=== PATIENT | female | born 1985 | race Caucasian/White ===

== ENCOUNTER → 2017-12-23 11:15 | Outpatient (CLI) | payer MEDICAID, SELFPAY ==
--- NOTE | 2017-12-23 11:20 | XR_ITS ---
XR chest 2V HISTORY: Cough and shortness of air, smoker ITS.REASON: COPD ORDERING PHYSICIAN: Olga Ag PATIENT AGE: 32 years COMPARISON: 10/17/2012 FINDINGS: The cardiomediastinal silhouette and pulmonary vascularity are within normal limits. The lungs are clear without infiltrates, suspicious nodules, or pleural effusions. No acute bony abnormalities. IMPRESSION: Negative chest, no acute finding
== END ==
PROVIDERS: PCP Nurse Practitioner Family; Visit Provider Nurse Practitioner Family
DX: J44.1 Chronic obstructive pulmonary disease with (acute) exacerbation (principal)
CPT/HCPCS: 71046

== ENCOUNTER 2018-03-22 11:46 | Emergency (ER) | payer SELFPAY ==
[2018-03-22 11:49] VITALS: BP 128/57; PULSE 77; RESP 18; TEMP 36.7; O2SAT 99; BMI 23.0
[2018-03-22 11:53] VITALS: BP 128/51; PULSE 77; RESP 18; TEMP 36.7; O2SAT 99; BMI 23.0
--- NOTE | 2018-03-22 12:03 | HMH.EDUTC ---
[facility] [place] Clinical Impression: Muscle strain of left thigh Qualifiers: Encounter type: initial encounter Qualified Code(s): S76.912A - Strain of unspecified muscles, fascia and tendons at thigh level, left thigh, initial encounter Disposition: Home, Self-Care Condition on Discharge: Good Instructions: DI for Muscle Strain, How To Perform RICE (Rest, Ice, Compress, Elevate), How to Use Crutches Additional Instructions: * weight bearing as tolerated but if painful, continue to use crutches * Seated work only the next 2-3 days to allow time for muscle to rest * Rest * ice w/ a cold pack or frozen bag of vegetables 15-20 mins several times a day but no more than once a hour. Do this for up to 3 days. * Elevate as possible to help reduce swelling and therefore, pain * Naproxen every 12 hours as needed for pain and inflammation. If you need something more, you can take tylenol every 4 hours as needed as long as your primary care provider has told you it is ok to take both. * No additional anti-inflammatories like motrin, aleve, advil with the above amount of naproxen. You CAN still take Tylenol every 4 hours as needed if you need something more for pain. * Remember you had a toradol shot, similiar anti-inflammatory in clinic so wait before taking more. Prescriptions: Naproxen 500 mg PO BID #14 tab Referrals: Olga Ag [Primary Care Provider] - (Immediately for new or worsening symptoms but if no improvement by Wednesday with our POC, follow up for further evaluation, management and work restrictions. ) Forms: Work/School Release Time of Disposition: 13:33 Medical Decision Making - Gian Inquiry Pt receiving controlled substance: No Vital Signs: 03/22/18 11:49 03/22/18 11:53 Temperature 98.1 F 98.1 F Temperature Source Oral Temporal Artery Scan Pulse Rate [Left Brachial] 77 77 Respiratory Rate 18 18 Blood Pressure [Left Arm] 128/57 128/51 Blood Pressure Mean [Left Arm] 80 76 Blood Pressure Source [Left Arm] Automatic Cuff Automatic Cuff Blood Pressure Position [Left Arm] Sitting Sitting 02 Sat by Pulse Oximetry 99 99 Oxygen Delivery Method Room Air Room Air Orders (Tests/Meds): ED MEDICATIONS Discontinued Medications Generic Name Dose Route Start Last Admin Trade Name Freq PRN Reason Stop Dose Admin Ketorolac Tromethamine 60 mg 03/22/18 12:13 03/22/18 12:17 Toradol 60mg/2ml Vial IM 03/22/18 12:14 60 mg ONCE ONE Administration - Radiology Data #1 Image(s): Femur Image Reviewed: Yes I reviewed the patient's radiology image Preliminary Findings: Normal/NAD - US Data US Images: Lower Extremity ED US Reviewed: Yes: I have reviewed the patient's US results Preliminary Findings: Normal/NAD Findings Narrative: Insurance And Benefits Clerk reports negative left LE doppler - Reevaluation(s) Time: 12:31 Reevaluation #1: Discussed xray with pt. Wants to rule out DVT. Doppler discussed and ordered. Dept notified 1315: Pt returned from vascular lab. Tech reports negative doppler. results and POC rvwd w/ patient. Pt prefers restrictions for work tomorrow rather than off work. Closed -Sun for inventory. Called Danyelle at her job with me in room and states she will try to work with the restrictions for tomorrow if faxed to [phone]. This is NOT workman's comp [facility] - General Stated complaint: left leg pain, no accident Time Seen by Provider: 03/22/18 12:03 Mode of Arrival: Family Vehicle Source of Information: Patient Limitations: No Limitations Description of Symptoms (Recalled from Triage Doc. by RN): C/O LEFT THIGH PAIN SINCE YESTERDAY. THROBBING IN NATURE. NO INJURY HEENT Symptoms (Recalled from RN notes): No Resp Symptoms (Recalled from RN notes): No Skin Symptoms (Recalled from RN notes): No MS Symptoms (Recalled from RN notes): Yes Functional Status (Recalled from RN notes): N/A - History of Present Illness Provider Complaint: c/o left anterior thigh yasmin
--- NOTE | 2018-03-22 12:13 | XR_ITS ---
XR femur LT 2V CLINICAL INDICATION: ITS.REASON: thigh pain w/o known trauma ORDERING PHYSICIAN: Kaylee Olguin PATIENT AGE: 32 years Comparison: None FINDINGS: No bony or joint abnormality. Unremarkable appearing soft tissues IMPRESSION: Negative left femur
--- NOTE | 2018-03-22 12:30 | NVE_ITS ---
Venous Exam Indications: 729.5 Pain in limb. thigh. IMPRESSIONS 1. There is no evidence of significant Reflux. 2. No evidence of deep or superficial vein thrombosis involving the left lower extremity Left lower extremity venous duplex evaluation. Doppler flow study including spectral analysis, color and dunn scale imaging. Location: Vascular laboratory. Patient status: Emergency department. Tables: Venous flow and imaging: + +-------+ + Location Overall Flow properties + +-------+ + Left common femoral Patent Normal phasicity; spontaneous; normal augmentation; compressible + +-------+ + Left saphenofemoral junction Patent Compressible + +-------+ + Left profunda femoral Patent Compressible + +-------+ + Left femoral Patent Normal phasicity; spontaneous; normal augmentation; compressible + +-------+ + Left greater saphenous Patent Normal phasicity; spontaneous; normal augmentation; compressible + +-------+ + Left popliteal Patent Normal phasicity; spontaneous; normal augmentation; compressible + +-------+ + Left posterior tibial Patent Compressible + +-------+ + Left peroneal Patent Compressible + +-------+ + Left gastrocnemius Patent Compressible + +-------+ + Left soleal Patent Compressible + +-------+ + (Report amended ) Electronically signed by: Jules Olmos [id number]
[2018-03-22 13:47] VITALS: BP 128/51; PULSE 77; RESP 18; TEMP 36.7; O2SAT 99
== END 2018-03-22 13:49 | disposition home or self-care (01) ==
PROVIDERS: Emergency Provider Nurse Practitioner Family; Family Provider Emergency Medicine; PCP Nurse Practitioner Family
DX: S76.912A Strain of unspecified muscles, fascia and tendons at thigh level, left thigh, initial encounter (principal); J45.909 Unspecified asthma, uncomplicated; F32.9 Major depressive disorder, single episode, unspecified; Z88.6 Allergy status to analgesic agent
CPT/HCPCS: 73552; 93971; 96372; 99201

== ENCOUNTER → 2019-02-24 11:20 | Outpatient (CLI) | payer OTHER, SELFPAY ==
--- NOTE | 2019-02-24 11:25 | XR_ITS ---
XR sacrum coccyx min 2V CLINICAL INDICATION: Injury with pain ITS.REASON: LOW BACK PAIN ORDERING PHYSICIAN: Olga Ag PATIENT AGE: 33 years Comparison: None FINDINGS: No fracture, dislocation, lytic, or blastic change evident. IMPRESSION: Negative sacrum/coccyx
== END ==
PROVIDERS: PCP Nurse Practitioner Family; Visit Provider Nurse Practitioner Family
DX: M54.5 Low back pain (principal)
CPT/HCPCS: 72220

== ENCOUNTER 2020-07-30 18:55 | Emergency (ER) | payer OTHER, SELFPAY ==
[2020-07-30 19:20] VITALS: BP 128/82; PULSE 86; RESP 16; TEMP 36.8; O2SAT 99; BMI 27.4
--- NOTE | 2020-07-30 19:29 | XR_ITS ---
PROCEDURE: XR CHEST 2V CLINICAL HISTORY: COPD/HAS COVID SYMPTOM Cough and congestion COMPARISON: CR CXR2 CHEST-AP VIEW ONLY from 10/17/2012 CR CXR2V XR chest 2V from 12/23/2017 FINDINGS: The cardiomediastinal silhouette and pulmonary vascularity are within normal limits. The lungs are clear without infiltrates, suspicious nodules, or pleural effusions. Mild upper thoracic curvature convex right. IMPRESSION: No acute findings. Dictated by: Jules Olmos MD 07/31/2020 05:01 Jules Olmos MD in [place] 07/31/2020 05:01
--- NOTE | 2020-07-30 19:54 | HMH.EDUTC ---
[facility] [place] Dis[place] Clinical Impression: Viral syndrome Disposition: Home, Self-Care Condition on Discharge: Good Instructions: DI for Viral Syndrome Additional Instructions: Drink plenty of fluids. Take tylenol for pain or fever. Take the medications as directed. Follow up with your regular doctor. GO TO THE ER FOR ANY WORSENING SYMPTOMS Prescriptions: Promethazine HCl [Phenergan 25mg tab] 25 mg PO Q6H PRN #20 tab PRN Reason: Nausea And Vomiting Transmission Status: Pending to [facility] # Azithromycin [Z-Bob 250mg Tab*] 250 mg PO UD DOSE PK #6 tab Transmission Status: Pending to [facility] # Referrals: Olga Ag [Primary Care Provider] - Time of Disposition: 20:07 Medical Decision Making - Medical Records Medical records reviewed: No: I reviewed the patient's medical records. - Gian Inquiry Pt receiving controlled substance: No Vital Signs: 07/30/20 19:20 Temperature 98.2 F Temperature Source Oral Pulse Rate [Right Brachial] 86 Respiratory Rate 16 Blood Pressure [Right Arm] 128/82 Blood Pressure Mean [Right Arm] 97 Blood Pressure Source [Right Arm] Automatic Cuff Blood Pressure Position [Right Arm] Sitting 02 Sat by Pulse Oximetry 99 Oxygen Delivery Method Room Air Orders (Tests/Meds): ED MEDICATIONS Discontinued Medications Generic Name Dose Route Start Last Admin Trade Name Freq PRN Reason Stop Dose Admin Ondansetron HCl 4 mg 07/30/20 20:03 07/30/20 20:05 Ondansetron 4mg Odt SL 07/30/20 20:04 4 mg ONCE ONE Administration ORDERS Category Date Time Status Chest XR 2 view (NOT portable) [XR chest 2V] Stat Exams 07/30/20 19:29 Ordered Covid-19 Nasal PCR Sendout [facility] Routine Lab 07/30/20 19:15 Received - Radiology Data #1 Image(s): Chest Image Reviewed: Yes I reviewed the patient's radiology image Preliminary Findings: No Infiltrates Seen [facility] HPI - General Stated complaint: Fever,Sore thoat,cough,SOB Time Seen by Provider: 07/30/20 19:55 Mode of Arrival: Ambulatory Source of Information: Patient Limitations: No Limitations Description of Symptoms (Recalled from Triage Doc. by RN): PATIENT C/O FEVER, SOA, HEADACHE, NAUSEA, AND SORE THROAT X 2 DAYS. DENIES ANY DIRECT COVID EXPOSURE HEENT Symptoms (Recalled from RN notes): Yes Resp Symptoms (Recalled from RN notes): Yes Skin Symptoms (Recalled from RN notes): No MS Symptoms (Recalled from RN notes): No Functional Status (Recalled from RN notes): WNL - History of Present Illness Provider Complaint: She reports that for the past 2 days she has had a cough, chest congestion, headache, sore throat, and body aches. She denies any contact with someone with covid that she knows of. - Related Data Home Medications Medication Instructions Recorded Confirmed Citalopram Hydrobromide [Celexa 20 mg pe PO DAILY 01/31/18 08/02/19 20mg Tablet] estradioL [Estradiol] 2 mg PO DAILY 01/31/18 08/02/19 Levocetirizine Dihydrochloride 5 mg PO DAILY 06/08/19 08/02/19 [Xyzal] Previous Rx's Medication Instructions Recorded Azithromycin [Z-Bob 250mg Tab*] 250 mg PO UD DOSE PK #6 tab 08/17/19 Fluticasone Propionate [Flonase 2 spr NS DAILY #1 bottle 08/17/19 50mcg nasal spray 16gm] guaiFENesin [Mucinex 600mg tablet] 600 mg PO Q12H #10 tab.er.12h 08/17/19 predniSONE [Prednisone 5mg Tab 5 mg PO UD DOSE PK 6 Days #21 pack 08/17/19 Dose-Pack] Cyclobenzaprine HCl [Flexeril 10mg 10 mg PO Q8HP PRN 30 Days #15 tab 10/16/19 tablet] Ketorolac Tromethamine [Toradol 10 mg PO Q6H 5 Days #20 tab 10/16/19 10mg tablet] Azithromycin [Z-Bob 250mg Tab*] 250 mg PO UD DOSE PK #6 tab 07/30/20 Promethazine HCl [Phenergan 25mg 25 mg PO Q6H PRN #20 tab 07/30/20 tab] Allergies Allergy/AdvReac Type Severity Reaction Status Date / Time codeine [CODEINE] Allergy Unknown NA-NAUSEA/V Verified 02/21/19 09:10 OMITING RONDEC COUGH MED AdvReac Unknown Blis
[2020-07-30 20:13] VITALS: BP 128/82; PULSE 86; RESP 16; TEMP 36.8; O2SAT 99
[2020-08-01 17:37] LABS: Covid-19 Nasal PCR Sendout Lex Not Detected
== END 2020-07-30 20:15 | disposition home or self-care (01) ==
PROVIDERS: Emergency Provider Nurse Practitioner Family; PCP Nurse Practitioner Family
DX: Z20.828 Contact with and (suspected) exposure to other viral communicable diseases (principal); B34.9 Viral infection, unspecified; F17.210 Nicotine dependence, cigarettes, uncomplicated
CPT/HCPCS: 71046; 99202; U0004

== ENCOUNTER → 2021-01-01 13:41 | Outpatient (CLI) | payer OTHER, SELFPAY ==
--- NOTE | 2021-01-01 13:45 | MM_ITS ---
PROCEDURE: MM DIG MAMM BI DX W/CAD Digital Breast Tomosynthesis Included CLINICAL INDICATION: MASTODYNIA There is a history of breast cancer patient's maternal and maternal great aunts. Patient complains of a palpable area right breast some tenderness past 6 months. Patient currently is on estradiol. COMPARISON: No exams were available for comparison TECHNIQUE: Standard CC and MLO images and 3D Tomosynthesis was obtained. R2 CAD reviewed. FINDINGS: The breasts are composed primarily with minimal fibroglandular elements in the subareolar regions bilaterally. There are no CAD markings. A skin marker was placed upper right breast at the site of the patient's complaint. There is no underlying abnormality identified. This portion of the breast is composed entirely of fat. There are 2 tiny benign-appearing nodular densities outer quadrant right breast a similar appearing benign-appearing nodular density lower quadrant left breast. In view the patient's complaint of bilateral breast pain recommended patient return for bilateral breast ultrasound with particular attention to the outer quadrant of each breast. IMPRESSION: Fibrofatty parenchyma with small benign-appearing nodular densities in each breast BI-RAD Category: 0 Need Additional Imaging Evaluation FOLLOW-UP: IMM Immediate Follow-up Recommended (A letter has been sent to the patient regarding results of the study.) Dictated by: Dr. Castro Seymour MD 01/03/2021 12:25 Dr. Castro Seymour MD in [place] 01/03/2021 12:25
--- NOTE | 2021-01-01 13:46 | US_ITS ---
PROCEDURE: US BREAST LT COMPLETE CLINICAL INDICATION: MASTODYNIA COMPARISON: Ultrasound right breast same date FINDINGS: There is a well-defined hypoechoic lesion just behind the nipple measuring 1.4 x 0.7 1.4 cm which shows faint homogeneous echoes and mild acoustic shadowing beneath and in view of the well-defined borders is suggestive of a fibroadenoma. No other abnormality is noted. There are 2 normal appearing nodes in the axilla. IMPRESSION: Probable fibroadenoma, suggest consideration of a follow-up ultrasound left breast in 6 months to evaluate for interval stability. Dictated by: Dr. Castro Seymour MD 01/03/2021 12:35 Dr. Castro Seymour MD in [place] 01/03/2021 12:35
--- NOTE | 2021-01-01 13:46 | US_ITS ---
PROCEDURE: US BREAST RT COMPLETE CLINICAL INDICATION: MASTODYNIA COMPARISON: MG MM DIG MAMM BI DX W/CAD from 01/01/2021 US US BREAST LT COMPLETE from 01/01/2021 FINDINGS: Scanning of the right breast with particular attention to the area of interest shows normal appearing echogenicity throughout. There is no suspicious cystic or solid lesions seen. There are 2 normal appearing nodes in the axilla. Please disregard the statement suggesting ultrasound left breast in the previous mammogram dictation as this was are right performed on 01/01/2021. IMPRESSION: Unremarkable ultrasound right breast Dictated by: Dr. Castro Seymour MD 01/03/2021 12:31 Dr. Castro Seymour MD in [place] 01/03/2021 12:31
== END ==
PROVIDERS: PCP Nurse Practitioner Family; Visit Provider Nurse Practitioner Family
DX: N64.4 Mastodynia (principal)
CPT/HCPCS: 76641; 77062; 77066; G0279

== ENCOUNTER 2021-01-31 14:31 | Emergency (ER) | payer OTHER, SELFPAY ==
[2021-01-31 15:10] VITALS: PULSE 80; RESP 18; TEMP 36.3; O2SAT 96; BMI 21.6
[2021-01-31 15:28] VITALS: BP 00/00; PULSE 80; RESP 18; TEMP 36.3; O2SAT 96
--- NOTE | 2021-01-31 15:38 | HMH.EDUTC ---
[facility] [place] Disposition Clinical Impression: Exposure to COVID-19 virus Disposition: Home, Self-Care Condition on Discharge: Good Instructions: Preventing the Spread of Coronavirus Discharge Instructions Additional Instructions: You have been tested for COVID19. You will need to quarantine for 10-14 days based on exposure. [facility] will contact you with guidelines. Referrals: Olga Ag [Primary Care Provider] - Time of Disposition: 15:40 Medical Decision Making - Gian Inquiry Pt receiving controlled substance: No Orders (Tests/Meds): ORDERS Category Date Time Status Covid-19 Nasal PCR ([facility]) Routine Lab 01/31/21 15:27 Ordered [facility] [place] HPI - General Stated complaint: covid exposure Time Seen by Provider: 01/31/21 15:38 - History of Present Illness Provider Complaint: Brother tested positive for COVID19 this am. He was exposed thru a coworker last week. She keeps his children while he travels for work. She is asymptomatic. Onset (ago): day(s) (1) Relieving factors: none Exacerbating factors: none Treatments prior to arrival: none - Related Data Home Medications Medication Instructions Recorded Confirmed Citalopram Hydrobromide [Celexa 20 mg pe PO DAILY 01/31/18 08/02/19 20mg Tablet] estradioL [Estradiol] 2 mg PO DAILY 01/31/18 08/02/19 Levocetirizine Dihydrochloride 5 mg PO DAILY 06/08/19 08/02/19 [Xyzal] Previous Rx's Medication Instructions Recorded Azithromycin [Z-Bob 250mg Tab*] 250 mg PO UD DOSE PK #6 tab 08/17/19 Fluticasone Propionate [Flonase 2 spr NS DAILY #1 bottle 08/17/19 50mcg nasal spray 16gm] guaiFENesin [Mucinex 600mg tablet] 600 mg PO Q12H #10 tab.er.12h 08/17/19 predniSONE [Prednisone 5mg Tab 5 mg PO UD DOSE PK 6 Days #21 pack 08/17/19 Dose-Pack] Cyclobenzaprine HCl [Flexeril 10mg 10 mg PO Q8HP PRN 30 Days #15 tab 10/16/19 tablet] Ketorolac Tromethamine [Toradol 10 mg PO Q6H 5 Days #20 tab 10/16/19 10mg tablet] Azithromycin [Z-Bob 250mg Tab*] 250 mg PO UD DOSE PK #6 tab 07/30/20 Promethazine HCl [Phenergan 25mg 25 mg PO Q6H PRN #20 tab 07/30/20 tab] Allergies Allergy/AdvReac Type Severity Reaction Status Date / Time codeine [CODEINE] Allergy Unknown NA-NAUSEA/V Verified 02/21/19 09:10 OMITING RONDEC COUGH MED AdvReac Unknown Blister Uncoded 03/22/18 11:59 [facility] History - Hepatitis A Screen Attestation statement:: This patient has been screened for Hepatitis A risk factors. I have reviewed the patient's past medical history: Yes Medical History: Reports:: Asthma, Cancer, Depression Denies:: Diabetes Mellitus Type 1, Diabetes Mellitus Type 2, MRSA Laterality Cases: Bilateral: Tonsillectomy Other Surgeries: Yes: Appendectomy, Cholecystectomy, Hysterectomy-Total Amputation: No Fractures: No - Social History Smoking Status: Current every day smoker Tobacco Type: cigarettes # Packs/Day (cigarettes): 1 Alcohol Intake: current Occupational Status: other - Psychiatric History Pschychiatric History:: Reports:: Depression ROS Obtained: Yes All systems reviewed & no additional complaints Physical Exam - General General appearance: alert, in no apparent distress - Head Head exam: normocephalic - Eye Eye exam: Present: PERRL - ENT ENT exam: Present: normal oropharynx - Chest Chest inspection: Present: symmetric chest wall rise - Respiratory Respiratory exam: Present: normal lung sounds bilaterally - Cardiovascular Cardiovascular exam: Present: regular rate, normal rhythm - Neurological Exam Neurological exam: Present: alert, oriented X3 - Psychiatric Psychiatric exam: Present: normal affect, normal mood - Skin Skin exam: Present: warm, dry, intact
== END 2021-01-31 15:39 | disposition home or self-care (01) ==
PROVIDERS: Emergency Provider Physician Assistant; PCP Nurse Practitioner Family
DX: Z20.822 Contact with and (suspected) exposure to COVID-19 (principal); J45.909 Unspecified asthma, uncomplicated; Z79.899 Other long term (current) drug therapy; F17.210 Nicotine dependence, cigarettes, uncomplicated; Z90.49 Acquired absence of other specified parts of digestive tract; Z90.79 Acquired absence of other genital organ(s)
CPT/HCPCS: 99202; G0463; U0003

== ENCOUNTER 2021-02-13 12:46 | Emergency (ER) | payer OTHER, SELFPAY ==
[2021-02-13 12:48] VITALS: BP 159/90; PULSE 93; RESP 16; TEMP 36.9; O2SAT 98; BMI 28.3
--- NOTE | 2021-02-13 13:10 | HMH.EDGENADL ---
ED Disposition Clinical Impression: Gastroenteritis Disposition: Home, Self-Care Condition on Discharge: Good Instructions: DI for Viral Syndrome Prescriptions: Ondansetron [Zofran 4mg ODT] 4 mg PO Q6 PRN #10 tab.rapdis PRN Reason: Nausea Transmission Status: Pending to [facility] #[id number] Referrals: Olga Ag [Primary Care Provider] - 3 days - Critical Care Critical Care Time: No Attestation: On 02/13/21, the high probability of a clinically significant, sudden or life threatening deterioration of the following system(s) required my full and direct attention, intervention and personal management. The time I documented below is in addition to time spent performing reported procedures but includes the following listed in this critical care notation. Medical Decision Making - Medical Records Medical records reviewed: Yes: I reviewed the patient's medical records. - Gian Inquiry Pt receiving controlled substance: No Vital Signs: 02/13/21 12:48 Temperature 98.4 F Temperature Source Oral Pulse Rate [Left Radial] 93 H Respiratory Rate 16 Blood Pressure [Right Arm] 159/90 H Blood Pressure Mean [Right Arm] 113 02 Sat by Pulse Oximetry 98 Oxygen Delivery Method Room Air - Lab Data Lab results reviewed: Yes: I reviewed the patient's lab results. Lab Results 02/13/21 13:15: WBC 8.3, RBC 4.82, Hgb 14.4, Hct 42.0, MCV 87.2, MCH 29.8, MCHC 34.2, RDW 12.9, Plt Count 339, MPV 8.7, Neut % (Auto) 47.0, Lymph % (Auto) 46.6, [place] % (Auto) 4.4, Eos % (Auto) 1.4, Baso % (Auto) 0.6, Neut # (Auto) 3.9, Lymph # (Auto) 3.9, [place] # (Auto) 0.4, Eos # (Auto) 0.1, Baso # (Auto) 0.1 02/13/21 13:15: Sodium 139, Potassium 3.5, Chloride 106, Carbon Dioxide 25, Anion Gap 11.5, BUN 10, Creatinine 0.60, Estimated Creat Clear 153, Estimated GFR 115, Est GFR ( Amer) 139, Glucose 114 H, Calcium 9.9, Total Bilirubin 0.6, AST 50 H, ALT 62, Alkaline Phosphatase 89, Total Protein 7.9, Albumin 4.8, Globulin 3.1, Albumin/Globulin Ratio 1.5, Lipase 76 Result diagrams: 02/13/21 13:15 02/13/21 13:15 Orders (Tests/Meds): ED MEDICATIONS Generic Name Dose Route Start Last Admin Trade Name Freq PRN Reason Stop Dose Admin Sodium Chloride 1,000 mls @ 999 mls/hr 02/13/21 13:15 02/13/21 13:15 Sod Chlor 0.9% 1000ml Bag IV 02/13/21 14:15 999 mls/hr .Q1H1M ALINE Administration Discontinued Medications Generic Name Dose Route Start Last Admin Trade Name Freq PRN Reason Stop Dose Admin Ondansetron HCl 4 mg 02/13/21 13:13 02/13/21 13:15 Ondansetron 4mg/2ml Vial IV 02/13/21 13:14 4 mg ONCE ONE Administration Medical Decision Narrative: Patient has a benign abdomen with no pain on exam. No clinically significant metabolic derangement. She has no vomiting or diarrhea here. She is feeling much better after Zofran and fluids, tolerating p.o. well. Suspect viral syndrome. History, exam, work-up inconsistent with bowel obstruction, diverticulitis, UTI. Discharged home with prescription for Zofran and close follow-up with PCP. General Adult HPI - General Stated complaint: diarrhea, vomiting Time Seen by Provider: 02/13/21 13:11 Mode of Arrival: Ambulatory Source of Information: Patient Limitations: No Limitations - History of Present Illness HPI narrative: This is a 35-year-old female with a past medical history significant for seasonal allergies, COPD who presents to the emergency department for evaluation of watery diarrhea for a week and a half and vomiting for the last 2 days. She has generalized abdominal crampiness from the diarrhea. No dysuria. She feels dehydrated and states she is not urinating as much as she normally does. She has tried Pepto-Bismol and Imodium with no relief of symptoms. Abdominal surgeries include total hysterectomy, appendectomy, cholecystectomy. Patient states that her symptoms started after she [place] about a week and a half ago to look f
[2021-02-13 13:31] LABS: Basophils # 0.1 K/mm3 (0-0.2); Basophils % 0.6 % (0.1-2.0); Eosinophils # 0.1 K/mm3 (0.0-0.4); Eosinophils % 1.4 % (0.1-12.0); Hemoglobin 14.4 g/dL (12.2-16.2); Lymphocytes # 3.9 K/mm3 (0.7-4.5); Lymphocytes % 46.6 % (10-50); Mean Corpuscular HGB Conc 34.2 g/dL (31.8-35.4); Mean Corpuscular Hemoglobin 29.8 pg (27.0-31.2); Mean Corpuscular Volume 87.2 fl (81-99); Mean Platelet Volume 8.7 fl (7.4-10.4); Monocytes # 0.4 K/mm3 (0.1-1.0); Monocytes % 4.4 % (1.7-9.3); Neutrophils # 3.9 K/mm3 (1.8-7.8); Platelet Count 339 K/mm3 (142-424); Red Blood Count 4.82 M/mm3 (4.20-5.40); Red Cell Distribution Width 12.9 % (11.5-17.5); White Blood Count 8.3 K/mm3 (4.8-10.8)
[2021-02-13 13:36] LABS: Chloride 106 mmol/L (98-107); Potassium 3.5 mmoL/L (3.5-5.1); Sodium 139 mmol/L (136-145)
[2021-02-13 13:38] LABS: Blood Urea Nitrogen 10 mg/dl (7-17); Creatinine Clearance Estimated 153 mL/min (50-200)
[2021-02-13 13:39] LABS: Alanine Aminotransferase 62 U/L (12-78); Albumin Level 4.8 g/dl (3.5-5.0); Albumin/Globulin Ratio 1.5 (1.1-1.8); Alkaline Phosphatase 89 U/L (38-126); Anion Gap 11.5 mEq/L (5-15); Aspartate Amino Transferase 50 U/L (14-36); Bilirubin,Total 0.6 mg/dl (0.2-1.3); Calcium 9.9 mg/dl (8.4-10.2); Carbon Dioxide 25 mmol/L (22.0-30.0); Estimated Glomerular Filt Rate 115 ml/min (>60); GFR (African American) 139 ML/MIN (>60); Globulin 3.1 g/dL (1.3-3.2); Glucose 114 mg/dl (74-100); Lipase 76 U/L (23-300); Total Protein,Serum 7.9 g/dl (6.3-8.2)
[2021-02-13 14:06] VITALS: BP 100/77; PULSE 67; O2SAT 98
[2021-02-13 14:21] VITALS: BP 100/77; PULSE 67; RESP 16; TEMP 36.9; O2SAT 100
== END 2021-02-13 14:24 | disposition home or self-care (01) ==
PROVIDERS: Emergency Provider Emergency Medicine; PCP Nurse Practitioner Family
DX: K52.9 Noninfective gastroenteritis and colitis, unspecified (principal); J44.9 Chronic obstructive pulmonary disease, unspecified; F33.1 Major depressive disorder, recurrent, moderate; Z79.899 Other long term (current) drug therapy
CPT/HCPCS: 80053; 83690; 85025; 96365; 96375; 99282; J2405

== ENCOUNTER 2021-03-12 22:52 | Emergency (ER) | payer OTHER, SELFPAY ==
--- NOTE | 2021-03-12 22:47 | ECG_ITS ---
APPROVED REPORT Exam: Resting ECG HR:80 bpm ECG Measurements Heart Rate 80 AXES TN 156 P 62 QRSd 90 QRS 66 QT 398 T 61 QTc 459 Conclusion Normal sinus rhythm Normal ECG Electronically signed by : Lee Sood, 03/13/2021 06:56:09
[2021-03-12 22:53] VITALS: BP 122/73; PULSE 60; RESP 18; TEMP 36.6; O2SAT 97; BMI 28.3
--- NOTE | 2021-03-12 23:00 | XR_ITS ---
PROCEDURE INFORMATION: Exam: XR Chest Exam date and time: 03/12/2021 11:00 PM Age: 35 years old Clinical indication: Shortness of breath; Patient HX: Weakness; Additional info: Cp TECHNIQUE: Imaging protocol: XR of the chest. Views: 1 view. COMPARISON: CR XR CHEST 2V 07/30/2020 7:39 PM FINDINGS: Lungs: The lungs are clear without consolidation. There are hazy bibasilar opacities consistent with overlying breast attenuation. Pleural spaces: Unremarkable. No pleural effusion. No pneumothorax. Heart/Mediastinum: The cardiac silhouette, mediastinal contours and hilar shadows appear unremarkable. Bones/joints: Osseous structures grossly intact. Organs: Status post cholecystectomy. IMPRESSION: No acute cardiopulmonary disease.
--- NOTE | 2021-03-12 23:00 | PC.NURSE ---
contact [facility] for records from er visit
[2021-03-12 23:14] LABS: Basophils % 0.5 % (0.1-2.0); Eosinophils # 0.1 K/mm3 (0.0-0.4); Hematocrit 38.3 % (37.0-47.0); Hemoglobin 13.7 g/dL (12.2-16.2); Lymphocytes # 4.4 K/mm3 (0.7-4.5); Lymphocytes % 47.8 % (10-50); Mean Corpuscular HGB Conc 35.8 g/dL (31.8-35.4); Mean Corpuscular Hemoglobin 30.3 pg (27.0-31.2); Mean Corpuscular Volume 84.8 fl (81-99); Mean Platelet Volume 9.1 fl (7.4-10.4); Monocytes # 0.5 K/mm3 (0.1-1.0); Monocytes % 4.9 % (1.7-9.3); Neutrophils # 4.3 K/mm3 (1.8-7.8); Neutrophils % 45.8 % (37.0-80.0); Platelet Count 326 K/mm3 (142-424); Red Blood Count 4.52 M/mm3 (4.20-5.40); Red Cell Distribution Width 12.9 % (11.5-17.5); White Blood Count 9.3 K/mm3 (4.8-10.8)
[2021-03-12 23:19] LABS: Alanine Aminotransferase 43 U/L (12-78); Albumin Level 4.3 g/dl (3.5-5.0); Albumin/Globulin Ratio 1.5 (1.1-1.8); Alkaline Phosphatase 73 U/L (38-126); Anion Gap 10.5 mEq/L (5-15); Aspartate Amino Transferase 44 U/L (14-36); Bilirubin,Total 0.8 mg/dl (0.2-1.3); Blood Urea Nitrogen 7 mg/dl (7-17); Calcium 9.3 mg/dl (8.4-10.2); Carbon Dioxide 25 mmol/L (22.0-30.0); Chloride 110 mmol/L (98-107); Creatinine Clearance Estimated 131 mL/min (50-200); Estimated Glomerular Filt Rate 96 ml/min (>60); GFR (African American) 117 ML/MIN (>60); Globulin 2.9 g/dL (1.3-3.2); Glucose 90 mg/dl (74-100); Potassium 3.5 mmoL/L (3.5-5.1); Sodium 142 mmol/L (136-145); Total Protein,Serum 7.2 g/dl (6.3-8.2)
[2021-03-12 23:25] LABS: C-Reactive Protein 0.7 mg/L (0-4)
[2021-03-12 23:30] VITALS: BP 118/80; PULSE 59; RESP 20
[2021-03-12 23:34] LABS: Troponin I < 0.01 ng/ml (0.00-0.034)
[2021-03-12 23:38] LABS: Procalcitonin 0.043 ng/mL (0.0-2.0)
[2021-03-12 23:46] LABS: Erythrocyte Sedimentation Rate 15 mm/hr (0-20)
[2021-03-13] VITALS (7 sets, daily range): BP systolic 104–132; BP diastolic 65–94; PULSE 56–68; RESP 13–22; TEMP 36.6; O2SAT 97–100
[2021-03-13 00:02] LABS: Benzodiazepines Screen,Urine Positive ng/ml (<200)
[2021-03-13 00:03] LABS: Amphetamine/Metha Screen,Urine Negative ng/ml (<1000)
[2021-03-13 00:04] LABS: Barbiturates Screen,Urine Negative ng/ml (<200); Cannabinoid Screen,Urine Positive ng/ml (<50)
[2021-03-13 00:05] LABS: Cocaine Screen,Urine Negative ng/ml (<300)
[2021-03-13 00:06] LABS: Methadone Screen,Urine Negative ng/ml (<300); Opiate Screen,Urine Negative ng/ml (<300)
[2021-03-13 00:07] LABS: Phencyclidine Screen,Urine Negative ng/ml (<25)
--- NOTE | 2021-03-13 00:27 | CT_ITS ---
PROCEDURE INFORMATION: Exam: CTA Chest With Contrast Exam date and time: 03/13/2021 12:27 AM Age: 35 years old Clinical indication: Angina pectoris; Patient HX: Chest pain radiating down arms; Additional info: SOA TECHNIQUE: Imaging protocol: Computed tomographic angiography of the chest with contrast. 3D rendering (Not supervised by radiologist): MIP and/or 3D reconstructed images were created by the technologist. Radiation optimization: All CT scans at this facility use at least one of these dose optimization techniques: automated exposure control; mA and/or kV adjustment per patient size (includes targeted exams where dose is matched to clinical indication); or iterative reconstruction. Contrast material: ISOVUE 370; Contrast volume: 70 ml; Contrast route: INTRAVENOUS (IV); COMPARISON: CR XR CHEST PORTABLE 03/12/2021 11:18 PM FINDINGS: Pulmonary arteries: There is no convincing evidence of a significant pulmonary embolus. Aorta: There is no aortic aneurysm or dissection. Lungs: Other than minimal atelectasis, the lungs are clear without consolidation. The central airway is clear. Pleural spaces: Unremarkable. No pneumothorax. No pleural effusion. Heart: Cardiac chambers appear grossly unremarkable and there is no pericardial effusion. Lymph nodes: No pathologic lymphadenopathy identified. Liver: Hepatic steatosis. Bones/joints: No acute osseous abnormality Soft tissues: Unremarkable. IMPRESSION: 1. No evidence of a significant pulmonary embolus. 2. Hepatic steatosis. 3. Status post cholecystectomy.
--- NOTE | 2021-03-13 00:40 | [facility].EDCP ---
ED Disposition Clinical Impression: Atypical chest pain Disposition: Home, Self-Care Condition on Discharge: Good Instructions: DI for Atypical Chest Pain Additional Instructions: see pcp and card for follow up Referrals: Olga Ag [Primary Care Provider] - Kehinde Rae MD [Staff Physician] - - Critical Care Critical Care Time: No Attestation: On 03/12/21, the high probability of a clinically significant, sudden or life threatening deterioration of the following system(s) required my full and direct attention, intervention and personal management. The time I documented below is in addition to time spent performing reported procedures but includes the following listed in this critical care notation. Medical Decision Making - Medical Records Medical records reviewed: Yes: I reviewed the patient's medical records. - Gian Inquiry Pt receiving controlled substance: No Vital Signs: 03/12/21 22:53 03/12/21 23:30 03/13/21 00:00 Temperature 97.9 F Temperature Source Oral Pulse Rate 59 L 62 Pulse Rate [Right] 60 Respiratory Rate 18 20 13 Blood Pressure 118/80 124/94 H Blood Pressure [Right Arm] 122/73 Blood Pressure Mean [Right Arm] 89 02 Sat by Pulse Oximetry 97 03/13/21 00:30 03/13/21 01:05 03/13/21 01:38 Temperature Temperature Source Pulse Rate 62 63 68 Pulse Rate [Right] Respiratory Rate 13 19 15 Blood Pressure 132/77 108/72 L 105/65 L Blood Pressure [Right Arm] Blood Pressure Mean [Right Arm] 02 Sat by Pulse Oximetry 97 99 100 03/13/21 02:00 Temperature Temperature Source Pulse Rate 56 L Pulse Rate [Right] Respiratory Rate 14 Blood Pressure 105/67 L Blood Pressure [Right Arm] Blood Pressure Mean [Right Arm] 02 Sat by Pulse Oximetry 99 - Lab Data Lab results reviewed: Yes: I reviewed the patient's lab results. Lab Results 03/12/21 23:00: WBC 9.3, RBC 4.52, Hgb 13.7, Hct 38.3, MCV 84.8, MCH 30.3, MCHC 35.8 H, RDW 12.9, Plt Count 326, MPV 9.1, Neut % (Auto) 45.8, Lymph % (Auto) 47.8, [place] % (Auto) 4.9, Eos % (Auto) 1.0, Baso % (Auto) 0.5, Neut # (Auto) 4.3, Lymph # (Auto) 4.4, [place] # (Auto) 0.5, Eos # (Auto) 0.1, Baso # (Auto) 0.0 03/12/21 23:00: Sodium 142, Potassium 3.5, Chloride 110 H, Carbon Dioxide 25, Anion Gap 10.5, BUN 7, Creatinine 0.70, Estimated Creat Clear 131, Estimated GFR 96, Est GFR ( Amer) 117, Glucose 90, Calcium 9.3, Total Bilirubin 0.8, AST 44 H, ALT 43, Alkaline Phosphatase 73, Troponin I < 0.01, C-Reactive Protein 0.7, Total Protein 7.2, Albumin 4.3, Globulin 2.9, Albumin/Globulin Ratio 1.5 03/12/21 23:00: ESR 15 03/12/21 23:00: Procalcitonin 0.043 03/12/21 23:25: Urine Opiates Screen Negative, Urine Methadone Screen Negative, Ur Barbituates Screen Negative, Ur Phencyclidine Scrn Negative, Ur Amphetamines Screen Negative, U Benzodiazepines Scrn Positive H, Urine Cocaine Screen Negative, U Marijuana (THC) Screen Positive H 03/13/21 01:00: SARS-CoV-2 (PCR) Not detected, Influenza A Untype (PCR) Not detected, Influenza Type B (PCR) Not detected Result diagrams: 03/12/21 23:00 03/12/21 23:00 Orders (Tests/Meds): ED MEDICATIONS Generic Name Dose Route Start Last Admin Trade Name Freq PRN Reason Stop Dose Admin Sodium Chloride 1,000 mls @ 999 mls/hr 03/12/21 23:15 03/12/21 23:07 Sod Chlor 0.9% 1000ml Bag IV 03/13/21 00:15 999 mls/hr .[id number] ALINE Administration Discontinued Medications Generic Name Dose Route Start Last Admin Trade Name Freq PRN Reason Stop Dose Admin Iopamidol 70 ml 03/13/21 01:29 03/13/21 01:30 Iopamidol-370 (76%);100ml Bottle IV 03/13/21 01:30 70 ml ONCE ONE Administration Ketorolac Tromethamine 30 mg 03/12/21 23:02 03/12/21 23:07 Ketorolac 30mg/Ml Vial IV 03/12/21 23:03 30 mg ONCE ONE Administration Ondansetron HCl 4 mg 03/12/21 23:02 03/12/21 23:07 Ondansetron 4mg/2ml Vial IV 03/12/21 23:03 4 mg ONCE ONE Administration Sodium Chloride 50
[2021-03-13 01:07] LABS: Coronavirus 19, PCR Not Detected (NotDetected); Influenza A, PCR Not Detected (NotDetected); Influenza B, PCR Not Detected (NotDetected)
== END 2021-03-13 02:48 | disposition home or self-care (01) ==
PROVIDERS: Emergency Provider Emergency Medicine; PCP Nurse Practitioner Family
DX: R07.9 Chest pain, unspecified (principal); F12.10 Cannabis abuse, uncomplicated; J45.909 Unspecified asthma, uncomplicated; F33.1 Major depressive disorder, recurrent, moderate; F17.210 Nicotine dependence, cigarettes, uncomplicated
CPT/HCPCS: 71045; 71275; 80053; 80305; 84145; 84484; 85025; 85651; 86140; 93005; 96365; 96375; 99283; J2405; Q9967; U0003

== ENCOUNTER → 2021-03-27 15:08 | Outpatient (CLI) | payer OTHER, SELFPAY | PROVIDERS: PCP Nurse Practitioner Family; Visit Provider Internal Medicine Cardiovascular Disease | DX: R55 Syncope and collapse (principal) | CPT/HCPCS: 93225 ==

== ENCOUNTER → 2021-04-11 07:54 | Outpatient (CLI) | payer OTHER, SELFPAY ==
--- NOTE | 2021-04-11 | CA_ITS ---
APPROVED REPORT Exam: Exercise Treadmill Technologist: yasmin quinn, Ht: 5 ft 3 in Wt: 143 lbs BSA: 1.68 m2 HR: 67 bpm BP: 128/81 mmHg Indications: CP, SOA Medical History Medications: Omeprazole,,,,, Flonase,,,,, Albuterol,,,,, Estradiol,,,,, ClARITAN,,,,, Hydroxyzine,,,,, Allergies: Codeine, Rondec Cardiac Risk Factors: FHX of CAD, Smoking Stress Test Details Test: Dom HR Resting HR: 89 bpm Max Heart Rate (APMHR): 187 bpm Max HR Achieved: 153 bpm Target HR (85% APMHR): 158 bpm % of APMHR: 81 Recovery HR: 124 bpm BP Resting BP: 128/81 mmHg Max BP: 140/82 mmHg Recovery BP: 140.0/82.0 mmHg ECG Resting ECG: Sinus rhythm Clinical Exercise duration: 09:31 min Highest Stage Achieved: Stage 4: 4.2 mph at 16% grade. Exercise capacity: 10.1 METs Stress ECG Conclusion Dom protocol completed. Test stopped due to SOB and chest pain. Symptoms: CP and SOB at peak exercise which resolved in recovery. Occ PVC. Less than 1.5mm ST depression. GXT only. Appropriate BP response to exercise. EKG with exercise is negative for ischemia. Test Summary REST . . . . . . . Standing REST . . . . . . . Sitting REST 02:24 0.0 0.0 89 . 128/ 81 . . Stage 1 01:00 10.0 1.7 93 . . . . Stage 1 02:00 10.0 1.7 108 . . . . Stage 1 03:00 10.0 1.7 113 . 130/ 78 . . Stage 2 01:00 12.0 2.5 116 . . . . Stage 2 02:00 12.0 2.5 122 . . . . Stage 2 03:00 12.0 2.5 126 . . . . Stage 3 01:00 14.0 3.4 136 . 138/ 80 . . Stage 3 02:00 14.0 3.4 147 . 138/ 80 . . Stage 3 03:00 14.0 3.4 152 . 138/ 80 . . Stage 4 00:31 16.0 4.2 . . . . Stop exercise at 09:31 RECOVERY 01:00 0.0 0.0 136 . . . . RECOVERY 02:00 0.0 0.0 105 . 140/ 82 . . RECOVERY 03:00 0.0 0.0 90 . 140/ 82 . . RECOVERY 04:00 0.0 0.0 88 . 134/ 80 . . RECOVERY 04:17 0.0 0.0 89 . 134/ 80 . . Electronically signed by : Jarad Bolton, 04/11/2021 10:06:11
--- NOTE | 2021-04-11 07:54 | CA_ITS ---
APPROVED REPORT EXAM: Comprehensive 2D, Doppler, and color-flow Echocardiogram Jacquard Card Cutter: Stephany Guevara RVT Ht: 5 ft 3 in Wt: 143lbs BSA: 1.68 BP: 124/83 mmHg Indications: CP,SYNCOPE,SOA,GERD,SMOKER 2D Dimensions LVOT 2.09 cm (M/F) 1.5-2.5 LA Volume 26.50 mL LA Volume Index 15.86 mL/m2 (M/F) 16-34 M-Mode Dimensions RVDd 1.60 cm (0.9-2.6) LA Diam 2.62 cm (1.9-4.0) LVDd 4.62 cm (3.5-5.7) Ao Diam 2.96 cm (2.0-3.7) LVDs 3.20 cm (3.5-5.7) IVSd 0.55 cm (0.6-1.1) PWd 0.32 cm (0.6-1.1) EF (Teich) 58.30% FS 30.70% EDV (Teich) 98.30 mL TAPSE 1.79 (<1.7) ESV (Teich) 41.00 mL LV Diastology E Decel Time 230.00 (160-240 msec) E/A Ratio 2.4 MED E' 11.90 (< 7 cm/sec) E'/MED E' Ratio 8.55 (>14) LAT E' 16.10 (<10 cm/sec) E/LAT E' Ratio 6.32 (>14) Aortic Valve AO Peak GR. 6.10 mmHg Mitral Valve MV E Max Ronaldo. 102.00 (40-130 cm/s) MV A Velocity 43.00 (40-130 cm/s) E/A Ratio 2.38 MV Decel. Time 230.00 (160-240 ms) MV PHT 67.00 ms Pulmonary Valve PV Peak Velocity 62.00 (50-150 cm/s) Tricuspid Valve TR P. Velocity 201.00 cm/s RAP Estimate 10.00 mmHg RVSP 26.20 mmHg Left Ventricle Left atrium is normal size, left ventricle is normal size, there is no concentric left ventricular hypertrophy, visually estimated ejection fraction 55% with no regional wall motion abnormality, diastolic parameters are within normal range. Right Ventricle Right atrium and right ventricle are normal size and contractility. Aortic Valve Aortic valve is grossly normal, there is no aortic stenosis or aortic insufficiency. Mitral Valve Mitral valve grossly normal, there is trace mitral regurgitation. Tricuspid Valve Tricuspid valve grossly normal, there is trace tricuspid regurgitation, tricuspid regurgitation jet velocity is inadequate for calculation of the right ventricular systolic pressure. Pulmonic Valve Pulmonic valve is poorly visualized. Great Vessels Aortic root is normal size. Inferior vena cava is normal size with normal inspiratory collapse. Pericardium No significant pericardial effusion noted. Conclusion 1. Normal left ventricular size, preserved left ventricular systolic function, visually estimated ejection fraction 55% with no regional wall motion abnormality, diastolic parameters are within normal range. 2. Trace mitral and tricuspid regurgitation. 3. No significant pericardial effusion noted. Electronically signed by : Jarad Bolton, 04/11/2021 10:25:19
== END ==
PROVIDERS: PCP Nurse Practitioner Family; Visit Provider Internal Medicine Cardiovascular Disease
DX: R06.00 Dyspnea, unspecified (principal); R07.89 Other chest pain; F17.200 Nicotine dependence, unspecified, uncomplicated
CPT/HCPCS: 93017; 93306

== ENCOUNTER 2021-05-16 13:25 | Emergency (ER) | payer OTHER, SELFPAY ==
[2021-05-16 13:26] VITALS: BP 135/79; PULSE 62; RESP 18; TEMP 36.6; O2SAT 98; BMI 25.7
--- NOTE | 2021-05-16 13:26 | [facility]H.EDGENADL ---
ED Disposition Clinical Impression: Left anterior knee pain Disposition: Home, Self-Care Condition on Discharge: Good Referrals: Provider,Referral, [Referring] - - Critical Care Critical Care Time: No Attestation: On , the high probability of a clinically significant, sudden or life threatening deterioration of the following system(s) required my full and direct attention, intervention and personal management. The time I documented below is in addition to time spent performing reported procedures but includes the following listed in this critical care notation. Medical Decision Making - Gian Inquiry Pt receiving controlled substance: No Vital Signs: 05/16/21 13:26 Temperature 97.8 F Temperature Source Temporal Artery Scan Pulse Rate [Right] 62 Respiratory Rate 18 Blood Pressure [Right Arm] 135/79 Blood Pressure Mean [Right Arm] 97 02 Sat by Pulse Oximetry 98 Orders (Tests/Meds): ED MEDICATIONS Discontinued Medications Generic Name Dose Route Start Last Admin Trade Name Freq PRN Reason Stop Dose Admin Hydrocodone Bitart/Acetaminophen 1 tab 05/16/21 13:37 05/16/21 13:41 Hydrocodone/Apap 5/325 Mg Tablet PO 05/16/21 13:38 1 tab ONCE ONE Administration Hydrocodone Bitart/Acetaminophen 1 tab 05/16/21 15:06 05/16/21 15:45 Hydrocodone/Apap 5/325 Mg Tablet PO 05/16/21 15:07 1 tab ONCE ONE Administration Ondansetron HCl 4 mg 05/16/21 13:32 05/16/21 13:40 Ondansetron 4mg Odt SL 05/16/21 13:33 4 mg ONCE ONE Administration Medical Decision Narrative: Upon arrival patient is hemodynamically stable afebrile overall nontoxic-appearing. Differential diagnosis includes was not limited to osseous injury, strain, sprain, ACL injury, tibial plateau. Given this will obtain x-rays of her right lower extremity she does have tenderness directly over the tibial plateau. She is neurovascularly intact distal to the injury. X-rays were obtained interpreted dependently and overall unremarkable though she does have significant tibial plateau tenderness will obtain right lower extremity CT for evaluation of possible occult injury. CT scan unremarkable. Read for possible foreign body, but patient has no external signs of laceration or punctate lesion. Given negative CT scan patient was placed in a straight leg splint and discharged home with orthopedic followup. Advised tylenol ibuprofen for symptomatic relief General Adult HPI - General Chief complaint: Fall Stated complaint: fall Time Seen by Provider: 05/16/21 13:27 - History of Present Illness HPI narrative: Germania William is a 35-year-old female with past medical history of COPD who presents [facility] for evaluation after a fall. Patient states she was at work when she tripped and fell landed directly on her right knee she had immediate pain she has pain in the posterior aspect of her right knee without radiation numbness or weakness distal to the injury. She has not been able to ambulate on this knee since time of injury. She states that she has had a previous injury like this before and had an ACL repair. Denies any other symptoms at this time. Movement makes her pain worse rest makes her pain better. Onset (ago): hour(s) (1) Location: lower extremity Radiation: non-radiation, extremity Severity: mild Severity scale (1-10): 6 Quality: stabbing Consistency: constant Relieving factors: rest Exacerbating factors: none Associated symptoms: denies other symptoms Treatments prior to arrival: none - Related Data Home Medications Medication Instructions Recorded Confirmed estradioL [Estradiol] 2 mg PO DAILY 01/31/18 03/27/21 Albuterol Sulfate [Albuterol 2.5 mg IH BID PRN 03/13/21 03/27/21 0.083% 2.5mg/3mL neb] Albuterol Sulfate [Albuterol 8.5 gm IH Q6 PRN 03/13/21 03/27/21 Sulfate Hfa] Fluticasone Propionate [Flonase 2 spr NS DAILY 03/13/21 03/27/21 50mcg nasal spray 16gm] Loratadine [Clarit
--- NOTE | 2021-05-16 13:29 | XR_ITS ---
PROCEDURE: XR KNEE RT 3V CLINICAL INDICATION: fall Posttraumatic pain COMPARISON: No exams were available for comparison FINDINGS: No fracture or dislocation. No lytic or blastic change. There is normal mineralization. The joint spaces are well-preserved. No significant degenerative/arthritic changes. No erosive changes evident. Other findings:None. IMPRESSION: No acute findings. Dictated by: Jules Olmos MD 05/16/2021 14:32 Jules Olmos MD in [facility] 05/16/2021 14:32
--- NOTE | 2021-05-16 13:30 | XR_ITS ---
PROCEDURE: XR FEMUR RT 2V CLINICAL INDICATION: fall COMPARISON: CR FEMURLT XR femur LT 2V from 03/22/2018 FINDINGS: No fracture or dislocation. No lytic or blastic change. There is normal mineralization. The joint spaces are well-preserved. No significant degenerative/arthritic changes. No erosive changes evident. Other findings:None. IMPRESSION: No acute findings. Dictated by: Jules Olmos MD 05/16/2021 14:34 Jules Olmos MD in [facility] 05/16/2021 14:34
--- NOTE | 2021-05-16 13:30 | XR_ITS ---
PROCEDURE: XR TIBIA FIBULA RT 2V CLINICAL INDICATION: fall COMPARISON: No exams were available for comparison FINDINGS: No fracture or dislocation. No lytic or blastic change. There is normal mineralization. The joint spaces are well-preserved. No significant degenerative/arthritic changes. No erosive changes evident. Other findings:None. IMPRESSION: No acute findings. Dictated by: Jules Olmos MD 05/16/2021 14:34 Jules Olmos MD in [facility] 05/16/2021 14:34
--- NOTE | 2021-05-16 13:39 | PC.NURSE ---
Pt to rad.
--- NOTE | 2021-05-16 14:43 | CT_ITS ---
PROCEDURE: CT LOWER LEG RT WO CON CLINICAL HISTORY: concern for tibial plateau Injury with pain COMPARISON: CR XR KNEE RT 3V from 05/16/2021 TECHNIQUE: Axial images obtained with sagittal and coronal reformats. All CT scans at the facility use one or more dose reduction, viz: automated exposure control, ma/kV adjustment per patient size (including targeted exams where dose is matched to indication, i.e. head), or iterative reconstruction technique. FINDINGS: Axial images are obtained from the distal femur through the ankle. No fracture or dislocation. No evidence fat fluid level within the knee joint. There is a small knee joint effusion. A small hyperdensity is present in the subcutaneous tissues in the lateral aspect of the knee lateral to the patella and could be due to a foreign body. This measures approximately 1-2 mm. A 3 mm calcific density is present anterior to the midshaft of the tibia possibly due to a phleboliths or an area of soft tissue calcification. IMPRESSION: No acute fracture. Soft tissue calcification versus small foreign body in the lateral aspect of the knee just lateral to the patella and in the mid pretibial region Dictated by: Jules Olmos MD 05/16/2021 16:09 Jules Olmos MD in [facility] 05/16/2021 16:09
[2021-05-16 16:15] VITALS: BP 145/76; PULSE 96; RESP 18; TEMP 36.8; O2SAT 97
== END 2021-05-16 16:48 | disposition home or self-care (01) ==
PROVIDERS: Emergency Provider Emergency Medicine; PCP Nurse Practitioner Family
DX: M25.562 Pain in left knee (principal); W01.0XXA Fall on same level from slipping, tripping and stumbling without subsequent striking against object, initial encounter; Y92.69 Other specified industrial and construction area as the place of occurrence of the external cause; Y99.0 Civilian activity done for income or pay
CPT/HCPCS: 73552; 73562; 73590; 73700; 99283

== ENCOUNTER → 2021-06-20 09:43 | Outpatient (CLI) | payer OTHER, SELFPAY ==
--- NOTE | 2021-06-20 09:46 | MR_ITS ---
PROCEDURE: MR KNEE RT WO CON CLINICAL INDICATION: RIGHT KNEE PAIN Medial knee pain COMPARISON: CT CT LOWER LEG RT WO CON from 05/16/2021 CR XR KNEE RT 3V from 05/16/2021 TECHNIQUE: Routine multiplanar multi echo sequences are performed without gadolinium enhancement. FINDINGS: The cruciate ligaments appear intact. The collateral ligaments appear intact. The patellar tendon and quadriceps tendon have an unremarkable appearance. There is some subcutaneous edema noted along the anterior medial aspect of the patella with a small area of increased T2 signal within the patella at this region which could be due to small bone bruise. There is mild lateral subluxation of the patella. The medial patellofemoral ligament however appears intact. No definite meniscal tear. There is a small transverse area of increased signal within the anterior horn of the medial meniscus. This however does not meet the strict MRI criteria for meniscal tear. The patellar cartilage is well preserved. There is a small knee joint effusion. IMPRESSION: No evidence of internal derangement. Soft tissue edema noted along the anterior medial aspect of the patella which may be due to an area of contusion with a small area of increased T2 signal within the patella along its anterior medial margin which could be due to small bone bruise. There is mild lateral patellar subluxation. There is a small knee joint effusion. Dictated by: Jules Olmos MD 06/20/2021 16:20 Jules Olmos MD in [facility] 06/20/2021 16:20
== END ==
PROVIDERS: PCP Nurse Practitioner Family; Visit Provider Orthopaedic Surgery Adult Reconstructive Orthopaedic Surgery
DX: M25.561 Pain in right knee (principal)
CPT/HCPCS: 73721

== ENCOUNTER → 2021-07-06 10:15 | Outpatient (CLI) | payer OTHER, SELFPAY ==
[2021-07-06 10:53] LABS: Chloride 107 mmol/L (98-107); Potassium 4.1 mmoL/L (3.5-5.1); Sodium 142 mmol/L (136-145)
[2021-07-06 10:56] LABS: Blood Urea Nitrogen 7 mg/dl (7-17); Estimated Glomerular Filt Rate 114 ml/min (>60); GFR (African American) 138 ML/MIN (>60)
[2021-07-06 10:57] LABS: Anion Gap 10.1 mEq/L (5-15); Calcium 9.5 mg/dl (8.4-10.2); Carbon Dioxide 29 mmol/L (22.0-30.0); Glucose 101 mg/dl (74-100)
[2021-07-06 11:15] LABS: Basophils # 0.1 K/mm3 (0-0.2); Basophils % 0.7 % (0.1-2.0); Eosinophils # 0.2 K/mm3 (0.0-0.4); Eosinophils % 1.9 % (0.1-12.0); Hematocrit 42.1 % (37.0-47.0); Hemoglobin 14.1 g/dL (12.2-16.2); Lymphocytes # 3.8 K/mm3 (0.7-4.5); Lymphocytes % 45.5 % (10-50); Mean Corpuscular HGB Conc 33.5 g/dL (31.8-35.4); Mean Corpuscular Hemoglobin 30.4 pg (27.0-31.2); Mean Corpuscular Volume 90.9 fl (81-99); Mean Platelet Volume 8.4 fl (7.4-10.4); Monocytes # 0.3 K/mm3 (0.1-1.0); Monocytes % 3.9 % (1.7-9.3); Platelet Count 409 K/mm3 (142-424); Red Blood Count 4.63 M/mm3 (4.20-5.40); Red Cell Distribution Width 13.5 % (11.5-17.5); White Blood Count 8.3 K/mm3 (4.8-10.8)
== END ==
PROVIDERS: Visit Provider Internal Medicine Cardiovascular Disease
DX: Z01.812 Encounter for preprocedural laboratory examination (principal); Z11.52 Encounter for screening for COVID-19; R06.00 Dyspnea, unspecified; I20.9 Angina pectoris, unspecified; F17.200 Nicotine dependence, unspecified, uncomplicated
CPT/HCPCS: 36415; 80048; 85025; C9803; U0003; U0005

== ENCOUNTER 2021-07-07 08:53 | Day surgery (SDC) | payer OTHER, SELFPAY ==
[2021-07-07] VITALS (11 sets, daily range): BP systolic 98–155; BP diastolic 53–75; PULSE 53–74; RESP 18–20; O2SAT 92–100; BMI 25.8
--- NOTE | 2021-07-07 07:24 | IR_ITS ---
APPROVED REPORT Patient Location: Outpatient Costume Technician: AUDRA Lewis RT (R) PROCEDURES Selective coronary angiogram INDICATION Classic angina pectoris Informed consent was obtained prior to the procedure. COMPLICATIONS NONE Estimated Blood Loss: LESS THAN 10 ML TECHNIQUE One percent lidocaine used to anesthetize the right anterior aspect of the wrist. The right radial artery was accessed via the Seldinger technique. A 6 [place] sheath was placed in the right radial artery. 2.5 mg of verapamil, 800 mcg of nitroglycerin, 1mg Lidocaine and 5000 U Heparin were given through the arterial sheath. The trap catheter was also used to perform left heart catheterization, left ventriculogram and selective coronary angiogram. At the end of the procedure the sheath was removed good hemostasis was achieved using Traclet band, patient was transferred to the postop holding area in stable condition. ANGIOGRAPHIC RESULTS The left main artery Normal The left anterior descending artery Normal The circumflex artery Dominant normal The right coronary artery Normal The ACOSTA ventriculogram reveals Not performed The left ventricular end-diastolic pressure Not measured IMPRESSION Normal coronary arteries PLAN 1. Evaluation of noncardiac symptoms Electronically signed by : Kehinde Rae MD 07/07/2021 11:29:21
== END 2021-07-07 14:08 | disposition home or self-care (01) ==
LOC: CATHLAB 08:54
PROVIDERS: PCP Nurse Practitioner Family; Visit Provider Internal Medicine
DX: I25.118 Atherosclerotic heart disease of native coronary artery with other forms of angina pectoris (principal); F17.210 Nicotine dependence, cigarettes, uncomplicated; Z79.899 Other long term (current) drug therapy; J44.9 Chronic obstructive pulmonary disease, unspecified
CPT/HCPCS: 93458; 99152; C1725; C1769; J1644; Q9967

== ENCOUNTER → 2021-08-11 10:13 | Outpatient (CLI) | payer OTHER, SELFPAY ==
[2021-08-11 11:05] VITALS: PULSE 86; PULSE 88
== END ==
PROVIDERS: PCP Family Medicine; Visit Provider Family Medicine
DX: J44.9 Chronic obstructive pulmonary disease, unspecified (principal)
CPT/HCPCS: 94060; 94618; 94640; 94727; 94729

== ENCOUNTER → 2021-08-16 11:35 | Outpatient (CLI) | payer OTHER, SELFPAY | PROVIDERS: Visit Provider Nurse Practitioner Family | DX: Z20.822 Contact with and (suspected) exposure to COVID-19 (principal); R05.9 Cough, unspecified; J02.9 Acute pharyngitis, unspecified | CPT/HCPCS: C9803; U0003; U0005 ==

== ENCOUNTER → 2021-08-28 10:01 | Outpatient (CLI) | payer OTHER, SELFPAY ==
--- NOTE | 2021-08-28 10:04 | CA_ITS ---
APPROVED REPORT Bilateral Lower Extremity Venous Study for DVT. Ice Guard Skating Rink: SUNIL Indications S/p right ACL tear awaiting surgery, intermittent swelling and pain in right leg Vein Imaging CFV (R): compressive, spontaneous, phasic, augmentation SFJ (R): compressive, spontaneous, phasic, augmentation FEM (R): compressive, spontaneous, phasic, augmentation POP (R): compressive, spontaneous, phasic, augmentation PTV (R): compressive, spontaneous, phasic, augmentation GSV (R): compressive, spontaneous, phasic, augmentation SSV (R): compressive, spontaneous, phasic, augmentation Peroneals (R):compressive, spontaneous, phasic, augmentation GAS (R): compressive, spontaneous, phasic, augmentation Findings Color flow duplex demonstrates no evidence of DVT of the following right lower extremity Veins:Common Femoral Vein, Femoral Vein, Popliteal Vein, Posterior Tibial Veins, Peroneal Veins. Negative for DVT. Conclusion Negative for DVT. Electronically signed by : Jules Olmos MD 08/28/2021 17:29:13
== END ==
PROVIDERS: PCP Family Medicine; Visit Provider Orthopaedic Surgery Adult Reconstructive Orthopaedic Surgery
DX: M79.661 Pain in right lower leg (principal); R60.0 Localized edema
CPT/HCPCS: 93971

== ENCOUNTER → 2021-08-29 13:59 | Outpatient (CLI) | payer OTHER, SELFPAY ==
--- NOTE | 2021-08-29 14:01 | MM_ITS ---
PROCEDURE INFORMATION: Exam: US Left Breast, Complete US Right Breast, Complete MG Bilateral Diagnostic Breast Tomosynthesis Exam date and time: 08/29/2021 2:01 PM Age: 36 years old Clinical indication: 6 month follow up TECHNIQUE: Imaging protocol: Complete ultrasound of all four quadrants of the Left breast and the retroareolar regions, including ultrasound of the axilla when performed. Complete ultrasound of all four quadrants of the Right breast and the retroareolar regions, including ultrasound of the axilla when performed. Bilateral Diagnostic tomosynthesis and 2D mammography including computer-aided detection (CAD) when performed. Unilateral or bilateral exam. COMPARISON: Mammogram and ultrasound dated 01/01/2021. FINDINGS: MAMMOGRAPHY: The breast tissue is heterogeneously dense, which may obscure small masses. There is no stellate mass, architectural distortion or suspicious microcalcifications in either breast to suggest malignancy. Stable approximate 1.6 cm retroareolar. No skin thickening or axillary adenopathy. ULTRASOUND: Sonographic images of both breasts including the retroareolar regions, all 4 quadrants and the axilla do not demonstrate any cystic masses. Stable hypoechoic ovoid well-circumscribed solid mass in the left retroareolar region measuring 1.5 1.6 x 0.7 cm in dimension. No architectural distortion or acoustical shadowing. No skin thickening or axillary adenopathy. IMPRESSION: Stable left retroareolar breast mass compared to prior examination dated 01/01/2021. A six-month follow-up targeted left breast ultrasound is recommended for continued close surveillance unless otherwise clinically indicated. ASSESSMENT: BI-RADS Category 3: Probably benign
== END ==
PROVIDERS: PCP Family Medicine; Visit Provider Nurse Practitioner Family
DX: R92.2 Inconclusive mammogram (principal)
CPT/HCPCS: 76641; 77062; 77066; G0279

== ENCOUNTER → 2021-09-12 15:58 | Outpatient (CLI) | payer OTHER, SELFPAY ==
[2021-09-12 16:04] LABS: Adenovirus,PCR Not Detected (NotDetected); Bordetella Pertussis Not Detected (NotDetected); Chlamydophila Pneumoniae, PCR Not Detected (NotDetected); Coronavirus 19, PCR Not Detected (NotDetected); Coronavirus 229E Not Detected (NotDetected); Coronavirus NL63 Not Detected (NotDetected); Coronavirus OC43 Not Detected (NotDetected); Coronovirus HKU1,PCR Not Detected (NotDetected); Human Metapneumovirus Not Detected (NotDetected); Influenza A, PCR Not Detected (NotDetected); Influenza AH1, 2009 Not Detected (NotDetected); Influenza AH1, PCR Not Detected (NotDetected); Influenza AH3,PCR Not Detected (NotDetected); Influenza B, PCR Not Detected (NotDetected); Microscopic, Urine URINE MICROSCOPIC (MICROSCOPIC); Mycoplasma Pneumoniae, PCR Not Detected (NotDetected); Parainfluenza 1, PCR Not Detected (NotDetected); Parainfluenza 2, PCR Not Detected (NotDetected); Parainfluenza 3, PCR Not Detected (NotDetected); Parainfluenza 4, PCR Not Detected (NotDetected); Respiratory Syncytial Virus Not Detected (NotDetected); Rhinovirus/Enterovirus Not Detected (NotDetected)
--- NOTE | 2021-09-12 16:17 | XR_ITS ---
PROCEDURE: XR CHEST 2V CLINICAL HISTORY: COPD,EMPHYSEMA, AND ASTHMA, PREOPERATIVE COMPARISON: CR CXR2V XR chest 2V from 12/23/2017 CR XR CHEST 2V from 07/30/2020 CR XR CHEST PORTABLE from 03/12/[address] ANGIO CHEST from 03/13/2021 FINDINGS: The cardiomediastinal silhouette and pulmonary vascularity are within normal limits. The lungs are clear without infiltrates, suspicious nodules, or pleural effusions. No acute bony abnormalities. IMPRESSION: No acute findings. Dictated by: Jules Olmos MD 09/12/2021 18:23 Jules Olmos MD in [facility] 09/12/2021 18:23
[2021-09-12 16:26] LABS: Basophils # 0.1 K/mm3 (0-0.2); Basophils % 1.3 % (0.1-2.0); Eosinophils # 0.2 K/mm3 (0.0-0.4); Eosinophils % 1.9 % (0.1-12.0); Hematocrit 41.5 % (37.0-47.0); Hemoglobin 14.4 g/dL (12.2-16.2); Lymphocytes # 4.5 K/mm3 (0.7-4.5); Lymphocytes % 48.6 % (10-50); Mean Corpuscular HGB Conc 34.6 g/dL (31.8-35.4); Mean Corpuscular Hemoglobin 30.2 pg (27.0-31.2); Mean Corpuscular Volume 87.3 fl (81-99); Mean Platelet Volume 8.1 fl (7.4-10.4); Monocytes # 0.3 K/mm3 (0.1-1.0); Monocytes % 3.3 % (1.7-9.3); Neutrophils # 4.1 K/mm3 (1.8-7.8); Platelet Count 440 K/mm3 (142-424); Red Blood Count 4.75 M/mm3 (4.20-5.40); Red Cell Distribution Width 14.5 % (11.5-17.5); White Blood Count 9.2 K/mm3 (4.8-10.8)
--- NOTE | 2021-09-12 16:38 | ECG_ITS ---
APPROVED REPORT Exam: Resting ECG HR:65 bpm ECG Measurements Heart Rate 65 AXES MA 168 P 66 QRSd 96 QRS 56 QT 436 T 47 QTc 453 Conclusion Normal sinus rhythm Possible Left atrial enlargement Incomplete right bundle branch block Borderline ECG Electronically signed by : Lee Sood MD 09/13/2021 06:12:43
[2021-09-12 16:56] LABS: Appearance,Urine SL CLOUDY (Clear); Bilirubin,Urine Negative (Negative); Blood, Urine Negative (Negative); Color,Urine YELLOW (Yellow); Glucose,Urine (UA) Negative (Negative); Ketones,Urine Negative (Negative); Leukocyte Esterase,Urine Negative (Negative); Nitrate,Urine Negative (Negative); Protein,Urine Negative (Negative); Specific Gravity, Urine 1.015 (1.005-1.030); Urobilinogen,Urine 0.2 EU/dl (0.2)
[2021-09-12 17:06] LABS: Amphetamine/Metha Screen,Urine Negative ng/ml (<1000); Barbiturates Screen,Urine Negative ng/ml (<200)
[2021-09-12 17:07] LABS: Benzodiazepines Screen,Urine Negative ng/ml (<200)
[2021-09-12 17:08] LABS: Chloride 105 mmol/L (98-107); Cocaine Screen,Urine Negative ng/ml (<300); Methadone Screen,Urine Negative ng/ml (<300); Potassium 4.2 mmoL/L (3.5-5.1); Sodium 140 mmol/L (136-145)
[2021-09-12 17:09] LABS: Cannabinoid Screen,Urine Positive ng/ml (<50)
[2021-09-12 17:10] LABS: Opiate Screen,Urine Negative ng/ml (<300); Phencyclidine Screen,Urine Negative ng/ml (<25)
[2021-09-12 17:11] LABS: Anion Gap 14.2 mEq/L (5-15); Blood Urea Nitrogen 7 mg/dl (7-17); Calcium 9.3 mg/dl (8.4-10.2); Carbon Dioxide 25 mmol/L (22.0-30.0); Estimated Glomerular Filt Rate 114 ml/min (>60); GFR (African American) 138 ML/MIN (>60); Glucose 84 mg/dl (74-100)
[2021-09-12 17:33] LABS: Bacteria,Urine 3+ /lpf
== END ==
PROVIDERS: Visit Provider Orthopaedic Surgery Adult Reconstructive Orthopaedic Surgery
DX: M25.562 Pain in left knee (principal); Z01.818 Encounter for other preprocedural examination; Z11.52 Encounter for screening for COVID-19
CPT/HCPCS: 36415; 71046; 80048; 80305; 81001; 85025; 87086; 87581; 87632; 87798; 93005; C9803; U0003; U0005

== ENCOUNTER → 2021-09-29 16:54 | Outpatient (CLI) | payer OTHER, SELFPAY ==
[2021-09-29 16:58] LABS: Microscopic, Urine URINE MICROSCOPIC (MICROSCOPIC)
[2021-09-29 17:17] LABS: Basophils # 0.2 K/mm3 (0-0.2); Basophils % 1.8 % (0.1-2.0); Eosinophils # 0.1 K/mm3 (0.0-0.4); Eosinophils % 0.9 % (0.1-12.0); Hematocrit 44.9 % (37.0-47.0); Hemoglobin 14.8 g/dL (12.2-16.2); Lymphocytes # 4.7 K/mm3 (0.7-4.5); Lymphocytes % 43.1 % (10-50); Mean Corpuscular HGB Conc 32.9 g/dL (31.8-35.4); Mean Corpuscular Hemoglobin 30.2 pg (27.0-31.2); Mean Corpuscular Volume 91.9 fl (81-99); Mean Platelet Volume 8.6 fl (7.4-10.4); Monocytes # 0.4 K/mm3 (0.1-1.0); Monocytes % 4.1 % (1.7-9.3); Neutrophils # 5.5 K/mm3 (1.8-7.8); Neutrophils % 50.1 % (37.0-80.0); Platelet Count 402 K/mm3 (142-424); Red Blood Count 4.89 M/mm3 (4.20-5.40); Red Cell Distribution Width 14.3 % (11.5-17.5); White Blood Count 10.9 K/mm3 (4.8-10.8)
[2021-09-29 18:51] LABS: Anion Gap 10.1 mEq/L (5-15); Blood Urea Nitrogen 6 mg/dl (7-17); Calcium 9.7 mg/dl (8.4-10.2); Carbon Dioxide 29 mmol/L (22.0-30.0); Chloride 104 mmol/L (98-107); Estimated Glomerular Filt Rate 114 ml/min (>60); GFR (African American) 138 ML/MIN (>60); Glucose 87 mg/dl (74-100); Potassium 4.1 mmoL/L (3.5-5.1); Sodium 139 mmol/L (136-145)
[2021-09-29 21:38] LABS: Appearance,Urine CLOUDY (Clear); Bilirubin,Urine Negative (Negative); Blood, Urine Negative (Negative); Color,Urine DK YELLOW (Yellow); Glucose,Urine (UA) Negative (Negative); Ketones,Urine Negative (Negative); Leukocyte Esterase,Urine Negative (Negative); Nitrate,Urine Negative (Negative); PH,Urine 6.5 (5.0-8.5); Protein,Urine Negative (Negative); Urobilinogen,Urine 0.2 EU/dl (0.2)
[2021-09-29 21:45] LABS: Bacteria,Urine 4+ /lpf
[2021-09-29 21:49] LABS: Amphetamine/Metha Screen,Urine Negative ng/ml (<1000); Benzodiazepines Screen,Urine Negative ng/ml (<200)
[2021-09-29 21:50] LABS: Barbiturates Screen,Urine Negative ng/ml (<200)
[2021-09-29 21:51] LABS: Cannabinoid Screen,Urine Positive ng/ml (<50); Cocaine Screen,Urine Negative ng/ml (<300)
[2021-09-29 21:52] LABS: Methadone Screen,Urine Negative ng/ml (<300)
[2021-09-29 21:53] LABS: Opiate Screen,Urine Negative ng/ml (<300); Phencyclidine Screen,Urine Negative ng/ml (<25)
== END ==
PROVIDERS: Visit Provider Orthopaedic Surgery Adult Reconstructive Orthopaedic Surgery
DX: Z01.812 Encounter for preprocedural laboratory examination (principal); Z11.52 Encounter for screening for COVID-19; M25.561 Pain in right knee
CPT/HCPCS: 36415; 80048; 80305; 81001; 85025; 87086; C9803; U0003; U0005

== ENCOUNTER 2021-11-12 13:00 | Outpatient (RCR) | payer OTHER, SELFPAY | END 2021-11-12 13:05 | disposition home or self-care (01) | LOC: PT 13:00 | PROVIDERS: Visit Provider Orthopaedic Surgery Adult Reconstructive Orthopaedic Surgery | DX: M25.561 Pain in right knee (principal); S83.241D Other tear of medial meniscus, current injury, right knee, subsequent encounter | CPT/HCPCS: 97010; 97014; 97110; 97140; 97163; G0283 ==

== ENCOUNTER 2022-02-23 11:54 | Emergency (ER) | payer OTHER, SELFPAY ==
[2022-02-23 11:54] VITALS: BP 133/83; PULSE 79; RESP 18; TEMP 36.7; O2SAT 99; BMI 25.7
--- NOTE | 2022-02-23 12:15 | XR_ITS ---
PROCEDURE INFORMATION: Exam: XR Chest Exam date and time: 02/23/2022 12:25 PM Age: 36 years old Clinical indication: Shortness of breath; Additional info: Chest heaviness, SOB, possible panic attack TECHNIQUE: Imaging protocol: XR of the chest. Views: 2 views. COMPARISON: CR XR CHEST 2V 09/12/2021 4:20 PM FINDINGS: Lungs: Unremarkable. No consolidation. Pleural spaces: Unremarkable. No pleural effusion. No pneumothorax. Heart/Mediastinum: Unremarkable. No cardiomegaly. Bones/joints: Unremarkable. IMPRESSION: No acute findings.
[2022-02-23 12:22] LABS: Basophils # 0.3 K/mm3 (0-0.2); Basophils % 2.7 % (0.1-2.0); Eosinophils # 0.2 K/mm3 (0.0-0.4); Eosinophils % 1.7 % (0.1-12.0); Hematocrit 40.5 % (37.0-47.0); Hemoglobin 13.4 g/dL (12.2-16.2); Lymphocytes # 4.3 K/mm3 (0.7-4.5); Lymphocytes % 46.2 % (10-50); Mean Corpuscular HGB Conc 33.1 g/dL (31.8-35.4); Mean Corpuscular Hemoglobin 30.4 pg (27.0-31.2); Mean Corpuscular Volume 91.8 fl (81-99); Mean Platelet Volume 8.3 fl (7.4-10.4); Monocytes # 0.5 K/mm3 (0.1-1.0); Monocytes % 4.9 % (1.7-9.3); Neutrophils # 4.1 K/mm3 (1.8-7.8); Neutrophils % 44.4 % (37.0-80.0); Platelet Count 518 K/mm3 (142-424); Red Blood Count 4.41 M/mm3 (4.20-5.40); Red Cell Distribution Width 13.8 % (11.5-17.5); White Blood Count 9.3 K/mm3 (4.8-10.8)
[2022-02-23 12:29] LABS: Anion Gap 9.7 mEq/L (5-15); Blood Urea Nitrogen 10 mg/dl (7-17); Calcium 8.7 mg/dl (8.4-10.2); Carbon Dioxide 26 mmol/L (22.0-30.0); Chloride 107 mmol/L (98-107); Creatinine Clearance Estimated 165 mL/min (50-200); Estimated Glomerular Filt Rate 141 ml/min (>60); GFR (African American) 171 ML/MIN (>60); Glucose 87 mg/dl (74-100); Potassium 3.7 mmoL/L (3.5-5.1); Sodium 139 mmol/L (136-145)
[2022-02-23 12:30] VITALS: BP 129/78; PULSE 75; RESP 16; O2SAT 99
--- NOTE | 2022-02-23 12:36 | HMH.EDGENADL ---
ED Disposition Clinical Impression: Panic attack Disposition: Home, Self-Care Condition on Discharge: Good Referrals: Provider,Referral, [Primary Care Provider] - - Critical Care Critical Care Time: No Attestation: On 02/23/22, the high probability of a clinically significant, sudden or life threatening deterioration of the following system(s) required my full and direct attention, intervention and personal management. The time I documented below is in addition to time spent performing reported procedures but includes the following listed in this critical care notation. Medical Decision Making - Medical Records Medical records reviewed: Yes: I reviewed the patient's medical records. - Gian Inquiry Pt receiving controlled substance: No Vital Signs: 02/23/22 11:54 02/23/22 12:30 02/23/22 13:00 Temperature 98.1 F Temperature Source Oral Pulse Rate 75 72 Pulse Rate [Right Radial] 79 Respiratory Rate 18 16 17 Blood Pressure 129/78 124/86 Blood Pressure [Right Arm] 133/83 Blood Pressure Mean 104 102 Blood Pressure Mean [Right Arm] 99 Blood Pressure Source [Right Arm] Automatic Cuff Blood Pressure Position [Right Arm] Sitting 02 Sat by Pulse Oximetry 99 99 99 Oxygen Delivery Method Room Air 02/23/22 13:12 02/23/22 14:28 Temperature Temperature Source Pulse Rate 79 79 Pulse Rate [Right Radial] Respiratory Rate 16 16 Blood Pressure 140/87 116/82 Blood Pressure [Right Arm] Blood Pressure Mean 104 88 Blood Pressure Mean [Right Arm] Blood Pressure Source [Right Arm] Blood Pressure Position [Right Arm] 02 Sat by Pulse Oximetry 99 100 Oxygen Delivery Method - Lab Data Lab results reviewed: Yes: I reviewed the patient's lab results. Lab Results 02/23/22 11:55: WBC 9.3, RBC 4.41, Hgb 13.4, Hct 40.5, MCV 91.8, MCH 30.4, MCHC 33.1, RDW 13.8, Plt Count 518 H, MPV 8.3, Neut % (Auto) 44.4, Lymph % (Auto) 46.2, Laporte % (Auto) 4.9, Eos % (Auto) 1.7, Baso % (Auto) 2.7 H, Neut # (Auto) 4.1, Lymph # (Auto) 4.3, Laporte # (Auto) 0.5, Eos # (Auto) 0.2, Baso # (Auto) 0.3 H 02/23/22 11:55: Sodium 139, Potassium 3.7, Chloride 107, Carbon Dioxide 26, Anion Gap 9.7, BUN 10, Creatinine 0.50 L, Estimated Creat Clear 165, Estimated GFR 141, Est GFR ( Amer) 171, Glucose 87, Calcium 8.7, Troponin I < 0.01 02/23/22 11:55: D-Dimer 0.62 H Result diagrams: 02/23/22 11:55 02/23/22 11:55 Orders (Tests/Meds): ED MEDICATIONS Generic Name Dose Route Start Last Admin Trade Name Freq PRN Reason Stop Dose Admin Ketorolac Tromethamine 15 mg 02/23/22 13:30 02/23/22 13:41 Ketorolac 30mg/Ml Vial IV 02/28/22 13:29 15 mg Q6H ALINE Administration Nicotine 21 mg 02/23/22 14:30 Nicotine 21mg/24hr Patch TD 03/25/22 14:29 DAILY ALINE Sodium Chloride 10 ml 02/23/22 12:15 Sodium Chloride 0.9% 10ml Flush Syringe IV 03/25/22 12:14 NEEDED PRN Maintain IV Site Sodium Chloride 10 ml 02/23/22 13:28 Sodium Chloride 0.9% 10ml Vial IV 03/25/22 13:27 NEEDED PRN to Dilute Lorazepam inj Discontinued Medications Generic Name Dose Route Start Last Admin Trade Name Freq PRN Reason Stop Dose Admin Aspirin 324 mg 02/23/22 12:29 02/23/22 12:29 Aspirin 81mg Chewable Tablet PO 02/23/22 12:30 324 mg ONCE ONE Administration Lorazepam 2 mg 02/23/22 13:28 02/23/22 13:41 Lorazepam 2mg/Ml Vial IV 02/23/22 13:29 2 mg ONCE ONE Administration Nicotine 21 mg 02/23/22 14:30 Nicotine 21mg/24hr Patch TD 02/23/22 14:31 ONCE ONE ORDERS Category Date Time Status Troponin I Q3H Lab 02/23/22 15:30 Ordered Troponin I Q3H Lab 02/23/22 18:30 Ordered CA venous doppler UE LT Stat Y 02/23/22 14:05 Ordered Medical Decision Narrative: Marek is a 36-year-old female with a history of COPD presenting with a chief complaint of left upper extremity pain and swelling. Differential diagnosis includes, but is not limited to, inse
[2022-02-23 12:59] LABS: Troponin I < 0.01 ng/ml (0.00-0.034)
[2022-02-23 13:00] VITALS: BP 124/86; PULSE 72; RESP 17; O2SAT 99
[2022-02-23 13:12] VITALS: BP 140/87; PULSE 79; RESP 16; O2SAT 99
[2022-02-23 13:44] LABS: D-Dimer 0.62 ug/mL (0.0-0.5)
--- NOTE | 2022-02-23 14:22 | PC.NURSE ---
RT called states she has spoken with vascular surgeon director of laboratory operations, states it will approx 2 hours until they will be here. Updated pt on this. Pt is requesting to go smoke, reported to pt we are a non-smoking facility and I am not allowed to let her go outside while being an ER Pt. Offered pt a nicotine patch, pt is agreeance to nicotine patch. contacted pharmacy for nicotine patch. Pt also requesting to eat, will ask ER MD about feeding pt.
[2022-02-23 14:28] VITALS: BP 116/82; PULSE 79; RESP 16; O2SAT 100
--- NOTE | 2022-02-23 14:30 | PC.NURSE ---
Notified PATRICE MAGALLON that is will be approx 2 hours before vascular lab staff can be here and that pt is wanting to eat. PATRICE MAGALLON states pt is okay to eat, reports that we could ask pt if she would like to come back tomorrow to have doppler down as an outpt instead of waiting 2 hours. Pt reports she would rather come back tomorrow for doppler. Reports she does not want nicotine patch if she will be leaving soon. Notified PATRICE MAGALLON does not want to stay for doppler today. contacted RT spoke with Zoraida, states she will contact tech chief information security officer for vascular. [phone] zoraida states she has spoke with chief information security officer cardiovascular lab director states for pt to come in at 0730 in the morning and bring her out pt order with her. Notified PATRICE MAGALLON
[2022-02-23 17:22] VITALS: BP 122/74; PULSE 65; RESP 16; TEMP 36.6; O2SAT 98
== END 2022-02-23 17:23 | disposition home or self-care (01) ==
PROVIDERS: Emergency Provider Emergency Medicine
DX: R07.9 Chest pain, unspecified (principal); M79.622 Pain in left upper arm; M79.89 Other specified soft tissue disorders; R20.2 Paresthesia of skin; K21.9 Gastro-esophageal reflux disease without esophagitis; G40.909 Epilepsy, unspecified, not intractable, without status epilepticus; J44.9 Chronic obstructive pulmonary disease, unspecified; F32.A Depression, unspecified; F41.9 Anxiety disorder, unspecified; F17.210 Nicotine dependence, cigarettes, uncomplicated; Z79.899 Other long term (current) drug therapy; Z88.5 Allergy status to narcotic agent; Z88.8 Allergy status to other drugs, medicaments and biological substances; Z86.14 Personal history of Methicillin resistant Staphylococcus aureus infection
CPT/HCPCS: 71046; 80048; 84484; 85025; 85378; 96374; 99285

== ENCOUNTER → 2022-02-24 07:21 | Outpatient (CLI) | payer OTHER, SELFPAY ==
--- NOTE | 2022-02-24 | CA_ITS ---
FINAL REPORT TECHNIQUE: Sonographic images of the veins of the left upper extremity were obtained from axilla to antecubital fossa. Additionally, images of the internal jugular vein and subclavian vein were also obtained. CLINICAL HISTORY: left acute arm swelling. Patient denies trauma but states she was bitten by a rabbit on left wrist 2 days ago. She says her left arm had edema and red streaks 1 day after the bite occurred. FINDINGS: The veins of the left upper extremity are compressible from axilla to antecubital fossa. Blood flow is demonstrated by both color and spectral Doppler as well. The internal jugular vein and subclavian vein are also patent. IMPRESSION: No evidence of venous thrombosis of the upper extremity. Reviewed, Interpreted and Dictated by King Garcia III, MD Transcribed by Tommie Gerber Authenticated by King Garcia III, MD on 02/24/2022 09:32:50 AM [facility]
== END ==
PROVIDERS: PCP Family Medicine; Visit Provider Emergency Medicine
DX: M79.602 Pain in left arm (principal); M79.89 Other specified soft tissue disorders
CPT/HCPCS: 93971

== ENCOUNTER → 2022-03-02 12:24 | Outpatient (CLI) | payer OTHER, SELFPAY | PROVIDERS: PCP Family Medicine; Visit Provider Obstetrics & Gynecology | DX: N63.20 Unspecified lump in the left breast, unspecified quadrant (principal); Z80.3 Family history of malignant neoplasm of breast; Z85.43 Personal history of malignant neoplasm of ovary | CPT/HCPCS: 36415 ==

== ENCOUNTER → 2022-03-17 13:44 | Outpatient (CLI) | payer OTHER, SELFPAY ==
--- NOTE | 2022-03-17 13:44 | US_ITS ---
PROCEDURE INFORMATION: Exam: US Left Breast, Complete Exam date and time: 03/17/2022 1:52 PM Age: 36 years old Clinical indication: Additional info: 6 month follow up of a left breast mass TECHNIQUE: Imaging protocol: Complete ultrasound of all four quadrants of the Left breast and the retroareolar regions, including ultrasound of the axilla when performed. COMPARISON: US BREAST LT COMPLETE 08/29/2021 2:34 PM FINDINGS: Breast: Sonographic images of the left breast including the retroareolar region, all 4 quadrants and the axilla demonstrates a stable hypoechoic well-circumscribed solid mass in the retroareolar region measuring 1.4 x 0.6 x 1.6 cm in dimension. No architectural distortion or acoustical shadowing. No skin thickening or axillary adenopathy. IMPRESSION: Stable solid mass in the left retroareolar region compared to prior sonograms dating back to and including 01/01/2021. A six-month follow-up targeted left breast ultrasound is recommended for continued close surveillance ASSESSMENT: BI-RADS Category 3: Probably benign
== END ==
PROVIDERS: PCP Family Medicine; Visit Provider Surgery
DX: N63.20 Unspecified lump in the left breast, unspecified quadrant (principal)
CPT/HCPCS: 76641

== ENCOUNTER → 2022-04-03 10:24 | Outpatient (CLI) | payer OTHER, SELFPAY ==
--- NOTE | 2022-04-03 10:30 | MR_ITS ---
FINAL REPORT CLINICAL HISTORY: RIGHT KNEE INJURY. prior knee surgery oct 01. entire knee pain with swelling. knee instability. COMPARISON: June 20, 2021 FINDINGS: Multiplanar MR imaging of the knee was performed without contrast. There has been interval postoperative change of the medial meniscus without convincing tear. The lateral meniscus is intact. The anterior and posterior cruciate ligaments are intact. The medial collateral ligament and lateral ligamentous complex are intact. The patellar and quadriceps tendons are intact. There is no evidence of fracture. No focal abnormality is identified of the articular cartilage. A moderate joint effusion is seen. There is 12 mm of lateral patellar subluxation. There is a partial tear of the medial patellofemoral ligament. The musculature is intact. No soft tissue mass or cyst is identified. IMPRESSION: Lateral patellar subluxation with partial tear of the medial patellofemoral ligament. Moderate joint effusion. Interval postoperative change of the medial meniscus without convincing tear. Reviewed, Interpreted and Dictated by King Garcia III, MD Transcribed by Tommie Gerber Authenticated and [facility]
== END ==
PROVIDERS: PCP Family Medicine; Visit Provider Orthopaedic Surgery Adult Reconstructive Orthopaedic Surgery
DX: M25.561 Pain in right knee (principal)
CPT/HCPCS: 73721

== ENCOUNTER → 2022-06-04 06:37 | Outpatient (CLI) | payer OTHER, SELFPAY ==
[2022-06-04 17:57] LABS: Adenovirus,PCR Not Detected (NotDetected); Bordetella Pertussis Not Detected (NotDetected); Chlamydophila Pneumoniae, PCR Not Detected (NotDetected); Coronavirus 19, PCR Not Detected (NotDetected); Coronavirus 229E Not Detected (NotDetected); Coronavirus NL63 Not Detected (NotDetected); Coronavirus OC43 Not Detected (NotDetected); Coronovirus HKU1,PCR Not Detected (NotDetected); Human Metapneumovirus Not Detected (NotDetected); Influenza A, PCR Not Detected (NotDetected); Influenza AH1, 2009 Not Detected (NotDetected); Influenza AH1, PCR Not Detected (NotDetected); Influenza AH3,PCR Not Detected (NotDetected); Influenza B, PCR Not Detected (NotDetected); Mycoplasma Pneumoniae, PCR Not Detected (NotDetected); Parainfluenza 1, PCR Not Detected (NotDetected); Parainfluenza 2, PCR Not Detected (NotDetected); Parainfluenza 3, PCR Not Detected (NotDetected); Parainfluenza 4, PCR Not Detected (NotDetected); Respiratory Syncytial Virus Not Detected (NotDetected); Rhinovirus/Enterovirus Not Detected (NotDetected)
== END ==
PROVIDERS: PCP Family Medicine; Visit Provider Family Medicine
DX: Z20.822 Contact with and (suspected) exposure to COVID-19 (principal)
CPT/HCPCS: 87581; 87632; 87798; C9803; U0003; U0005

== ENCOUNTER → 2022-08-13 08:56 | Outpatient (CLI) | payer OTHER, SELFPAY ==
--- NOTE | 2022-08-13 09:00 | XR_ITS ---
FINAL REPORT CLINICAL HISTORY: knee pain COMPARISON: 05/16/2021 FINDINGS: RIGHT KNEE 3 views of the right knee were obtained. There is no acute fracture or dislocation. Visualized joint spaces are normally aligned. Joint spaces are intact. Soft tissues are unremarkable. IMPRESSION: No acute bony abnormality. Reviewed, Interpreted and Dictated by Kelton Silva MD Transcribed by Vanessa Esipnoza Authenticated and [facility]
== END ==
PROVIDERS: PCP Family Medicine; Visit Provider Orthopaedic Surgery
DX: M25.561 Pain in right knee (principal)
CPT/HCPCS: 73562

== ENCOUNTER → 2022-08-13 09:25 | Outpatient (POV) | payer OTHER, SELFPAY ==
[2022-08-13 10:18] VITALS: BP 117/66; PULSE 78; RESP 18; O2SAT 98; BMI 23.0
--- NOTE | 2022-08-13 10:33 | EXP.PAIN.OV ---
HPI Data of Consult Patient: new to practice Consult date: 08/13/22 Requesting Physician: Kristina Jo APRN Primary Care Provider: Jitendra Hartley MD Consult Narrative Reason for consult: Right knee pain History of present illness: Ms. William is a 37 year old female who presents today as a new patient. She is a referral from Jose Cruz To's office. Today she rates her pain a 9 out of 10. She states the pain is all in her right knee related to a fall in May of last year. Patient states she did have a meniscus tear from this injury and did have surgery in September. She states she has even had cortisone injections however these made it worse. Patient states she has not had any improvement since. Patient describes this as a throbbing, burning, stabbing sensation that radiates down her leg. Patient states this is worse with any increased activity or range of motion. Patient has had physical therapy however this worsened her symptoms. Patient has used [id number]-[id number] Tylenol and ibuprofen with minimal improvement of her symptoms. Patient has also tried heat and ice and topical creams such as Voltaren with minimal improvement. Patient has been to see a orthopedic physician that she states did not recommend additional surgery because he was worried it would worsen her symptoms. Patient is scheduled to see Dr. Caio Jo following her visit this morning. Patient is currently managed with Howells [address] Hartley's office. Patient denies any side effects from this medication. She states this medication does help improve some of her pain symptoms. Patient states she does continue to do at home exercising and stretches however it is limited due to her worsening pain symptoms. Her Gian is [phone]. It has been reviewed and appropriate. CC: Kristina Jo APRN [facility] Medical History Dyspnea Gastroesophageal reflux disease Syncope Tobacco dependence syndrome Social History (Updated 08/13/22 @ 10:24 by Camille Carvajal RN) Smoking Status: Current every day smoker tobacco type: cigarettes packs per day: 3 second hand exposure: No alcohol intake: current substance use type: marijuana current occupational status: other Travel in the last 8 weeks: None household members: significant other housing: house current occupational exposures/hazards: No Review of Systems Review of Systems Review of systems:: pertinent systems reviewed and negative unless documented below Review of systems (narrative): Review of Systems: General: No recent weight changes, no fever, no sleep disturbances Respiratory: No cough, no shortness of air, no recurring pulmonary infections Cardiovascular/peripheral vascular: No chest pain, no palpitations, no edema, no shortness of breath Gastrointestinal: No new onset incontinence, normal bowel movements reported Genitourinary: No new onset incontinence Musculoskeletal: Right knee pain Psychiatric: [Normal mood/affect] Neurological: [Denies weakness in extremities], [denies balance issues] Meds Home Medications and Allergies Home Medications Medication Instructions Recorded Confirmed Type albuterol sulfate 90 mcg/actuation 2 puff inhalation Q6 PRN Shortness 08/19/21 08/13/22 Rx aerosol inhaler Of Breath Or Wheezing #8.5 grams citalopram 20 mg tablet 40 mg PO DAILY Depression #90 tabs 12/26/21 08/13/22 Rx fluticasone propionate 50 2 spray intranasal DAILY Allergy 12/26/21 08/13/22 Rx mcg/actuation nasal symptoms #16 grams spray,suspension loratadine 10 mg capsule 10 mg PO DAILY Allergy symptoms 12/26/21 08/13/22 Rx #90 caps albuterol sulfate 2.5 mg/3 mL 2.5 mg (3 mL) inhalation BID PRN 02/09/22 08/13/22 Rx (0.083 %) solution for nebulization Shortness Of Breath #75 mL naproxen 500 mg tablet 500 mg PO BID Pain 04/08/22 08/13/22 History lorazepam 1 mg tablet 1 mg PO DAILY PRN anxiety #14 tabs 08/04/22 08/13/22 Rx
== END ==
PROVIDERS: PCP Family Medicine; Visit Provider Nurse Practitioner Family
DX: M25.561 Pain in right knee (principal)
CPT/HCPCS: 99202; G0463

== ENCOUNTER → 2022-09-22 10:39 | Outpatient (POV) | payer OTHER, SELFPAY ==
[2022-09-22 10:55] VITALS: BP 130/66; PULSE 65; RESP 18; O2SAT 97; BMI 24.3
--- NOTE | 2022-09-22 12:06 | EXP.PAIN.SOA ---
[facility] Pain Management SOAP Note Subjective:: Patient is a pleasant 37-year-old who presents today for follow-up of genicular nerve block denial. We are currently treating the patient for right knee pain. Today she rates her pain a 9 out of 10. Patient states the pain is all in her knee and describes this as a throbbing, burning, stabbing sensation that radiates from her right knee down her leg. Patient denies any new trauma or injury. Patient denies any change location or type of pain she experiences. She states that this does cause significant interference with the ability to perform activities of daily living such as doing light housework or even grocery shopping. Patient states she has decreased function following this injury and cannot tolerate prolonged standing or walking due to the pain. Patient states this is all related to an injury she suffered in May of last year. Patient does have imaging of her right knee that showed lateral patellar subluxation with partial tear of the medial patellofemoral ligament and moderate joint effusion. Patient did undergo surgery in September however this did not improve her symptoms. Patient also had multiple cortisone intra-articular injections however this worsened her pain symptoms. Patient does use mmbm-pjp-wdsynfx Tylenol or ibuprofen to help provide some improvement of her symptoms. Patient is also prescribed Manilla 7.5 mg 3 times a day from an outside provider. Patient denies any side effects from this medication. She states this medication does help with some of her pain symptoms. Patient has been to physical therapy in the past following surgery. Patient does continue to do at home exercising and stretching however this is limited based off of her worsening pain symptoms. Patient has been to see Dr. Caio Jo for her right knee pain and states that he does want to do surgical intervention however he would like her to try conservative therapy at our office first such as injections. Her Gian is [id number]. Its been reviewed and appropriate. Review of Systems: General: No recent weight changes, no fever, no sleep disturbances Respiratory: No cough, no shortness of air, no recurring pulmonary infections Cardiovascular/peripheral vascular: No chest pain, no palpitations, no edema, no shortness of breath Gastrointestinal: No new onset incontinence, normal bowel movements reported Genitourinary: No new onset incontinence Musculoskeletal: Right knee pain Psychiatric: [Normal mood/affect] Neurological: [Denies weakness in extremities], [denies balance issues] Objective:: Physical Exam: General: Alert and oriented x3, no acute distress, pleasant and cooperative Lungs: Respirations even and unlabored, symmetrical chest expansion Eyes: PERRL Musculoskeletal: Flexion and extension of right knee somewhat guarded secondary to pain, [antalgic gait noted] Neurological: Speech clear, no gross sensory deficit Assessment:: Right knee pain, lateral patellar subluxation with partial tear of the medial patellofemoral ligament, chronic pain Plan:: Patient is experiencing significant pain in her right knee related to a injury at work. Patient continues to experience decreased range of motion of this joint. Patient's MRI did show lateral patellar subluxation with a partial tear of the medial patellofemoral ligament and moderate joint effusion with postoperative changes of her medial meniscus. I have discussed with the patient that I do think she would still benefit from a right genicular nerve block. Risk and benefits were discussed with the patient. She would like to proceed forward with this plan of care. She is not on any blood thinners. Patient has tried and failed conservative therapy such as oral medications, topicals, physical therapy, at home exercising and stretching as well as surgical intervention. I do believe this is medically necessary to help provide the patient with increased ability to perform activities
== END ==
PROVIDERS: PCP Family Medicine; Visit Provider Nurse Practitioner Family
DX: S83.011A Lateral subluxation of right patella, initial encounter (principal); M25.561 Pain in right knee; G89.29 Other chronic pain; F17.210 Nicotine dependence, cigarettes, uncomplicated
CPT/HCPCS: 99212; G0463

== ENCOUNTER → 2022-11-19 08:40 | Outpatient (CLI) | payer OTHER, SELFPAY ==
--- NOTE | 2022-11-19 08:51 | XR_ITS ---
FINAL REPORT CLINICAL HISTORY: rt knee pain COMPARISON: 08/13/2022 FINDINGS: Three views of the right knee reveal no evidence of fracture or dislocation. The bony alignment is normal. The joint spaces are preserved. There is no evidence of joint effusion. There is a small chronic calcification lateral to the patella. No localized soft tissue abnormality is identified. IMPRESSION: No acute process. No change from prior. Reviewed, Interpreted and Dictated by King Garcia III, MD Transcribed by Ne Palmer Authenticated and [facility]
== END ==
PROVIDERS: PCP Family Medicine; Visit Provider Orthopaedic Surgery
DX: S83.011A Lateral subluxation of right patella, initial encounter (principal)
CPT/HCPCS: 73562

== ENCOUNTER 2022-12-01 09:59 | Emergency (ER) | payer OTHER, SELFPAY ==
[2022-12-01 09:59] VITALS: BP 129/87; PULSE 75; RESP 18; TEMP 37.1; O2SAT 100; BMI 24.6
--- NOTE | 2022-12-01 10:14 | PC.NURSE ---
DR LEIGH AT BEDSIDE
--- NOTE | 2022-12-01 10:23 | CT_ITS ---
FINAL REPORT TECHNIQUE: Thin section axial CT images of the right knee with coronal and sagittal reformats were performed. This study was performed with techniques to keep radiation doses as low as reasonably achievable (ALARA). Individualized dose reduction techniques using automated exposure control or adjustment of mA and/or kV according to the patient's size were employed. CLINICAL HISTORY: injury, heard pop this morning. pain since. hx of prior knee injury 2020 with surgery repair FINDINGS: CT RIGHT KNEE There is no fracture or dislocation. The musculature is intact. There is a small joint effusion. There are no soft tissue abnormalities. IMPRESSION: Small joint effusion, otherwise unremarkable exam. Reviewed, Interpreted and Dictated by King Garcia III, MD Transcribed by Vanessa Espinoza Authenticated and [facility]
--- NOTE | 2022-12-01 10:23 | PC.NURSE ---
PATRICE MAGALLON speaking with dr. mariscal
--- NOTE | 2022-12-01 10:25 | PC.NURSE ---
rad notified of CT order
--- NOTE | 2022-12-01 10:27 | PC.NURSE ---
ER at discussing POC with pt
--- NOTE | 2022-12-01 10:28 | HMH.EDGENADL ---
Discharge Plan Disposition Patient Disposition: Home, Self-Care Condition: Good Prescriptions Prescriptions: New ondansetron 4 mg tablet,disintegrating 4 mg PO Q8H PRN (Reason: nausea and vomiting) Qty: 10 0RF No Action albuterol sulfate 90 mcg/actuation HFA aerosol inhaler 2 puff INHALATION Q6 PRN (Reason: Shortness Of Breath Or Wheezing) Qty: 8.5 10RF fluticasone propionate 50 mcg/actuation spray,suspension 2 spray INTRANASAL DAILY Qty: 16 10RF Rx Instructions: each nostril daily citalopram 20 mg tablet 40 mg PO DAILY Qty: 90 3RF naproxen 500 mg tablet 500 mg PO BID Qty: 60 0RF loratadine 10 mg capsule 10 mg PO DAILY Qty: 90 10RF lorazepam 1 mg tablet 1 mg PO DAILY PRN (Reason: anxiety) Qty: 14 3RF Rx Instructions: for anxiety unrelieved by buspar, use for panic level anxiety only albuterol sulfate 2.5 mg /3 mL (0.083 %) solution for nebulization 2.5 mg IH BID PRN (Reason: Shortness Of Breath) Qty: 75 5RF fluconazole [Diflucan] 100 mg tablet 100 mg PO DAILY Qty: 5 0RF hydrocodone-acetaminophen 7.5-325 mg tablet See Rx Instructions .ROUTE .COMPLEX PRN (Reason: pain) Qty: 45 0RF Rx Instructions: one po tid prn pain methylprednisolone [Medrol (Bob)] 4 mg tablets,dose pack See Rx Instructions PO PER PKG DIR Qty: 21 0RF Rx Instructions: PO PER PKG DIR budesonide-formoterol [Symbicort] 160-4.5 mcg/actuation HFA aerosol inhaler See Rx Instructions .ROUTE .COMPLEX Rx Instructions: INHALE TWO PUFFS BY MOUTH TWICE DAILY --RINSE MOUTH AFTER USE-- estradiol 2 mg tablet See Rx Instructions .ROUTE .COMPLEX Rx Instructions: TAKE ONE TABLET BY MOUTH EVERY DAY diclofenac sodium [Voltaren Arthritis Pain] 1 % gel 2 g topical QID Rx Instructions: apply to single elbow, wrist or hand; for hand includes palm/fingers/back of hand Referrals Follow up/Referrals: Jitendra Hartley MD [Primary Care Provider] - See instructions Activity Restrictions/Add. Instructions Additional Instructions/Restrictions: Knee immobilizer until seen by orthopedics. Call Dr. Jo's office today to schedule follow-up appointment. Continue your current pain medication. Ice 20 minutes 4 times a day to reduce pain and swelling. Use your crutches as needed. Clinical Impressions Clinical Impression: Injury of knee, right, Effusion of right knee Discharge ED Provider: Toribio Espinoza General Adult HPI General Chief complaint: PAIN Stated complaint: RT knee pain post op 1 year ago Time Seen by Provider: 12/01/22 10:12 Mode of Arrival: Ambulatory Source of Information: Patient Limitations: No Limitations Description of Symptoms (Recalled from ER Triage Doc. by RN): PT WITH C/O RIGHT KNEE PAIN. STATES THIS AM SHE WAS WALKING TO BR AND HAD SUDDEN PAIN AND CLICKING AND CLACKING OF KNEE. ONGOING ISSUE WITH KNEE PAIN SINCE INJURY 05/2020 AFTER A FALL AT WORK. HAD MENISCUS REPAIR 09/2020. REPORTS PATELLA UNSTABLE History of Present Illness HPI narrative: Patient states that she was walking in her house today and when she had the kitchen floor she felt a crunching and pain in her medial right knee. She felt like her patella shifted laterally. She is not sure whether came back into place. Since then she has severe pain in the medial aspect of her knee. She feels this is and exacerbation of a previous condition. She says that she injured her knee from a fall at work and had surgery on her right medial meniscus in September 2020. She had this done by Dr. Jasmine in [place]. She has had continued problems since then. Most recently was referred by her primary care provider, Dr. Hartley, to Dr. Jo at this facility. She says Dr. Hartley has her on hydrocodone 7.5 mg for her chronic pain. She took some this morning and said has not helped the pain at all. She also complains of nausea. Related Data Home Medications Medication Instructions
--- NOTE | 2022-12-01 10:30 | PC.NURSE ---
pt to Ct via wheelchair
--- NOTE | 2022-12-01 10:39 | PC.NURSE ---
pt return from CT
--- NOTE | 2022-12-01 11:18 | PC.NURSE ---
pt to restroom via WC; no complications
[2022-12-01 11:20] VITALS: BP 123/79; PULSE 72; O2SAT 98
--- NOTE | 2022-12-01 11:22 | PC.NURSE ---
ER aware that pt is still nauseous.
--- NOTE | 2022-12-01 11:25 | PC.NURSE ---
DR LEIGH AT BEDSIDE TO UPDATE PT ON POC
--- NOTE | 2022-12-01 11:25 | PC.NURSE ---
PATRICE MAGALLON at discussing test results with pt.
[2022-12-01 11:45] VITALS: BP 112/82; PULSE 69; RESP 18; TEMP 36.7; O2SAT 98
== END 2022-12-01 11:45 | disposition home or self-care (01) ==
PROVIDERS: Emergency Provider Emergency Medicine; PCP Family Medicine
DX: M25.561 Pain in right knee (principal); Z87.09 Personal history of other diseases of the respiratory system; F17.210 Nicotine dependence, cigarettes, uncomplicated
CPT/HCPCS: 73700; 96374; 96375; 99285; J2405

== ENCOUNTER 2022-12-27 19:01 | Emergency (ER) | payer OTHER, SELFPAY ==
[2022-12-27 19:03] VITALS: BP 100/64; PULSE 78; RESP 18; TEMP 36.7; O2SAT 99; BMI 21.4
--- NOTE | 2022-12-27 19:53 | XR_ITS ---
PROCEDURE INFORMATION: Exam: XR Right Tibia and Fibula Exam date and time: 12/27/2022 7:52 PM Age: 37 years old Clinical indication: Injury or trauma; Fall; Blunt trauma; Lower leg; Right TECHNIQUE: Imaging protocol: Radiologic exam of the right tibia and fibula. Views: 2 views. COMPARISON: CR XR TIBIA FIBULA RT 2V 05/16/2021 1:36 PM FINDINGS: Bones/joints: Normal. Soft tissues: Normal. IMPRESSION: No acute findings.
--- NOTE | 2022-12-27 19:53 | XR_ITS ---
PROCEDURE INFORMATION: Exam: XR Right Knee Exam date and time: 12/27/2022 7:54 PM Age: 37 years old Clinical indication: Injury or trauma; Fall; Blunt trauma; Knee; Right TECHNIQUE: Imaging protocol: Radiologic exam of the right knee. Views: 3 views. COMPARISON: CT KNEE RT WO CON 12/01/2022 10:28 AM FINDINGS: Bones/joints: Normal. Soft tissues: Normal. IMPRESSION: No acute findings.
--- NOTE | 2022-12-27 21:14 | HMH.EDGENADL ---
Discharge Plan Disposition Patient Disposition: Home, Self-Care Prescriptions Prescriptions: No Action albuterol sulfate 90 mcg/actuation HFA aerosol inhaler 2 puff INHALATION Q6 PRN (Reason: Shortness Of Breath Or Wheezing) Qty: 8.5 10RF fluticasone propionate 50 mcg/actuation spray,suspension 2 spray INTRANASAL DAILY Qty: 16 10RF Rx Instructions: each nostril daily citalopram 20 mg tablet 40 mg PO DAILY Qty: 90 3RF naproxen 500 mg tablet 500 mg PO BID Qty: 60 0RF loratadine 10 mg capsule 10 mg PO DAILY Qty: 90 10RF lorazepam 1 mg tablet 1 mg PO DAILY PRN (Reason: anxiety) Qty: 30 1RF Rx Instructions: for anxiety unrelieved by buspar, use for panic level anxiety only hydrocodone-acetaminophen 7.5-325 mg tablet See Rx Instructions .ROUTE .COMPLEX PRN (Reason: pain) Qty: 45 0RF Rx Instructions: one po tid prn pain albuterol sulfate 2.5 mg /3 mL (0.083 %) solution for nebulization 2.5 mg IH BID PRN (Reason: Shortness Of Breath) Qty: 75 5RF fluconazole [Diflucan] 100 mg tablet 100 mg PO DAILY Qty: 5 0RF budesonide-formoterol [Symbicort] 160-4.5 mcg/actuation HFA aerosol inhaler See Rx Instructions .ROUTE .COMPLEX Rx Instructions: INHALE TWO PUFFS BY MOUTH TWICE DAILY --RINSE MOUTH AFTER USE-- ondansetron 4 mg tablet,disintegrating 4 mg PO Q8H PRN (Reason: nausea and vomiting) Qty: 10 0RF estradiol 2 mg tablet See Rx Instructions .ROUTE .COMPLEX Rx Instructions: TAKE ONE TABLET BY MOUTH EVERY DAY diclofenac sodium [Voltaren Arthritis Pain] 1 % gel 2 g topical QID Rx Instructions: apply to single elbow, wrist or hand; for hand includes palm/fingers/back of hand Referrals Follow up/Referrals: Jaoo Jo DO [Staff Physician] - See instructions Jitendra Hartley MD [Primary Care Provider] - See instructions Clinical Impressions Clinical Impression: Injury of knee, right Instructions Patient Instructions: DI for Knee Pain Discharge ED Provider: Rosmery (ED)Jose Cruz General Adult HPI General Chief complaint: PAIN Stated complaint: phy ref Right knee pain Time Seen by Provider: 12/27/22 21:00 Mode of Arrival: Family Vehicle Source of Information: Patient, Significant Other and Medical Record Limitations: No Limitations Description of Symptoms (Recalled from ER Triage Doc. by RN): Pt has been having right knee pain since last september after having knee surgery. States takes pain medication at home that is not releiving her pain. States she fell yesterday while feeding her chickens and the pain is worse now. History of Present Illness HPI narrative: rt knee pain - has episodes of instability - has had issues since 10/19- has pending mri - has used home meds but still with pain - using splint and crutches - had fal yesterday Onset (ago): day(s) Location: lower extremity Severity: moderate Consistency: constant Associated symptoms: denies other symptoms Treatments prior to arrival: cold therapy and other (home meds ) Related Data Home Medications Medication Instructions Recorded Confirmed diclofenac sodium 1 % topical gel 2 g topical QID Pain 08/13/22 12/22/22 (Voltaren Arthritis Pain) estradiol 2 mg tablet See Rx Instructions .Route 08/13/22 12/22/22 .COMPLEX SUPPLIMENT budesonide-formoterol HFA 160 See Rx Instructions .Route 09/22/22 12/22/22 mcg-4.5 mcg/actuation aerosol .COMPLEX Breathing problems inhaler (Symbicort) Previous Rx's Medication Instructions Recorded albuterol sulfate 90 mcg/actuation 2 puff inhalation Q6 PRN Shortness 08/19/21 aerosol inhaler Of Breath Or Wheezing #8.5 grams citalopram 20 mg tablet 40 mg PO DAILY Depression #90 tabs 12/26/21 fluticasone propionate 50 2 spray intranasal DAILY Allergy 12/26/21 mcg/actuation nasal symptoms #16 grams spray,suspension albuterol sulfate 2.5 mg/3 mL 2.5 mg (3 mL) inhalation BID PRN 02/09/22 (0.083 %) solution for
[2022-12-27 22:13] VITALS: BP 105/68; PULSE 89; RESP 19; TEMP 36.8; O2SAT 98
== END 2022-12-27 22:20 | disposition home or self-care (01) ==
PROVIDERS: Emergency Provider Emergency Medicine; PCP Family Medicine
DX: M25.561 Pain in right knee (principal); W19.XXXA Unspecified fall, initial encounter
CPT/HCPCS: 73562; 73590; 96372; 99283; 99284

== ENCOUNTER → 2023-01-05 11:08 | Outpatient (CLI) | payer OTHER, SELFPAY ==
--- NOTE | 2023-01-05 11:18 | MR_ITS ---
FINAL REPORT CLINICAL HISTORY: knee pain right medial knee pain prior mri of right knee 03/2022 COMPARISON: March 2022 FINDINGS: Multiplanar MR imaging of the right knee was performed without contrast. There is probable postoperative change of the medial meniscus. The lateral meniscus is intact. The anterior and posterior cruciate ligaments are intact. There is thickening of the proximal medial collateral ligament that may reflect sequela of prior partial tear. The lateral collateral ligament is intact. There is edema in Hoffa's fat pad. The patellar and quadriceps tendons are intact. There is no evidence of fracture. Mild lateral patellar subluxation is partially improved. No focal abnormality is identified of the articular cartilage. A moderate joint effusion is partially improved. The musculature is intact. No soft tissue mass or cyst is identified. IMPRESSION: Probable postoperative change of the medial meniscus. Partial improvement in lateral patellar subluxation and moderate joint effusion. Thickening of the proximal medial collateral ligament may represent sequela of prior partial tear. Edema in Hoffa's fat pad. Reviewed, Interpreted and Dictated by King Garcia III, MD Transcribed by Tommie Gerber Authenticated and [facility]
== END ==
PROVIDERS: PCP Family Medicine; Visit Provider Orthopaedic Surgery
DX: M25.561 Pain in right knee (principal); S89.91XA Unspecified injury of right lower leg, initial encounter
CPT/HCPCS: 73721

== ENCOUNTER 2023-01-07 16:22 | Outpatient (RCR) | payer OTHER, SELFPAY | END 2023-01-07 17:30 | disposition home or self-care (01) | LOC: PT 16:22 | PROVIDERS: Visit Provider Orthopaedic Surgery | DX: M25.561 Pain in right knee (principal) | CPT/HCPCS: 97760 ==

== ENCOUNTER 2023-02-24 12:54 | Emergency (ER) | payer OTHER, SELFPAY ==
[2023-02-24 12:56] VITALS: BP 131/71; PULSE 91; RESP 17; TEMP 36.7; O2SAT 98; BMI 20.9
[2023-02-24 13:22] VITALS: BMI 20.9
--- NOTE | 2023-02-24 13:23 | XR_ITS ---
FINAL REPORT CLINICAL HISTORY: foot pain neck to toes on the medial side COMPARISON: None FINDINGS: There is no acute fracture or dislocation. The joint spaces are intact. There is no soft tissue abnormality. IMPRESSION: No acute fracture Reviewed, Interpreted and Dictated by Kelton Silva MD Transcribed by Alicia Chavis Authenticated and [facility]
--- NOTE | 2023-02-24 13:23 | XR_ITS ---
FINAL REPORT CLINICAL HISTORY: medial ankle pain COMPARISON: None FINDINGS: RIGHT ANKLE: 2 views of the right ankle were obtained. There is no acute fracture or dislocation. The joint spaces are intact. There is no soft tissue abnormality. IMPRESSION: No acute fracture Reviewed, Interpreted and Dictated by Kelton Silva MD Transcribed by Alicia Chavis Authenticated and [facility]
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
[2023-02-24 14:03] VITALS: BP 126/79; PULSE 87; RESP 17; TEMP 37.2; O2SAT 98
== END 2023-02-24 14:30 | disposition home or self-care (01) ==
PROVIDERS: Emergency Provider Student in an Organized Health Care Education/Training Program; PCP Family Medicine
DX: S93.602A Unspecified sprain of left foot, initial encounter (principal); S93.402A Sprain of unspecified ligament of left ankle, initial encounter; K21.9 Gastro-esophageal reflux disease without esophagitis; F17.210 Nicotine dependence, cigarettes, uncomplicated; W01.0XXA Fall on same level from slipping, tripping and stumbling without subsequent striking against object, initial encounter
CPT/HCPCS: 73600; 73620; 99283; 99284

== ENCOUNTER → 2023-04-14 09:58 | Outpatient (CLI) | payer OTHER, SELFPAY ==
[2023-04-14 20:02] LABS: Basophils # 0.1 K/mm3 (0-0.2); Basophils % 0.8 % (0.1-2.0); Eosinophils # 0.4 K/mm3 (0.0-0.4); Eosinophils % 4.3 % (0.1-12.0); Hematocrit 40.7 % (37.0-47.0); Hemoglobin 12.7 g/dL (12.2-16.2); Lymphocytes # 3.9 K/mm3 (0.7-4.5); Lymphocytes % 44.3 % (10-50); Mean Corpuscular HGB Conc 31.2 g/dL (31.8-35.4); Mean Corpuscular Hemoglobin 28.6 pg (27.0-31.2); Mean Corpuscular Volume 91.7 fl (81-99); Mean Platelet Volume 9.2 fl (7.4-10.4); Monocytes # 0.4 K/mm3 (0.1-1.0); Monocytes % 4.1 % (1.7-9.3); Neutrophils # 4.1 K/mm3 (1.8-7.8); Neutrophils % 46.5 % (37.0-80.0); Platelet Count 377 K/mm3 (142-424); Red Blood Count 4.44 M/mm3 (4.20-5.40); Red Cell Distribution Width 12.7 % (11.5-17.5); White Blood Count 8.7 K/mm3 (4.8-10.8)
== END ==
PROVIDERS: PCP Nurse Practitioner; Visit Provider Nurse Practitioner
DX: J06.9 Acute upper respiratory infection, unspecified (principal)
CPT/HCPCS: 85025

== ENCOUNTER → 2023-05-20 13:46 | Outpatient (CLI) | payer OTHER, SELFPAY ==
--- NOTE | 2023-05-20 13:52 | XR_ITS ---
FINAL REPORT CLINICAL HISTORY: Lt foot pain COMPARISON: 02/24/2023 FINDINGS: Left foot Three views were obtained. There is mild sclerosis in the distal 2nd, 3rd, and 4th metatarsals which may be related to subtle healing stress or traumatic fractures. The joint spaces appear normal. No soft tissue abnormality is identified. IMPRESSION: Sclerosis in the distal 2nd through 4th metatarsals, may be related to stress or traumatic fractures. Please correlate with clinical history. Reviewed, Interpreted and Dictated by Kelton Silva MD Transcribed by Jael Carbone Authenticated and [facility]
== END ==
PROVIDERS: PCP Family Medicine; Visit Provider Orthopaedic Surgery
DX: S92.302A Fracture of unspecified metatarsal bone(s), left foot, initial encounter for closed fracture (principal)
CPT/HCPCS: 73630

== ENCOUNTER → 2023-07-12 23:39 | Outpatient (CLI) | payer OTHER, SELFPAY ==
[2023-07-12 17:46] LABS: Coronavirus 19, PCR Not Detected (NotDetected); Influenza A, PCR Not Detected (NotDetected); Influenza B, PCR Not Detected (NotDetected)
== END ==
PROVIDERS: PCP Family Medicine; Visit Provider Family Medicine
DX: J02.9 Acute pharyngitis, unspecified (principal)
CPT/HCPCS: 87636

== ENCOUNTER 2023-08-28 13:13 | Emergency (ER) | payer OTHER, SELFPAY ==
[2023-08-28 13:14] VITALS: BP 133/79; PULSE 80; RESP 20; TEMP 36.8; O2SAT 99; BMI 21.2
--- NOTE | 2023-08-28 13:16 | HMH.EDGENADL ---
Discharge Plan Disposition Patient Disposition: Home, Self-Care Prescriptions Prescriptions: New cyclobenzaprine 5 mg tablet 5 mg PO TID PRN (Reason: muscle spasm) Qty: 30 0RF No Action hydroxyzine HCl 25 mg tablet 25 mg PO Q6H PRN albuterol sulfate 90 mcg/actuation HFA aerosol inhaler 2 puff INHALATION Q6 PRN (Reason: Shortness Of Breath Or Wheezing) Qty: 8.5 10RF fluticasone propionate 50 mcg/actuation spray,suspension 2 spray INTRANASAL DAILY Qty: 16 10RF Rx Instructions: each nostril daily loratadine 10 mg capsule 10 mg PO DAILY Qty: 90 10RF hydrocodone-acetaminophen 7.5-325 mg tablet See Rx Instructions .ROUTE .COMPLEX PRN (Reason: pain) Qty: 30 0RF Rx Instructions: ONE PO QD THIS IS FOR 1 MONTH DOSE REDUCTION lorazepam 1 mg tablet 1 mg PO DAILY PRN (Reason: anxiety) Qty: 30 3RF Rx Instructions: for anxiety unrelieved by buspar, use for panic level anxiety only use sparingly this is for 1 month supply citalopram 20 mg tablet 40 mg PO DAILY Qty: 90 3RF estradiol 2 mg tablet See Rx Instructions .ROUTE .COMPLEX Qty: 30 5RF Dose Instruction: TAKE ONE TABLET BY MOUTH EVERY DAY Rx Instructions: TAKE ONE TABLET BY MOUTH EVERY DAY albuterol sulfate 2.5 mg /3 mL (0.083 %) solution for nebulization 2.5 mg IH BID PRN (Reason: Shortness Of Breath) Qty: 75 5RF azithromycin [Zithromax TRI-JEROD] 500 mg tablet See Rx Instructions PO .COMPLEX Qty: 3 0RF Rx Instructions: For 500 mg dose pack: take 500 mg once daily for 3 days PO ondansetron 4 mg tablet,disintegrating 4 mg PO Q6H PRN (Reason: nausea and vomiting) Qty: 30 0RF Rx Instructions: take 1 tablet every 6 hours as needed budesonide-formoterol [Symbicort] 160-4.5 mcg/actuation HFA aerosol inhaler See Rx Instructions .ROUTE .COMPLEX Rx Instructions: INHALE TWO PUFFS BY MOUTH TWICE DAILY --RINSE MOUTH AFTER USE-- Referrals Follow up/Referrals: Jitendra Hartley MD [Primary Care Provider] - See instructions Activity Restrictions/Add. Instructions Additional Instructions/Restrictions: Please follow-up with your primary care provider. Please return to the emergency department if you develop any new or worsening symptoms or become concerned for your health. Take muscle relaxer as needed. Clinical Impressions Clinical Impression: Myalgia, Acute viral syndrome Stand Alone Forms Stand Alone Forms: Work/School Release Discharge ED Provider: Derrick Hsieh General Adult HPI General Chief complaint: Upper Respiratory Infection Stated complaint: fever,sore throat Time Seen by Provider: 08/28/23 13:16 History of Present Illness HPI narrative: 38-year-old female, history of asthma, COPD, fatty liver, chronic tobacco smoking presents for muscle aches, sore throat, shortness of breath. She reports that she has used her inhalers without change. She reports that she recently started taking azithromycin prescribed by her PCP over the phone. Symptoms started on , 2 days ago. Denies focal chest pain. Reports nausea. Nausea is improved with Zofran at home. Reports fever at home. Denies any urinary or bowel symptoms. Related Data Home Medications Medication Instructions Recorded Confirmed budesonide-formoterol HFA 160 See Rx Instructions .Route 09/22/22 08/05/23 mcg-4.5 mcg/actuation aerosol .COMPLEX Breathing problems inhaler (Symbicort) hydroxyzine HCl 25 mg tablet 25 mg PO Q6H PRN 02/26/23 08/05/23 Previous Rx's Medication Instructions Recorded albuterol sulfate 2.5 mg/3 mL 2.5 mg (3 mL) inhalation BID PRN 02/09/22 (0.083 %) solution for nebulization Shortness Of Breath #75 mL albuterol sulfate 90 mcg/actuation 2 puff inhalation Q6 PRN Shortness 01/05/23 aerosol inhaler Of Breath Or Wheezing #8.5 grams fluticasone propionate 50 2 spray intranasal DAILY Allergy 02/02/23 mcg/actuation nasal symptoms #16 grams spray,suspe
--- NOTE | 2023-08-28 13:17 | PC.NURSE ---
Dr. Hsieh at for pt eval
--- NOTE | 2023-08-28 13:17 | PC.NURSE ---
DR CIFUENTES AT BEDSIDE
--- NOTE | 2023-08-28 13:21 | XR_ITS ---
PROCEDURE INFORMATION: Exam: XR Chest Exam date and time: 08/28/2023 1:25 PM Age: 38 years old Clinical indication: Shortness of breath; Additional info: SOA, HX asthma copd TECHNIQUE: Imaging protocol: Radiologic exam of the chest. Views: 1 view. COMPARISON: CR XR CHEST 2V 02/23/2022 12:25 PM FINDINGS: Lungs: Unremarkable. No consolidation. Pleural spaces: Unremarkable. No pleural effusion. No pneumothorax. Heart/Mediastinum: Unremarkable. No cardiomegaly. Bones/joints: Unremarkable. IMPRESSION: No acute findings.
[2023-08-28 13:27] LABS: Coronavirus 19, PCR Not Detected (NotDetected); Influenza A, PCR Not Detected (NotDetected); Influenza B, PCR Not Detected (NotDetected)
--- NOTE | 2023-08-28 13:28 | PC.NURSE ---
PORTABLE XRAY AT BEDSIDE
[2023-08-28 13:36] LABS: Strep Scrn Group A (Rapid) Negative (Negative)
[2023-08-28 14:00] VITALS: BP 113/75; PULSE 81; O2SAT 98
--- NOTE | 2023-08-28 14:26 | PC.NURSE ---
ER AT BEDSIDE
[2023-08-28 14:30] VITALS: BP 128/66; PULSE 82; RESP 18; TEMP 36.8; O2SAT 97
== END 2023-08-28 14:38 | disposition home or self-care (01) ==
PROVIDERS: Emergency Provider Emergency Medicine; PCP Family Medicine
DX: R06.02 Shortness of breath (principal); J02.9 Acute pharyngitis, unspecified; J44.9 Chronic obstructive pulmonary disease, unspecified; B34.9 Viral infection, unspecified; R11.0 Nausea; F17.210 Nicotine dependence, cigarettes, uncomplicated
CPT/HCPCS: 71045; 87430; 87636; 99284

== ENCOUNTER → 2023-09-02 07:21 | Outpatient (CLI) | payer OTHER, SELFPAY ==
[2023-09-02 20:05] LABS: Benzodiazepines Screen,Urine Positive ng/ml (<200)
[2023-09-02 20:06] LABS: Amphetamine/Metha Screen,Urine Negative ng/ml (<1000)
[2023-09-02 20:07] LABS: Barbiturates Screen,Urine Negative ng/ml (<200); Methadone Screen,Urine Negative ng/ml (<300)
[2023-09-02 20:08] LABS: Cannabinoid Screen,Urine Positive ng/ml (<50)
[2023-09-02 20:09] LABS: Cocaine Screen,Urine Negative ng/ml (<300); Opiate Screen,Urine Negative ng/ml (<300)
[2023-09-02 20:10] LABS: Phencyclidine Screen,Urine Negative ng/ml (<25)
== END ==
PROVIDERS: PCP Family Medicine; Visit Provider Family Medicine
DX: Z79.899 Other long term (current) drug therapy (principal)
CPT/HCPCS: 80305

== ENCOUNTER 2023-10-07 19:40 | Outpatient (CLI) | payer OTHER, SELFPAY ==
[2023-10-07 19:42] LABS: Coronavirus 19, PCR Not Detected (NotDetected); Influenza A, PCR Not Detected (NotDetected); Influenza B, PCR Not Detected (NotDetected)
[2023-10-07 19:46] LABS: Basophils # 0.1 K/mm3 (0-0.2); Basophils % 0.6 % (0.1-2.0); Eosinophils # 0.2 K/mm3 (0.0-0.4); Eosinophils % 2.3 % (0.1-12.0); Hematocrit 39.5 % (37.0-47.0); Hemoglobin 13.2 g/dL (12.2-16.2); Lymphocytes # 3.8 K/mm3 (0.7-4.5); Lymphocytes % 52.5 % (10-50); Mean Corpuscular HGB Conc 33.4 g/dL (31.8-35.4); Mean Corpuscular Hemoglobin 30.4 pg (27.0-31.2); Mean Corpuscular Volume 90.9 fl (81-99); Mean Platelet Volume 8.8 fl (7.4-10.4); Monocytes # 0.3 K/mm3 (0.1-1.0); Monocytes % 4.3 % (1.7-9.3); Neutrophils # 2.9 K/mm3 (1.8-7.8); Neutrophils % 40.3 % (37.0-80.0); Platelet Count 364 K/mm3 (142-424); Red Blood Count 4.35 M/mm3 (4.20-5.40); Red Cell Distribution Width 13.3 % (11.5-17.5); White Blood Count 7.3 K/mm3 (4.8-10.8)
[2023-10-07 19:52] LABS: MANUAL DIFFERENTIAL MANUAL DIFFERENTIAL (MANUAL DIFF)
[2023-10-07 20:10] LABS: Chloride 107 mmol/L (98-107); Potassium 4.7 mmoL/L (3.5-5.1); Sodium 140 mmol/L (136-145)
[2023-10-07 20:13] LABS: Alanine Aminotransferase 31 U/L (12-78); Albumin Level 3.7 g/dl (3.5-5.0); Albumin/Globulin Ratio 1.2 (1.1-1.8); Alkaline Phosphatase 66 U/L (38-126); Anion Gap 8.7 mEq/L (5-15); Aspartate Amino Transferase 39 U/L (14-36); Bilirubin,Total 0.5 mg/dl (0.2-1.3); Blood Urea Nitrogen 16 mg/dl (7-17); Carbon Dioxide 29 mmol/L (22.0-30.0); Estimated Glomerular Filt Rate 81 ml/min (>60); GFR (African American) 98 ML/MIN (>60); Total Protein,Serum 6.7 g/dl (6.3-8.2)
[2023-10-07 20:14] LABS: Calcium 8.7 mg/dl (8.4-10.2); Glucose 88 mg/dl (74-100)
[2023-10-07 20:49] LABS: Eosinophils % 4 % (0-3); Lymphocytes % 55 % (10-50); Monocytes % 3 % (2-9); Neutrophils % 36 % (42-76); Platelet Estimate Normal; RBC Morphology Normal; Total Cells Counted 100
== END 2023-10-07 23:59 ==
LOC: LAB.DROPOF 19:40
PROVIDERS: PCP Nurse Practitioner; Visit Provider Nurse Practitioner
DX: J06.9 Acute upper respiratory infection, unspecified (principal); R09.81 Nasal congestion; R05.8 Other specified cough; R51.9 Headache, unspecified; R11.0 Nausea; R06.2 Wheezing
CPT/HCPCS: 80053; 85007; 85025; 87636

== ENCOUNTER 2023-10-11 18:48 | Outpatient (CLI) | payer OTHER, SELFPAY ==
[2023-10-11 22:26] LABS: Amphetamine/Metha Screen,Urine Negative ng/ml (<1000)
[2023-10-11 22:27] LABS: Barbiturates Screen,Urine Negative ng/ml (<200)
[2023-10-11 22:28] LABS: Benzodiazepines Screen,Urine Negative ng/ml (<200); Cocaine Screen,Urine Negative ng/ml (<300)
[2023-10-11 22:29] LABS: Methadone Screen,Urine Negative ng/ml (<300); Opiate Screen,Urine Negative ng/ml (<300)
[2023-10-11 22:30] LABS: Phencyclidine Screen,Urine Negative ng/ml (<25)
[2023-10-11 23:15] LABS: Cannabinoid Screen,Urine Negative ng/ml (<50)
== END 2023-10-11 23:59 ==
LOC: LAB.DROPOF 18:48
PROVIDERS: PCP Family Medicine; Visit Provider Family Medicine
DX: Z79.899 Other long term (current) drug therapy (principal)
CPT/HCPCS: 80307

== ENCOUNTER 2023-10-14 17:02 | Emergency (ER) | payer OTHER, SELFPAY ==
[2023-10-14 17:30] VITALS: BP 130/88; PULSE 70; RESP 19; TEMP 36.9; O2SAT 98; BMI 22.3
--- NOTE | 2023-10-14 18:00 | EXP.UTC ---
Discharge Plan Disposition Patient Disposition: Home, Self-Care Condition: Good Prescriptions Prescriptions: New Chloraseptic Throat [place] 1.4 % aerosol,spray 4 spray mucous membrane Q4H PRN (Reason: mouth pain) Qty: 177 0RF ibuprofen [IBU] 800 mg tablet 800 mg PO Q8HP PRN (Reason: Moderate Pain) Qty: 30 0RF lidocaine HCl [Lidocaine Viscous] 2 % solution 1 applic mucous membrane QIDP PRN (Reason: mouth pain) Qty: 100 0RF No Action hydroxyzine HCl 25 mg tablet 50 mg PO Q6H PRN hydrocodone-acetaminophen 7.5-325 mg tablet See Rx Instructions .ROUTE .COMPLEX PRN (Reason: pain) Qty: 10 0RF Rx Instructions: one po qd lorazepam 1 mg tablet 1 mg PO DAILY PRN (Reason: anxiety) Qty: 10 0RF cefdinir 300 mg capsule 300 mg PO BID Qty: 20 0RF nlmrpmbktmpckzk-[id number] [Bromfed DM] 2-30-10 mg/5 mL syrup 5 ml PO Q4-6H PRN (Reason: cold symptoms) Qty: 240 0RF fluticasone propionate 50 mcg/actuation spray,suspension 2 spray INTRANASAL DAILY Qty: 16 10RF Rx Instructions: each nostril daily ondansetron 4 mg tablet,disintegrating 4 mg PO Q6H PRN (Reason: nausea and vomiting) Qty: 30 0RF Rx Instructions: take 1 tablet every 6 hours as needed albuterol sulfate 2.5 mg /3 mL (0.083 %) solution for nebulization 2.5 mg IH BID PRN (Reason: Shortness Of Breath) Qty: 75 5RF albuterol sulfate 90 mcg/actuation HFA aerosol inhaler 2 puff INHALATION Q6 PRN (Reason: Shortness Of Breath Or Wheezing) Qty: 8.5 10RF citalopram 20 mg tablet 40 mg PO DAILY Qty: 90 3RF estradiol 2 mg tablet See Rx Instructions .ROUTE .COMPLEX Qty: 30 5RF Dose Instruction: TAKE ONE TABLET BY MOUTH EVERY DAY Rx Instructions: TAKE ONE TABLET BY MOUTH EVERY DAY budesonide-formoterol [Symbicort] 160-4.5 mcg/actuation HFA aerosol inhaler See Rx Instructions .ROUTE .COMPLEX Qty: 10.2 10RF Dose Instruction: INHALE TWO PUFFS BY MOUTH TWICE DAILY --RINSE MOUTH AFTER USE-- Rx Instructions: INHALE TWO PUFFS BY MOUTH TWICE DAILY --RINSE MOUTH AFTER USE-- loratadine 10 mg tablet See Rx Instructions .ROUTE .COMPLEX Qty: 90 10RF Dose Instruction: TAKE ONE TABLET BY MOUTH EVERY DAY FOR ALLERGY symptoms Rx Instructions: TAKE ONE TABLET BY MOUTH EVERY DAY FOR ALLERGY symptoms fluconazole 150 mg tablet 150 mg PO Q3D Qty: 2 0RF cyclobenzaprine 5 mg tablet 5 mg PO TID PRN (Reason: muscle spasm) Qty: 30 0RF Referrals Follow up/Referrals: Andi Higuera MD [Primary Care Provider] - See instructions Activity Restrictions/Add. Instructions Additional Instructions/Restrictions: Drink plenty of fluids. Take the medications as directed. Follow up with your regular doctor. GO TO THE ER FOR ANY WORSENING SYMPTOMS Clinical Impressions Clinical Impression: Oral pain Stand Alone Forms Stand Alone Forms: Work/School Release Discharge ED Provider: Maykel Salcido [facility] General Stated complaint: blisters in mouth Time Seen by Provider: 10/14/23 18:00 History of Present Illness Provider Complaint: She states that she has had multiple small sores in her mouth that are very painful. She states they have been bothering her for the past 2 days. She denies any sore throat and any other symptoms. Related Data Home Medications Medication Instructions Recorded Confirmed hydroxyzine HCl 25 mg tablet 50 mg PO Q6H PRN 09/02/23 10/07/23 Previous Rx's Medication Instructions Recorded albuterol sulfate 90 mcg/actuation 2 puff inhalation Q6 PRN Shortness 01/05/23 aerosol inhaler Of Breath Or Wheezing #8.5 grams citalopram 20 mg tablet 40 mg PO DAILY Depression #90 tabs 08/05/23 estradiol 2 mg tablet See Rx Instructions .Route 08/05/23 .COMPLEX #30 tabs cyclobenzaprine 5 mg tablet 5 mg PO TID PRN muscle spasm #30 08/28/23 tabs budesonide-formoterol HFA 160 See Rx Instructions .Route 09/07/23 mcg-4.5 mcg/actuation aerosol .COMPLEX #10.2 grams inhaler (Symbicort) loratadine 10 mg tablet See Rx Instructions .Route 09/08/23 .COMPLEX #90 tabs albuterol sulfate 2.5 mg/3 mL 2.5 mg (3 mL) inhalation BID PRN 10/07/23 (0.083 %) solution for nebulization Shortness Of Breath #75 mL qwjmbenzymhldqx-ucxmsuyzdetulgz-JS 5 ml PO Q4-6H PRN cold symptoms 10/07/23 2 mg-30 mg-10 mg/5 mL oral syrup #240 mL (Bromfed DM) cefdinir 300 mg capsule 300 mg PO BID #20 caps 10/07/23 fluticasone propionate 50 2 spray intranasal DAILY Allergy 10/07/23 mcg/actuation nasal symptoms #16 grams spray,suspension ondansetron 4 mg disintegrating 4 mg PO Q6H PRN nausea and 10/07/23 tablet vomiting #30 tabs hydrocodone 7.5 mg-acetaminophen See Rx Instructions .Route 10/11/23 325 mg tablet .COMPLEX PRN pain #10 tabs lorazepam 1 mg tablet 1 mg PO DAILY PRN anxiety #10 tabs 10/11/23 fluconazole 150 mg tablet 150 mg PO Q3D 2 doses #2 tabs 10/13/23 ibuprofen 800 mg tablet (IBU) 800 mg PO Q8HP PRN Moderate Pain 10/14/23 #30 tabs lidocaine HCl 2 % mucosal solution 1 applic mucous membrane QIDP PRN 10/14/23 (Lidocaine Viscous) mouth pain #100 mL phenol 1.4 % mucosal aerosol spray 4 spray mucous membrane Q4H PRN 10/14/23 (Chloraseptic Throat [place]) mouth pain #177 mL Allergies Allergy/AdvReac Type Severity Reaction Status Date / Time codeine [CODEINE] Allergy Unknown NA-NAUSEA/V Verified 10/11/23 09:43 OMITING RONDEC COUGH MED AdvReac Unknown Blister Uncoded 10/11/23 09:43 [facility] Disclaimer: The information contained in this section may have been updated after the patient was seen, as this information can be updated by other users. Medical History Dyspnea Gastroesophageal reflux disease Syncope Tobacco dependence syndrome Social History Smoking Status: Current every day smoker tobacco type: cigarettes packs per day: 3 second hand exposure: No alcohol intake: current substance use type: marijuana current occupational status: disabled Travel in the last 8 weeks: None household members: significant other housing: house current occupational exposures/hazards: No ROS Obtained: Yes All systems reviewed & no additional complaints except as documented Constitutional Constitutional: Denies chills and Denies fever(s) Eyes Eyes: Denies eye discharge ENT Ears, Nose, Mouth, and Throat: Denies dizziness, Denies dysphagia, Denies otalgia and Denies sore throat Cardiovascular Cardiovascular: Denies chest pain Respiratory Respiratory: Denies shortness of breath, Denies chest congestion, Denies cough, Denies stridor and Denies wheezing Gastrointestinal Gastrointestingal: Denies dysphagia, nausea or vomiting Musculoskeletal Musculoskeletal: Reports system reviewed and no additional complaints, except as documented and Denies arthralgias Integumentary/Breasts Skin/Breast: Denies rash Neurologic Neurologic: Denies dizziness and Denies paresthesias Allergic/Immunologic Allergic/Immunologic: Denies wheezing Physical Exam General General appearance: alert and in no apparent distress Head Head exam: atraumatic, normocephalic and normal inspection Eye Eye exam: Present normal appearance, PERRL and EOMI ENT ENT exam: Present normal exam, normal oropharynx, mucous membranes moist, TM's normal bilaterally and normal external ear exam Neck Neck exam: Present normal inspection, full ROM and trachea midline; Absent meningismus or lymphadenopathy Chest Chest inspection: Present normal inspection and symmetric chest wall rise; Absent tenderness Respiratory Respiratory exam: Present normal lung sounds bilaterally; Absent respiratory distress Cardiovascular Cardiovascular exam: Present regular rate and normal rhythm; Absent JVD Abdominal Exam Abdominal exam: Present soft and normal bowel sounds; Absent distention, tenderness or guarding Extremities Exam Extremities exam: Present normal inspection, full ROM and normal capillary refill; Absent calf tenderness Back Exam Back exam: Present normal inspection; Absent tenderness Neurological Exam Neurological exam: Present alert and oriented X3 Psychiatric Psychiatric exam: Present normal affect and normal mood Skin Skin exam: Present warm, dry, intact and normal color Lymphatic Lymphatic Findings: no adenopathy Medical Decision Making Medical Records Medical records reviewed: No I reviewed the patient's medical records. Gian Inquiry Pt receiving controlled substance: No Lab Data Lab results reviewed: Yes I reviewed the patient's lab results.
[2023-10-14 18:30] VITALS: BP 150/83; PULSE 110; RESP 19; TEMP 37.4; O2SAT 98
[2023-10-14 18:35] LABS: UTC Strep Screen (Rapid) Negative (Negative)
== END 2023-10-14 18:30 | disposition home or self-care (01) ==
PROVIDERS: Emergency Provider Nurse Practitioner Family; PCP Internal Medicine
DX: K13.79 Other lesions of oral mucosa (principal); F17.210 Nicotine dependence, cigarettes, uncomplicated; K21.9 Gastro-esophageal reflux disease without esophagitis
CPT/HCPCS: 87880; 99212; 99214; G0463

== ENCOUNTER 2023-10-20 21:10 | Outpatient (CLI) | payer OTHER, SELFPAY ==
[2023-10-20 18:28] LABS: Adenovirus,PCR Not Detected (NotDetected); Coronavirus 19, PCR Not Detected (NotDetected); Coronavirus 229E Not Detected (NotDetected); Coronavirus NL63 Not Detected (NotDetected); Coronavirus OC43 Not Detected (NotDetected); Coronovirus HKU1,PCR Not Detected (NotDetected); Human Metapneumovirus Not Detected (NotDetected); Influenza A, PCR Not Detected (NotDetected); Influenza AH1, 2009 Not Detected (NotDetected); Influenza AH1, PCR Not Detected (NotDetected); Influenza AH3,PCR Not Detected (NotDetected); Influenza B, PCR Not Detected (NotDetected); Parainfluenza 1, PCR Not Detected (NotDetected); Parainfluenza 2, PCR Not Detected (NotDetected); Parainfluenza 3, PCR Not Detected (NotDetected); Parainfluenza 4, PCR Not Detected (NotDetected); Respiratory Syncytial Virus Not Detected (NotDetected); Rhinovirus/Enterovirus Not Detected (NotDetected)
== END 2023-10-20 23:59 ==
LOC: LAB.DROPOF 21:10
PROVIDERS: PCP Family Medicine; Visit Provider Family Medicine
DX: R06.02 Shortness of breath (principal); R05.9 Cough, unspecified; R09.81 Nasal congestion
CPT/HCPCS: 87632; 87635

== ENCOUNTER 2023-12-08 19:51 | Outpatient (CLI) | payer OTHER, SELFPAY ==
[2023-12-08 18:49] LABS: Adenovirus,PCR Not Detected (NotDetected); Coronavirus 19, PCR Not Detected (NotDetected); Coronavirus 229E Not Detected (NotDetected); Coronavirus NL63 Not Detected (NotDetected); Coronavirus OC43 Not Detected (NotDetected); Coronovirus HKU1,PCR Not Detected (NotDetected); Human Metapneumovirus Not Detected (NotDetected); Influenza A, PCR Not Detected (NotDetected); Influenza AH1, 2009 Not Detected (NotDetected); Influenza AH1, PCR Not Detected (NotDetected); Influenza AH3,PCR Not Detected (NotDetected); Influenza B, PCR Not Detected (NotDetected); Parainfluenza 1, PCR Not Detected (NotDetected); Parainfluenza 2, PCR Not Detected (NotDetected); Parainfluenza 3, PCR Not Detected (NotDetected); Parainfluenza 4, PCR Not Detected (NotDetected); Respiratory Syncytial Virus Not Detected (NotDetected); Rhinovirus/Enterovirus Not Detected (NotDetected)
== END 2023-12-08 23:59 ==
LOC: LAB.DROPOF 19:51
PROVIDERS: PCP Nurse Practitioner; Visit Provider Nurse Practitioner
DX: J06.9 Acute upper respiratory infection, unspecified (principal); R06.02 Shortness of breath; R09.89 Other specified symptoms and signs involving the circulatory and respiratory systems; R06.2 Wheezing; R11.0 Nausea; Z20.828 Contact with and (suspected) exposure to other viral communicable diseases
CPT/HCPCS: 87632; 87635

== ENCOUNTER 2023-12-30 09:11 | Emergency (ER) | payer OTHER, SELFPAY ==
[2023-12-30] VITALS (10 sets, daily range): BP systolic 98–132; BP diastolic 62–90; PULSE 73–91; RESP 12–22; TEMP 36.8; O2SAT 97–99; BMI 27.4
[2023-12-30 09:27] LABS: Microscopic, Urine URINE MICROSCOPIC (MICROSCOPIC)
--- NOTE | 2023-12-30 09:33 | CT_ITS ---
FINAL REPORT CLINICAL HISTORY: severe epigastric pain COMPARISON: 10/16/2019 FINDINGS: CT OF THE ABDOMEN AND PELVIS WITH CONTRAST Axial CT images of the abdomen and pelvis were obtained after the administration of IV contrast. Coronal reformatted images were also obtained and reviewed. This study was performed with techniques to keep radiation doses as low as reasonably achievable (ALARA). Individualized dose reduction techniques using automated exposure control or adjustment of mA and/or kV according to the patient's size were employed. Abdomen: The lung bases are clear. The heart is normal in size. The liver has an unremarkable appearance, without evidence of mass or biliary ductal dilatation. Post cholecystectomy. The spleen is unremarkable. No adrenal mass is present. The pancreas has an unremarkable appearance. The kidneys are normal, without evidence of mass or hydronephrosis. The aorta is normal in caliber. There is no free fluid or adenopathy. No mass or abnormal fluid collection is seen. Pelvis: The appendix is not visualized. The urinary bladder is unremarkable. Post hysterectomy. No inflammatory process is seen. There is no evidence of mass or adenopathy. There is no evidence of bowel obstruction. IMPRESSION: No evidence of acute intra-abdominal process. Reviewed, Interpreted and Dictated by King Garcia III, MD Transcribed by Ne Palmer Authenticated and [facility]
--- NOTE | 2023-12-30 09:37 | ED_ITS ---
Discharge Plan Disposition Patient Disposition: Home, Self-Care Prescriptions Prescriptions: New omeprazole 20 mg capsule,delayed release(DR/EC) 20 mg PO DAILY 28 Days Qty: 28 0RF No Action fluticasone propionate 50 mcg/actuation spray,suspension 2 spray INTRANASAL DAILY Qty: 16 10RF Rx Instructions: each nostril daily albuterol sulfate 2.5 mg /3 mL (0.083 %) solution for nebulization 2.5 mg IH BID PRN (Reason: Shortness Of Breath) Qty: 75 5RF ondansetron HCl 4 mg tablet 4 mg PO Q8H PRN (Reason: nausea and vomiting) Qty: 20 0RF albuterol sulfate 90 mcg/actuation HFA aerosol inhaler 2 puff INHALATION Q6 PRN (Reason: Shortness Of Breath Or Wheezing) Qty: 8.5 10RF citalopram 20 mg tablet 40 mg PO DAILY Qty: 90 3RF estradiol 2 mg tablet See Rx Instructions .ROUTE .COMPLEX Qty: 30 5RF Dose Instruction: TAKE ONE TABLET BY MOUTH EVERY DAY Rx Instructions: TAKE ONE TABLET BY MOUTH EVERY DAY mirtazapine [Remeron] 15 mg tablet 15 mg PO HS PRN (Reason: sleep) Qty: 30 3RF hydroxyzine HCl 25 mg tablet 50 mg PO Q6H PRN (Reason: anxiety) Qty: 90 0RF methylprednisolone acetate [Depo-Medrol] 80 mg/mL suspension 80 mg IM ONCE Qty: 1 0RF alprazolam 1 mg tablet 1 mg PO HS PRN (Reason: sleep) Qty: 30 2RF ibuprofen 800 mg tablet 800 mg PO Q8H Qty: 90 3RF budesonide-formoterol [Symbicort] 160-4.5 mcg/actuation HFA aerosol inhaler See Rx Instructions .ROUTE .COMPLEX Qty: 10.2 10RF Dose Instruction: INHALE TWO PUFFS BY MOUTH TWICE DAILY --RINSE MOUTH AFTER USE-- Rx Instructions: INHALE TWO PUFFS BY MOUTH TWICE DAILY --RINSE MOUTH AFTER USE-- loratadine 10 mg tablet See Rx Instructions .ROUTE .COMPLEX Qty: 90 10RF Dose Instruction: TAKE ONE TABLET BY MOUTH EVERY DAY FOR ALLERGY symptoms Rx Instructions: TAKE ONE TABLET BY MOUTH EVERY DAY FOR ALLERGY symptoms cyclobenzaprine 5 mg tablet 5 mg PO TID PRN (Reason: muscle spasm) Qty: 30 0RF Referrals Follow up/Referrals: Jitendra Hartley MD [Primary Care Provider] - See instructions Activity Restrictions/Add. Instructions Additional Instructions/Restrictions: At this time it was felt you are safe to be discharged home. If new or worsening symptoms please do not hesitate to return the emergency department. You have an appointment at Dr. Flannery's office here at [facility] 4?11 at 1 PM. Please take your medication as prescribed. Clinical Impressions Clinical Impression: Abdominal pain Instructions Patient Instructions: DI for Acute Abdominal Pain Discharge ED Provider: Clifford Herrera General Adult HPI General Chief complaint: Abdominal Pain Stated complaint: abd pain Time Seen by Provider: 12/30/23 09:20 Mode of Arrival: Ambulatory Source of Information: Patient Limitations: No Limitations Description of Symptoms (Recalled from ER Triage Doc. by RN): Patient presents to ER with complaints of epigastric pain for one week. Patient states pain is sharp and intermittent, reports normal bowel movement. Denies nausea, vomiting, or fever. History of Present Illness HPI narrative: Patient is a 38-year-old female past medical history of previous cholecystectomy, previous appendectomy presents emergency department for evaluation of abdominal pain. Onset was acute, over the last week. Severe, epigastric in nature. Patient thought she was constipated and did a bowel cleanout at home with [id number] medications and symptoms are refractory. Given that they worsened over the last 48 hours with associated nonbloody vomiting she presents here for continued evaluation. Patient was recently prescribed ibuprofen 800 for pain in her lower extremities. Related Data Previous Rx's Medication Instructions Recorded albuterol sulfate 90 mcg/actuation 2 puff inhalation Q6 PRN Shortness 01/05/23 aerosol inhaler Of Breath Or Wheezing #8.5 grams citalopram 20 mg tablet 40 mg (2 x 20 mg) PO DAILY 08/05/23 Depression #90 tabs estradiol 2 mg tablet See Rx Instructions .Route 08/05/23 .COMPLEX #30 tabs budesonide-formoterol HFA 160 See Rx Instructions .Route 09/07/23 mcg-4.5 mcg/actuation aerosol .COMPLEX #10.2 grams inhaler (Symbicort) loratadine 10 mg tablet See Rx Instructions .Route 09/08/23 .COMPLEX #90 tabs albuterol sulfate 2.5 mg/3 mL 2.5 mg (3 mL) inhalation BID PRN 10/07/23 (0.083 %) solution for nebulization Shortness Of Breath #75 mL fluticasone propionate 50 2 spray intranasal DAILY Allergy 10/07/23 mcg/actuation nasal symptoms #16 grams spray,suspension cyclobenzaprine 5 mg tablet 5 mg PO TID PRN muscle spasm #30 10/22/23 tabs hydroxyzine HCl 25 mg tablet 50 mg (2 x 25 mg) PO Q6H PRN 11/11/23 anxiety #90 tabs mirtazapine 15 mg tablet (Remeron) 15 mg PO HS PRN sleep #30 tabs 11/11/23 ondansetron HCl 4 mg tablet 4 mg PO Q8H PRN nausea and 12/08/23 vomiting #20 tabs alprazolam 1 mg tablet 1 mg PO HS PRN sleep #30 tabs 12/23/23 ibuprofen 800 mg tablet 800 mg PO Q8H #90 tabs 12/23/23 omeprazole 20 mg capsule,delayed 20 mg PO DAILY peptic ulcer 4 12/30/23 release weeks #28 caps Allergies Allergy/AdvReac Type Severity Reaction Status Date / Time codeine [CODEINE] Allergy Unknown NA-NAUSEA/V Verified 12/23/23 15:16 OMITING cefdinir AdvReac Intermediate Blister Uncoded 12/23/23 15:16 RONDEC COUGH MED AdvReac Unknown Blister Uncoded 12/23/23 15:16 [facility] Disclaimer: The information contained in this section may have been updated after the patient was seen, as this information can be updated by other users. Medical History Gastroesophageal reflux disease Syncope Tobacco dependence syndrome Dyspnea Social History Smoking Status: Current every day smoker tobacco type: cigarettes packs per day: 3 second hand exposure: No alcohol intake: current substance use type: marijuana current occupational status: disabled Travel in the last 8 weeks: None household members: significant other housing: house current occupational exposures/hazards: No ROS Obtained: Yes Systems reviewed as appropriate & no additional complaints except as documented Physical Exam General General appearance: alert and in no apparent distress Head Head exam: atraumatic and normocephalic Eye Eye exam: Present PERRL and EOMI ENT ENT exam: Present mucous membranes moist Neck Neck exam: Present normal inspection Chest Chest inspection: Present normal inspection and symmetric chest wall rise Respiratory Respiratory exam: Present normal lung sounds bilaterally; Absent respiratory distress Cardiovascular Cardiovascular exam: Present regular rate and normal rhythm Abdominal Exam Abdominal exam: Present soft, tenderness (Epigastric) and guarding (Voluntary) Extremities Exam Extremities exam: Present normal inspection Neurological Exam Neurological exam: Present alert Psychiatric Psychiatric exam: Present normal affect Skin Skin exam: Present warm and dry Medical Decision Making Gian Inquiry Pt receiving controlled substance: No Vital Signs: 12/30/23 09:12 12/30/23 10:00 12/30/23 10:28 Temperature 98.2 F Temperature Source Oral Pulse Rate 73 78 Pulse Rate [Right] 91 H Respiratory Rate 18 Blood Pressure 116/72 113/71 Blood Pressure [Right Arm] 132/90 Blood Pressure Mean Blood Pressure Mean [Right Arm] 104 Blood Pressure Source [Right Arm] Automatic Cuff 02 Sat by Pulse Oximetry 99 97 97 Oxygen Delivery Method Room Air 12/30/23 11:30 12/30/23 12:00 12/30/23 12:30 Temperature Temperature Source Pulse Rate 78 Pulse Rate [Right] Respiratory Rate 22 Blood Pressure 102/73 L 121/76 98/70 L Blood Pressure [Right Arm] Blood Pressure Mean 78 86 79 Blood Pressure Mean [Right Arm] Blood Pressure Source [Right Arm] 02 Sat by Pulse Oximetry Oxygen Delivery Method 12/30/23 13:01 12/30/23 13:30 12/30/23 14:00 Temperature Temperature Source Pulse Rate Pulse Rate [Right] Respiratory Rate 22 22 12 Blood Pressure 102/66 L 107/67 L 98/62 L Blood Pressure [Right Arm] Blood Pressure Mean 74 78 Blood Pressure Mean [Right Arm] Blood Pressure Source [Right Arm] 02 Sat by Pulse Oximetry Oxygen Delivery Method Lab Data Lab Results 12/30/23 09:15: Urine Color Yellow, Urine Appearance Clear, Urine pH 7.0, Ur Specific [place] 1.020, Urine Protein Negative, Urine Glucose (UA) Negative, Urine Ketones Negative, Urine Blood Negative, Urine Nitrate Negative, Urine Bilirubin Negative, Urine Urobilinogen 0.2, Ur Leukocyte Esterase Negative, Urine RBC None, Urine WBC Occasional, Ur Squamous Epith Cells 3-5, Urine Bacteria Trace 12/30/23 09:24: SARS-CoV-2 (PCR) Not detected, Influenza A Untype (PCR) Not detected, Influenza Type B (PCR) Not detected 12/30/23 09:40: WBC 8.8, RBC 4.47, Hgb 13.6, Hct 42.5, MCV 95.0, MCH 30.4, MCHC 32.0, RDW 14.3, Plt Count 421, MPV 7.6, Neut % (Auto) 37.8, Lymph % (Auto) 52.4 H, [place] % (Auto) 5.3, Eos % (Auto) 3.7, Baso % (Auto) 0.8, Neut # (Auto) 3.3, L ymph # (Auto) 4.6 H, [place] # (Auto) 0.5, Eos # (Auto) 0.3, Baso # (Auto) 0.1, Total Counted 100, Neutrophils % (Manual) 39 L, Lymphocytes % (Manual) 49, M onocytes % (Manual) 12 H, Platelet Estimate Normal, RBC Morphology Normal, Sodium 140, Potassium 3.9, Chloride 107, Carbon Dioxide 32 H, Anion Gap 4.9 L, BUN 14, Creatinine 0.60, Estimated Creat Clear 144, Estimated GFR 113, Est GFR ( Amer) 137, Glucose 93, Calcium 9.4, Total Bilirubin 0.3, AST 49 H, ALT 47, Alkaline Phosphatase 77, Total Protein 7.3, Albumin 4.1, Globulin 3.2, Albumin/Globulin Ratio 1.3, Lipase 151, Serum HCG, Qual Negative 12/30/23 09:40 12/30/23 09:40 Orders (Tests/Meds): ED MEDICATIONS Generic Name Dose Route Start Last Admin Trade Name Freq PRN Reason Stop Dose Admin Sodium Chloride 10 ml 12/30/23 11:06 12/30/23 11:07 Sodium Chloride 0.9% 10ml Syr (Rad Only) IV 01/29/24 11:05 10 ml NEEDED PRN Administration Maintain IV Site Discontinued Medications Generic Name Dose Route Start Last Admin Trade Name Freq PRN Reason Stop Dose Admin Acetaminophen 1,000 mg 12/30/23 09:24 12/30/23 09:45 Acetaminophen 1,000mg/100ml Vial IV 12/30/23 09:25 1,000 mg ONCE ONE Administration Belladonna Alkaloids 60 ml 12/30/23 09:36 12/30/23 09:46 Belladonna Alkaloids 60 Ml Ml PO 12/30/23 09:37 60 ml ONCE ONE Administration Diphenhydramine HCl 25 mg 12/30/23 12:19 12/30/23 12:27 Diphenhydramine 50mg/Ml Vial IV 12/30/23 12:20 Not Given ONCE ONE Droperidol 2.5 mg 12/30/23 12:10 12/30/23 13:02 Droperidol 5mg/2ml Vial IV 12/30/23 12:11 2.5 mg ONCE ONE Administration Lactated Ringer's 1,000 mls @ 999 mls/hr 12/30/23 09:25 12/30/23 09:46 Lactated Ringer's 1000 Ml Bag IV 12/30/23 10:25 999 mls/hr .Q1H1M ONE Administration Iopamidol 75 ml 12/30/23 11:06 12/30/23 11:07 Iopamidol-370 (76%);100ml Bottle IV 12/30/23 11:07 75 ml ONCE ONE Administration Ketorolac Tromethamine 30 mg 12/30/23 09:24 12/30/23 09:46 Ketorolac 30mg/Ml Vial IV 12/30/23 09:25 30 mg ONCE ONE Administration Morphine Sulfate 4 mg 12/30/23 09:36 12/30/23 09:46 Morphine 4mg/Ml Syringe IV 12/30/23 09:37 4 mg ONCE ONE Administration Morphine Sulfate 4 mg 12/30/23 10:32 12/30/23 10:37 Morphine 4mg/Ml Syringe IV 12/30/23 10:33 4 mg ONCE ONE Administration Ondansetron HCl 4 mg 12/30/23 09:47 12/30/23 09:48 Ondansetron 4mg/2ml Vial IV 12/30/23 09:48 4 mg ONCE ONE Administration ORDERS Category Date Time Status CT abdomen pelvis w con Stat Cat Scan 12/30/23 09:33 Completed CBC w/Auto Diff [Complete Blood Count Auto Diff] Stat Lab 12/30/23 09:40 Completed CMP [Comprehensive Metabolic Panel] Stat Lab 12/30/23 09:40 Completed Lipase Stat Lab 12/30/23 09:40 Completed Rapid PCR Covid and Flu A/B Stat Lab 12/30/23 09:24 Completed Serum [HCG Qualitative, Serum] Stat Lab 12/30/23 09:40 Completed UA [Urinalysis and Microscopic] Stat Lab 12/30/23 09:15 Completed ECG Data Tracing #1: Independently interpreted by me, rate is 70, rhythm is regular, axis normal, no ST elevation in anatomical contiguous leads, QTc 424. Medical Decision Narrative: In summary patient is a 38-year-old female past medical history described above presents emergency department for evaluation of epigastric pain. Patient is hemodynamically stable nontoxic-appearing upon arrival, afebrile. Differential diagnosis includes pancreatitis, mass, peptic ulcer disease, among others. Workup will be conducted with hematologic labs, CT abdomen pelvis IV contrast, urinalysis. Initial inventions include crystalloid bolus, Zofran, multimodal pain control, GI cocktail. Initial workup reviewed by me, hematologic labs are nonactionable, no leukocytosis, no GRANT or critical electrolyte abnormality. Urinalysis interpreted by me and not consistent with infection. Upon repeat evaluation patient had persistent pain for which repeat medication was dosed. CT imaging shows no acute intra-abdominal process. Upon repeat evaluation patient had persistent pain for which droperidol was given. Given this constellation of findings, the fact that patient takes chronic ibuprofen at baseline my suspicion for peptic ulcer disease is high. Upon repeat evaluation patient was resting comfortably in bed. Patient underwent a period of observation after droperidol was administered. Upon repeat evaluation patient continued to be hemodynamically stable, tolerating p.o. with improved symptoms at bedside and is appropriate for outpatient management. Patient was arranged to see Dr. Flannery in the coming week. Critical Care Critical Care Time Critical Care Time: No
[2023-12-30 09:43] LABS: Appearance,Urine CLEAR (Clear); Bilirubin,Urine Negative (Negative); Blood, Urine Negative (Negative); Color,Urine YELLOW (Yellow); Glucose,Urine (UA) Negative (Negative); Ketones,Urine Negative (Negative); Leukocyte Esterase,Urine Negative (Negative); Nitrate,Urine Negative (Negative); Protein,Urine Negative (Negative); Urobilinogen,Urine 0.2 EU/dl (0.2)
[2023-12-30] MEDS: ACETAMINOPHEN 1,000MG/100ML VIAL 1000 MG IV (09:45)
[2023-12-30] MEDS: LACTATED RINGERS 1000ML 1,000 ML 999 ML IV (09:46)
[2023-12-30] MEDS: KETOROLAC 30MG/ML VIAL 30 MG IV (09:46)
[2023-12-30] MEDS: MORPHINE 4MG/ML SYRINGE 4 MG IV ×2 (09:46→10:37)
[2023-12-30] MEDS: BELLADONNA ALKALOIDS 60 ML ML PO (09:46)
[2023-12-30 09:47] LABS: Coronavirus 19, PCR Not Detected (NotDetected); Influenza A, PCR Not Detected (NotDetected); Influenza B, PCR Not Detected (NotDetected)
[2023-12-30] MEDS: ONDANSETRON 4MG/2ML VIAL 4 MG IV (09:48)
--- NOTE | 2023-12-30 09:48 | PC.NURSE ---
Lab aware of HCG add on
[2023-12-30 10:01] LABS: Bacteria,Urine Trace /lpf; WBC,Urine Occasional #/hpf (0-3)
[2023-12-30 10:02] LABS: HCG Qualitative, Serum Negative (Negative)
[2023-12-30 10:04] LABS: Alanine Aminotransferase 47 U/L (12-78); Albumin Level 4.1 g/dl (3.5-5.0); Albumin/Globulin Ratio 1.3 (1.1-1.8); Alkaline Phosphatase 77 U/L (38-126); Anion Gap 4.9 mEq/L (5-15); Aspartate Amino Transferase 49 U/L (14-36); Bilirubin,Total 0.3 mg/dl (0.2-1.3); Blood Urea Nitrogen 14 mg/dl (7-17); Calcium 9.4 mg/dl (8.4-10.2); Carbon Dioxide 32 mmol/L (22.0-30.0); Chloride 107 mmol/L (98-107); Creatinine Clearance Estimated 144 mL/min (50-200); Estimated Glomerular Filt Rate 113 ml/min (>60); GFR (African American) 137 ML/MIN (>60); Globulin 3.2 g/dL (1.3-3.2); Glucose 93 mg/dl (74-100); Lipase 151 U/L (23-300); Potassium 3.9 mmoL/L (3.5-5.1); Sodium 140 mmol/L (136-145); Total Protein,Serum 7.3 g/dl (6.3-8.2)
--- NOTE | 2023-12-30 10:28 | PC.NURSE ---
pt to CT
[2023-12-30] MEDS: IOPAMIDOL-370 (76%);100ML BOTTLE 75 ML IV (11:07)
[2023-12-30] MEDS: SODIUM CHLORIDE 0.9% 10ML SYR (RAD ONLY) 10 ML IV (11:07)
--- NOTE | 2023-12-30 11:23 | PC.NURSE ---
CALLED LAB TO CHECK ON CBC. SHE STATED IT WOULD BE 5 MINUTES. ER MD NOTIFIED.
[2023-12-30 11:28] LABS: Basophils # 0.1 K/mm3 (0-0.2); Basophils % 0.8 % (0.1-2.0); Eosinophils # 0.3 K/mm3 (0.0-0.4); Eosinophils % 3.7 % (0.1-12.0); Hematocrit 42.5 % (37.0-47.0); Hemoglobin 13.6 g/dL (12.2-16.2); Lymphocytes # 4.6 K/mm3 (0.7-4.5); Lymphocytes % 52.4 % (10-50); Mean Corpuscular Hemoglobin 30.4 pg (27.0-31.2); Mean Platelet Volume 7.6 fl (7.4-10.4); Monocytes # 0.5 K/mm3 (0.1-1.0); Monocytes % 5.3 % (1.7-9.3); Neutrophils # 3.3 K/mm3 (1.8-7.8); Neutrophils % 37.8 % (37.0-80.0); Platelet Count 421 K/mm3 (142-424); Red Blood Count 4.47 M/mm3 (4.20-5.40); Red Cell Distribution Width 14.3 % (11.5-17.5); White Blood Count 8.8 K/mm3 (4.8-10.8)
[2023-12-30 11:33] LABS: MANUAL DIFFERENTIAL MANUAL DIFFERENTIAL (MANUAL DIFF)
--- NOTE | 2023-12-30 11:43 | PC.NURSE ---
pt requesting more pain medication. MD notified. informed pt MD waiting on CT scan report before more medication can be administered.
--- NOTE | 2023-12-30 12:03 | PC.NURSE ---
rounded on pt who states she is still having pain, aware
--- NOTE | 2023-12-30 12:15 | ECG_ITS ---
APPROVED REPORT Exam: Resting ECG HR:70 bpm ECG Measurements Heart Rate 70 AXES WA 187 P 49 QRSd 112 QRS 50 QT 404 T 38 QTc 424 Conclusion SINUS RHYTHM INCOMPLETE RIGHT BUNDLE BRANCH BLOCK [90+ ms QRS DURATION, TERMINAL R IN V1/V2, 40+ ms S IN I/aVL/V4/V5/V6] BORDERLINE ECG Electronically signed by : DIONICIO HSU, 12/30/2023 15:20:35
--- NOTE | 2023-12-30 12:26 | PC.NURSE ---
this nurse at the bedside explaining droperidol obs time. pt states she does not want medication and states this medication is not guaranteed to take my pain away and i am not laying here another 2hours. i would rather lay at home in pain. notified.
--- NOTE | 2023-12-30 12:39 | PC.NURSE ---
pt states that if she isnt getting anything other than the medicine ordered at this time, she wanted to leave cause she can go home and hurt and lay in pain, states that she wants to see the doctor to get a game plan, aware
[2023-12-30 12:58] LABS: Lymphocytes % 49 % (10-50); Monocytes % 12 % (2-9); Neutrophils % 39 % (42-76); Total Cells Counted 100
[2023-12-30 13:00] LABS: Platelet Estimate Normal; RBC Morphology Normal
[2023-12-30] MEDS: droPERidol 5MG/2ML VIAL 2.5 MG IV (13:02)
--- NOTE | 2023-12-30 13:02 | PC.NURSE ---
after speaking to , pt decided she wanted droperidol. notified.
--- NOTE | 2023-12-30 13:36 | PC.NURSE ---
pt sleeping at this time
--- NOTE | 2023-12-30 14:15 | PC.NURSE ---
pt states she wants to leave AMA upon waking up. explained the risks associated with leaving. pt was given appointment with general surgery. IV d/c at this time. notified.
== END 2023-12-30 14:15 | disposition home or self-care (01) ==
PROVIDERS: Emergency Provider Emergency Medicine; PCP Family Medicine
DX: R10.13 Epigastric pain (principal); K21.9 Gastro-esophageal reflux disease without esophagitis; F17.210 Nicotine dependence, cigarettes, uncomplicated
CPT/HCPCS: 74177; 80053; 81001; 83690; 84703; 85007; 85025; 87636; 93005; 96361; 96374; 96375; 96376; 99285; J0131; J1790; J2405; Q9967

== ENCOUNTER 2024-03-01 11:22 | Emergency (ER) | payer OTHER, SELFPAY ==
[2024-03-01 11:23] VITALS: BP 123/77; PULSE 82; RESP 16; TEMP 36.7; O2SAT 98; BMI 27.4
[2024-03-01 11:30] VITALS: BP 120/75; PULSE 65; O2SAT 96
--- NOTE | 2024-03-01 11:42 | PC.NURSE ---
DR KAY AT BEDSIDE
--- NOTE | 2024-03-01 11:47 | XR_ITS ---
FINAL REPORT CLINICAL HISTORY: minor crush injury, anterior right shoulder pain COMPARISON: None FINDINGS: RIGHT SHOULDER: 3 views of the right shoulder were obtained. There is no acute fracture or dislocation. The joint spaces are intact. There is no soft tissue abnormality. IMPRESSION: No acute fracture Reviewed, Interpreted and Dictated by King Garcia III, MD Transcribed by Ne Palmer Authenticated and [facility]
--- NOTE | 2024-03-01 11:47 | XR_ITS ---
FINAL REPORT CLINICAL HISTORY: minor crush injury, anterior right humerus pain COMPARISON: None FINDINGS: Two views of the right humerus were obtained. There is no acute fracture or dislocation. The joint spaces are well preserved. There is no acute soft tissue abnormality. IMPRESSION: No acute abnormality identified. Reviewed, Interpreted and Dictated by King Garcia III, MD Transcribed by Ne Palmer Authenticated and [facility]
[2024-03-01] MEDS: METHOCARBAMOL 500MG TABLET 750 MG PO (11:58)
[2024-03-01] MEDS: LIDOCAINE 5% TRANSDERMAL PATCH 1 EACH TP (11:58)
--- NOTE | 2024-03-01 12:01 | HMH.EDGENADL ---
Discharge Plan Disposition Patient Disposition: Home, Self-Care Chief Complaint: PAIN Prescriptions Prescriptions: No Action fluticasone propionate 50 mcg/actuation spray,suspension 2 spray INTRANASAL DAILY Qty: 16 10RF Rx Instructions: each nostril daily albuterol sulfate 2.5 mg /3 mL (0.083 %) solution for nebulization 2.5 mg IH BID PRN (Reason: Shortness Of Breath) Qty: 75 5RF ondansetron HCl 4 mg tablet 4 mg PO Q8H PRN (Reason: nausea and vomiting) Qty: 20 0RF cetirizine 10 mg tablet 10 mg PO DAILY Qty: 90 3RF montelukast 10 mg tablet 10 mg PO DAILY Qty: 90 3RF albuterol sulfate 90 mcg/actuation HFA aerosol inhaler 2 puff INHALATION Q6 PRN (Reason: Shortness Of Breath Or Wheezing) Qty: 8.5 10RF budesonide-formoterol [Symbicort] 160-4.5 mcg/actuation HFA aerosol inhaler See Rx Instructions .ROUTE .COMPLEX Qty: 10.2 10RF Dose Instruction: INHALE TWO PUFFS BY MOUTH TWICE DAILY --RINSE MOUTH AFTER USE-- Rx Instructions: INHALE TWO PUFFS BY MOUTH TWICE DAILY --RINSE MOUTH AFTER USE-- citalopram 20 mg tablet 40 mg PO DAILY Qty: 90 3RF estradiol 2 mg tablet See Rx Instructions .ROUTE .COMPLEX Qty: 30 5RF Dose Instruction: TAKE ONE TABLET BY MOUTH EVERY DAY Rx Instructions: TAKE ONE TABLET BY MOUTH EVERY DAY mirtazapine [Remeron] 15 mg tablet 15 mg PO HS PRN (Reason: sleep) Qty: 30 3RF methylprednisolone acetate [Depo-Medrol] 80 mg/mL suspension 80 mg IM ONCE Qty: 1 0RF ibuprofen 800 mg tablet 800 mg PO Q8H Qty: 90 3RF alprazolam 1 mg tablet 1 mg PO HS PRN (Reason: sleep) Qty: 30 3RF metformin 500 mg tablet 500 mg PO BID Qty: 180 3RF silver sulfadiazine 1 % cream 1 applic topical BID Qty: 400 1RF Rx Instructions: apply a 1.5 mm thickness cyclobenzaprine 5 mg tablet 5 mg PO TID PRN (Reason: muscle spasm) Qty: 30 0RF hydroxyzine HCl 25 mg tablet 50 mg PO Q6H PRN (Reason: anxiety) Qty: 90 0RF omeprazole 20 mg capsule,delayed release(DR/EC) 20 mg PO DAILY 28 Days Qty: 28 0RF Referrals Follow up/Referrals: Jitendra Hartley MD [Primary Care Provider] - See instructions Activity Restrictions/Add. Instructions Additional Instructions/Restrictions: Follow-up with your family doctor regarding this visit to the emergency department. Take Tylenol 1000 mg every 6 hours (4 times daily) and ibuprofen 400 mg every 6 hours (4 times daily) as needed with food and water to prevent GI upset and kidney damage. Clinical Impressions Clinical Impression: Axillary neuropathy, Crushing injury of right shoulder Discharge ED Provider: [facility] HPI General Chief complaint: PAIN Stated complaint: WC-Pain in L shoulder and arm Time Seen by Provider: 03/01/24 11:41 Mode of Arrival: Ambulatory Source of Information: Patient Limitations: No Limitations Description of Symptoms (Recalled from ER Triage Doc. by RN): PT REPORTS RIGHT HAND PAIN, AND SHOULDER INJURY THAT OCCURRED AT WORK YESTERDAY. MOVING A HEAVY CART, HAND BECAME TRAPPED BETWEEN CART AND DOOR. REPORTS TINGLING FROM ELBOW TO FINGER TIPS. HAS TAKEN IBUPROFEN WITHOUT RELIEF History of Present Illness HPI narrative: Please note that above description of symptoms, in this electronic medical record under categorization of recalled from ER triage doctor by RN are reflective of an initial nursing assessment, however, is not reflective of my full history and physical exam that was personally taken and clarified. Consequentially, this preceding description of symptoms, which may include the patient's categorized chief complaint in the EMR, do not reflect my personal clinical impression, and the ultimate description of history of present illness and patient stated complaints should be deferred to this section of the note. Unless stated otherwise or congruent with this section of the note, additional signs, symptoms, or incongruence should be interpreted as inaccurate with my clinical impression. Related Data Previous Rx's Medication Instructions Recorded citalopram 20 mg tablet 40 mg (2 x 20 mg) PO DAILY 08/05/23 Depression #90 tabs estradiol 2 mg tablet See Rx Instructions .Route 08/05/23 .COMPLEX #30 tabs albuterol sulfate 2.5 mg/3 mL 2.5 mg (3 mL) inhalation BID PRN 10/07/23 (0.083 %) solution for nebulization Shortness Of Breath #75 mL fluticasone propionate 50 2 spray intranasal DAILY Allergy 10/07/23 mcg/actuation nasal symptoms #16 grams spray,suspension cyclobenzaprine 5 mg tablet 5 mg PO TID PRN muscle spasm #30 10/22/23 tabs mirtazapine 15 mg tablet (Remeron) 15 mg PO HS PRN sleep #30 tabs 11/11/23 ondansetron HCl 4 mg tablet 4 mg PO Q8H PRN nausea and 12/08/23 vomiting #20 tabs ibuprofen 800 mg tablet 800 mg PO Q8H #90 tabs 12/23/23 omeprazole 20 mg capsule,delayed 20 mg PO DAILY peptic ulcer 4 12/30/23 release weeks #28 caps albuterol sulfate 90 mcg/actuation 2 puff inhalation Q6 PRN Shortness 01/13/24 aerosol inhaler Of Breath Or Wheezing #8.5 grams budesonide-formoterol HFA 160 See Rx Instructions .Route 01/13/24 mcg-4.5 mcg/actuation aerosol .COMPLEX #10.2 grams inhaler (Symbicort) cetirizine 10 mg tablet 10 mg PO DAILY #90 tabs 01/13/24 montelukast 10 mg tablet 10 mg PO DAILY #90 tabs 01/13/24 alprazolam 1 mg tablet 1 mg PO HS PRN sleep #30 tabs 01/28/24 metformin 500 mg tablet 500 mg PO BID #180 tabs 01/28/24 silver sulfadiazine 1 % topical 1 applic topical BID #400 grams 01/31/24 cream hydroxyzine HCl 25 mg tablet 50 mg (2 x 25 mg) PO Q6H PRN 02/07/24 anxiety #90 tabs Allergies Allergy/AdvReac Type Severity Reaction Status Date / Time codeine [CODEINE] Allergy Unknown NA-NAUSEA/V Verified 03/01/24 10:25 OMITING cefdinir AdvReac Intermediate Blister Uncoded 03/01/24 10:25 [facility] AdvReac Unknown Blister Uncoded 03/01/24 10:25 [facility] Disclaimer: The information contained in this section may have been updated after the patient was seen, as this information can be updated by other users. Medical History Allergic rhinitis Gastroesophageal reflux disease Syncope Tobacco dependence syndrome Dyspnea Social History Smoking Status: Current every day smoker tobacco type: cigarettes packs per day: 3 second hand exposure: No alcohol intake: current alcohol intake frequency: holidays/special occasions only substance use type: marijuana current occupational status: disabled Travel in the last 8 weeks: None household members: significant other housing: house current occupational exposures/hazards: No ROS Obtained: Yes All systems reviewed & no additional complaints except as documented Physical Exam General General appearance: alert and in no apparent distress Head Head exam: atraumatic and normocephalic Eye Eye exam: Present normal appearance, PERRL and EOMI ENT ENT exam: Present mucous membranes moist Neck Neck exam: Present normal inspection, full ROM and trachea midline Respiratory Respiratory exam: Absent respiratory distress, wheezes, stridor, accessory muscle use or prolonged expiratory phase Cardiovascular Cardiovascular exam: Present normal rhythm Abdominal Exam Abdominal exam: Present soft; Absent distention, tenderness, guarding, rebound or rigidity Extremities Exam Extremities exam: Present other (Tenderness and hyperalgesia right upper extremity anterior shoulder and anterior humerus. No outward signs of injury. Neurovascular intact.); Absent edema Neurological Exam Neurological exam: Present alert, oriented X3, CN II-XII intact and normal gait; Absent motor sensory deficit Skin Skin exam: Present warm and dry; Absent diaphoresis or erythema Medical Decision Making Medical Records Medical records reviewed: Yes I reviewed the patient's medical records. Gian Inquiry Pt receiving controlled substance: No Gian was queried for this patient: No Vital Signs: 03/01/24 11:23 03/01/24 11:30 03/01/24 12:44 Temperature 98.0 F Temperature Source Oral Pulse Rate 65 69 Pulse Rate [Radial] 82 Respiratory Rate 16 Blood Pressure 120/75 126/72 Blood Pressure [Left Arm] 123/77 Blood Pressure Mean [Left Arm] 92 Blood Pressure Source Automatic Cuff Automatic Cuff Blood Pressure Source [Left Arm] Automatic Cuff Blood Pressure Position Sitting Sitting Blood Pressure Position [Left Arm] Sitting 02 Sat by Pulse Oximetry 98 96 98 Oxygen Delivery Method Room Air Room Air Room Air Orders (Tests/Meds): ED MEDICATIONS Generic Name Dose Route Start Last Admin Trade Name Freq PRN Reason Stop Dose Admin Acetaminophen 1,000 mg 03/01/24 13:06 Acetaminophen 500mg Tab PO 03/01/24 13:07 ONCE ONE Ibuprofen 600 mg 03/01/24 13:06 Ibuprofen 600 Mg Tablet PO 03/01/24 13:07 ONCE ONE Discontinued Medications Generic Name Dose Route Start Last Admin Trade Name Carol PRN Reason Stop Dose Admin Lidocaine 1 each 03/01/24 11:47 03/01/24 11:58 Lidocaine 5% Transdermal Patch TP 03/01/24 11:48 1 each ONCE ONE Administration Methocarbamol 750 mg 03/01/24 11:46 03/01/24 11:58 Methocarbamol 500mg Tablet PO 03/01/24 11:47 750 mg ONCE ONE Administration ORDERS Category Date Time Status Humerus XR right [XR humerus RT] Stat Exams 03/01/24 11:47 Taken Shoulder XR right miminum 2 views [XR shoulder RT min Exams 03/01/24 11:47 Taken 2V] Stat Medical Decision Narrative: 38-year-old female no relevant medical history presenting with right upper extremity injury. She states that she was at work yesterday when she was pushing around a cart of 200 to 300 pounds of soft drinks. Moving at slow speed, crushed her between door frame and cart. Another worker had to help her get it off. Crushed her right shoulder, since that time, she has had progressively worsening pain in her right upper extremity that radiates down into her right hand. Associate with numbness and tingling in her right hand. States that her hand is so numb she is unable to hold a cigarette. Took 800 mg ibuprofen, this did not help at all. Took Tylenol as well, this was without relief. Pain is reportedly severe. Patient on phone on initial evaluation. History was obtained via conversation with patient. On arrival, patient hemodynamically stable, alert, oriented x4, appropriate, GCS 15, moving all extremities spontaneously, pupils equal and reactive to light. Full physical exam performed and significant for right upper extremity tenderness to the clavicle and anterior humerus. No outward signs of injury. Neurovascular intact. Patient not ranging shoulder due to reported tenderness. She is on her cell phone on initial evaluation. Differential includes sprain, strain, minor MSK injury, neuropraxia, among others. Patient was given Robaxin, lidocaine patch for symptomatic management and correction of underlying abnormalities. Independent interpretation of imaging demonstrates no acute bony abnormality. On reevaluation, patient still complaining of pain, lidocaine patch, Tylenol, Motrin given. Because patient at baseline without signs or symptoms of clinical decompensation, deemed appropriate for discharge. Results were relayed to patient who voiced understanding and were agreeable to outpatient management and follow up. I discussed my clinical impression with patient and answered all questions. At this time, the evidence for any other entities in the differential is insufficient to warrant any further testing or ED observation. This was explained as well. Advisory was given that persistent or worsening symptoms require further evaluation. I confirmed the understanding of this discussion. Derrick Boat Captain disclaimer Much of this encounter note is an electronic produce team lead spoken language to printed text. Electronic produce team lead of the spoken language may permit errors. Although I have reviewed the note, some errors may still exist. Critical Care Critical Care Time Critical Care Time: No
--- NOTE | 2024-03-01 12:04 | PC.NURSE ---
PT TO XR
[2024-03-01 12:44] VITALS: BP 126/72; PULSE 69; O2SAT 98
--- NOTE | 2024-03-01 12:58 | PC.NURSE ---
ROUNDED ON PT, C/O INCREASED PAIN AND NAUSEA. WILL NOTIFY MD. CALL LIGHT WITHIN REACH
--- NOTE | 2024-03-01 13:14 | PC.WOUNDNOTE ---
DR KAY AT BEDSIDE TO UPDATE PT
[2024-03-01 13:30] VITALS: BP 114/79; PULSE 65; RESP 18; TEMP 36.6; O2SAT 96
[2024-03-01] MEDS: IBUPROFEN 600 MG TABLET PO (13:30)
[2024-03-01] MEDS: ACETAMINOPHEN 500MG TAB 1000 MG PO (13:30)
== END 2024-03-01 13:30 | disposition home or self-care (01) ==
PROVIDERS: Emergency Provider Emergency Medicine; PCP Family Medicine
DX: S47.1XXA Crushing injury of right shoulder and upper arm, initial encounter (principal); G56.91 Unspecified mononeuropathy of right upper limb; F17.210 Nicotine dependence, cigarettes, uncomplicated; K21.9 Gastro-esophageal reflux disease without esophagitis; W23.2XXA Caught, crushed, jammed or pinched between a moving and stationary object, initial encounter
CPT/HCPCS: 73030; 73060; 99283

== ENCOUNTER 2024-05-12 10:00 | Outpatient (RCR) | payer OTHER, SELFPAY ==
--- NOTE | 2024-05-01 11:48 | HMH.OTOPEV ---
OT Inpatient Evaluation Rehab OT Outpatient Eval Start: 05/01/24 11:38 Freq: Status: Active Protocol: Document 05/01/24 11:38 RMSYL (Rec: 05/01/24 11:47 [facility] [id number][facility] E-signed By Eliazar Espitia, OT Outpatient Therapy Subjective History Subjective History Pt is a 38 year old female who reports to therapy for initial evaluation to right shoulder. Pt injured shoulder at work on February 29, 2024. Pt was pushing a heavy cart full of pop when the cart tipped over and she tried to catch the cart with right arm. Since this injury, pt has had constant pain at right shoulder with decreased AROM. Pt is right hand dominant. At this time, pt is not working. Pt was evaluated by ortho who referred her to OT. She has not had a MRI completed, but has had an X- ray with no acute findings. Pt does demonstrate with decreased AROM and strength at right shoulder. Pt will continue to be seen for OT services in order to address all right shoulder deficits. New diagnosis of cancer in past 12 No months? Chief Complaint Pain,Stiff,Weakness Symptom Type Ache,Throb,Sharp,Dull Symptoms Relieved By Nothing Symptoms Aggravated By Physical Activity,Twisting Prior Functional Limitations None Current Functional Limitations Reaching,Lifting,Housework, Dressing,Driving,Sleeping Symptom Description Constant but Variable Level of pain today (0-10) 7 Pain scale - at its best (0-10) 5 Pain scale - at its worst (0-10) 10 Shoulder/Elbow Eval Shoulder Objective Measurements Shoulder ROM Right Shoulder Abduction Active Range of 75 degrees Motion (degrees) Shoulder Flexion Active Range of Motion 85 degrees (degrees) Query Text: Shoulder External Rotation Active Range 55 degrees of Motion (degrees) Shoulder Internal Rotation Active Range 55 degrees of Motion (degrees) Shoulder MMT Shoulder Abduction Strength Grade 3+ Fair+ Shoulder Extension Strength Grade 3+ Fair+ Shoulder Flexion Strength Grade 3+ Fair+ Shoulder External Rotation Strength 3+ Fair+ Grade Shoulder Internal Rotation Strength 3+ Fair+ Grade Shoulder Strength Patient Testing Sitting Position Shoulder Special Tests impingement sign present shoulder exam right standard Shoulder Empty Can (Supraspinatus) Test Positive Right Shoulder Mckinley-Pan Impingement Positive Right Test Elbow Objective Measurements QuickDASH Activities Please rate your ability to do the following activities in the last week by selecting the number below the appropriate response. 1. Open a tight or new jar. Unable 2. Do heavy contract project manager (e.g., wash Unable roberto, floors). 3. Carry a shopping bag or briefcase. Severe difficulty 4. Wash your back. Unable 5. Use a knife to cut food. No difficulty 6. Recreational activities in which you Unable take some force or impact through your arm, shoulder, or hand (e.g., golf, hammering, tennis, etc.). 7. During the past week, to what extent Extremely has your arm, shoulder or hand problem interfered with your normal social activities with family, friends, neighbors or groups? 8. During the past week, were you Unable limited in your work or other regular daily activites as a result of your arm, shoulder or hand problem? 9. Arm, shoulder or hand pain. Severe 10. Tingling (pins and needles) in your Moderate arm, shoulder or hand. 11. During the past week, how much Severe difficulty difficulty have you had sleeping because of the pain in your arm, shoulder or hand? Quick DASH 46 Work Module (optional) The following questions ask about the impact of your arm, shoulder or hand problem on your ability to work (including homemaking if that is your main work role). 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 Yes 1. Using your usual technique for your Unable work? 2. Doing your usual work because of arm, Unable shoulder or hand pain? 3. Doing your work as well as you would Severe difficulty like? 4. Spending your usual amount of time Unable doing your work? Quick Dash Work Module Score 19 OT Outpatient Assessment Impairments Problems/Impairments Palpation Tenderness,Impaired Range of Motion,Impaired Strength,Impaired Endurance, Impaired Lifting,Impaired Dressing,Impaired Shower/ Bathing,Impaired Household Care,Impaired Recreational Activities,Impaired Work Activities,Subjective C/O Pain Prognosis Rehab Potential Good Clinical Impression Consistent with Diagnosis Yes Short Term Goals Number of Weeks 3 Increase Range of Motion Yes: Flex: 120 Abd: 120 ER: 65 IR: 65 Increase Strength Yes: 4-/5 throughout right shoulder Increase Endurance Yes: Pt will tolerate R shoulder exercises for ~20 min prior to rest. Decrease Subjective C/O Pain Yes: 6/10 at worst Patient to be Ind w/ HEP Yes: AROM, AAROM exercises Improve Quick Dash Score Yes: Activities: 35 or below Lead Quality Technician Goals Number of Weeks 6 Increase Range of Motion Yes: Flex: 140 Abd: 140 ER: 80 IR: 70 Increase Strength Yes: 4,5/5 throughout right shoulder Increase Endurance Yes: Pt will tolerate R shoulder exercises for ~30 min prior to rest. Decrease Subjective C/O Pain Yes: 4/10 at worst Patient to be Ind w/ Advanced HEP Yes: Advanced strengthening; little Improve Quick Dash Score Yes: Activities: 25 or below Outpatient Therapy Plan of Care Treatment Plan May Include Therapeutic Exercise Including Home Yes Exercise Program Manual Therapy Techniques Yes Neuromuscular Re-education Yes Therapeutic Activities to Return to Yes Previous Functional/Work Level ADL/Self Care Education Yes Dry Needling Yes Thermal Modalities Yes Electrical Stimulation Yes Ultrasound/Phonophoresis Yes Iontophoresis Yes Orthotics/Bracing/Splinting Yes Massage Yes Eval/Re-Eval Yes Frequency Times per week 2 Duration Number of Weeks 6 Addendums This patient is a candidate for social No or vocational rehab? Patient/Guardian verbally acknowledges Yes understanding of treatment program and consents to further treatment? Patient/Guardian verbally acknowledges Yes understanding of diagnosis, prognosis and goals for treatment? Eval Complexity OT Charge 30513 - Moderate Complexity PHYSICIAN CERTIFICATION: I certify the specified therapy services for Germania William are required, authorized, and reviewed every 30 days.
== END 2024-05-12 10:05 | disposition home or self-care (01) ==
LOC: OT 10:00
PROVIDERS: Visit Provider Physician Assistant
DX: M25.511 Pain in right shoulder (principal); M67.911 Unspecified disorder of synovium and tendon, right shoulder
CPT/HCPCS: 97014; 97110; 97140; 97166; G0283

== ENCOUNTER 2024-05-16 14:57 | Outpatient (CLI) | payer OTHER, SELFPAY ==
--- NOTE | 2024-05-16 14:57 | MR_ITS ---
FINAL REPORT CLINICAL HISTORY: Rt Shoulder Pain. limited rom COMPARISON: None FINDINGS: Multi planar MR imaging of the right shoulder was performed. The supraspinatus tendon appears intact. There is no abnormal fluid in the subacromial/subdeltoid bursa. The anterior and posterior glenoid ana appear intact. The biceps tendon appears intact. There is mild hypertrophic change of the acromioclavicular joint. IMPRESSION: Mild hypertrophic change of the acromioclavicular joint, otherwise no significant bony or soft tissue abnormality identified. Reviewed, Interpreted and Dictated by Kelton Silva MD Transcribed by Alicia Chavis Authenticated and [facility]
== END 2024-05-16 23:59 | disposition home or self-care (01) ==
LOC: RAD 14:57
PROVIDERS: PCP Family Medicine; Visit Provider Physician Assistant
DX: M75.51 Bursitis of right shoulder (principal)
CPT/HCPCS: 73221

== ENCOUNTER 2024-06-02 08:48 | Emergency (ER) | payer OTHER, SELFPAY ==
[2024-06-02 08:56] VITALS: BP 143/101; PULSE 86; RESP 18; TEMP 36.6; O2SAT 100; BMI 27.4
--- NOTE | 2024-06-02 09:14 | ED_ITS ---
Discharge Plan Disposition Patient Disposition: Home, Self-Care Prescriptions Prescriptions: New prednisone 20 mg tablet 40 mg PO DAILY 5 Days Qty: 10 0RF No Action fluticasone propionate 50 mcg/actuation spray,suspension 2 spray INTRANASAL DAILY Qty: 16 10RF Rx Instructions: each nostril daily albuterol sulfate 2.5 mg /3 mL (0.083 %) solution for nebulization 2.5 mg IH BID PRN (Reason: Shortness Of Breath) Qty: 75 5RF ondansetron HCl 4 mg tablet 4 mg PO Q8H PRN (Reason: nausea and vomiting) Qty: 20 0RF cetirizine 10 mg tablet 10 mg PO DAILY Qty: 90 3RF montelukast 10 mg tablet 10 mg PO DAILY Qty: 90 3RF albuterol sulfate 90 mcg/actuation HFA aerosol inhaler 2 puff INHALATION Q6 PRN (Reason: Shortness Of Breath Or Wheezing) Qty: 8.5 10RF budesonide-formoterol [Symbicort] 160-4.5 mcg/actuation HFA aerosol inhaler See Rx Instructions .ROUTE .COMPLEX Qty: 10.2 10RF Dose Instruction: INHALE TWO PUFFS BY MOUTH TWICE DAILY --RINSE MOUTH AFTER USE-- Rx Instructions: INHALE TWO PUFFS BY MOUTH TWICE DAILY --RINSE MOUTH AFTER USE-- citalopram 20 mg tablet 40 mg PO DAILY Qty: 90 3RF metformin 500 mg tablet 500 mg PO BID Qty: 180 3RF silver sulfadiazine 1 % cream 1 applic topical BID Qty: 400 1RF Rx Instructions: apply a 1.5 mm thickness loratadine 10 mg tablet 10 mg PO DAILY Patient Comments: TAKE ONE TABLET BY MOUTH EVERY DAY FOR ALLERGY symptoms cyclobenzaprine 10 mg tablet 10 mg PO TID PRN (Reason: muscle spasm) Qty: 30 0RF alprazolam 1 mg tablet 1 mg PO HS PRN (Reason: sleep) Qty: 30 3RF mirtazapine [Remeron] 15 mg tablet 15 mg PO HS PRN (Reason: sleep) Qty: 30 3RF omeprazole 20 mg capsule,delayed release(DR/EC) 20 mg PO DAILY Qty: 90 3RF hydrocodone-acetaminophen 10-325 mg tablet 1 tab PO DAILY PRN (Reason: pain) Qty: 15 0RF lidocaine 5 % adhesive patch,medicated 1 patch topical DAILY Qty: 30 12RF Rx Instructions: leave on most painful area for up to 12 hrs estradiol 2 mg tablet See Rx Instructions .ROUTE .COMPLEX Qty: 30 5RF Dose Instruction: TAKE ONE TABLET BY MOUTH EVERY DAY Rx Instructions: TAKE ONE TABLET BY MOUTH EVERY DAY promethazine 25 mg tablet 25 mg PO TID PRN (Reason: nausea and vomiting) Qty: 30 3RF hydroxyzine HCl 25 mg tablet See Rx Instructions .ROUTE .COMPLEX Qty: 90 0RF Dose Instruction: TAKE TWO TABLETS BY MOUTH EVERY 6 HOURS NEEDED FOR ANXIETY Rx Instructions: TAKE TWO TABLETS BY MOUTH EVERY 6 HOURS NEEDED FOR ANXIETY ibuprofen 800 mg tablet See Rx Instructions .ROUTE .COMPLEX Qty: 90 3RF Dose Instruction: TAKE ONE TABLET BY MOUTH EVERY 8 HOURS Rx Instructions: TAKE ONE TABLET BY MOUTH EVERY 8 HOURS hydrocodone-acetaminophen 5-325 mg tablet 1 tab PO DAILY PRN (Reason: pain) Qty: 5 0RF Referrals Follow up/Referrals: Jitendra Hartley MD [Primary Care Provider] - See instructions Activity Restrictions/Add. Instructions Additional Instructions/Restrictions: Call your family doctor to establish care for this visit to the emergency department and schedule follow-up within 48 hours to ensure improvement. If you have any worsening of your condition or any other concerning signs or symptoms, return to the emergency department or your primary care doctor for further evaluation. Follow-up with Dr. Jo and orthopedics for possible surgical management. Sling for comfort unless sleeping. Steroid each morning for the next 5 days. Clinical Impressions Clinical Impression: Pain in right shoulder, Opiate dependence Print Language Print Language: Algerian Discharge ED Provider: [facility] HPI General Chief complaint: PAIN Stated complaint: WC-Pain in R shoulder Time Seen by Provider: 06/02/24 08:53 Mode of Arrival: Ambulatory Source of Information: Patient Limitations: No Limitations Description of Symptoms (Recalled from ER Triage Doc. by RN): Pt. complains of right shoulder pain. Pt. states on 02/29/24 she was injuried at work when a large pack of drinks feel on her. She saw ortho yesterday and got a cortisone shot in her shoulder. She states the pain is 9/10 and she was going to her PCP for pain medication but he is out sick and she could not be seen. She usually takes Lortab 10 mg daily. She states she will take half in the morning and half in the afternoon usually. She states the orthopedic doctor told her if the shot didn't help she would need surgery to repair a meniscus tear. History of Present Illness HPI narrative: Please note that above description of symptoms, in this electronic medical record under categorization of recalled from ER triage doctor by RN are reflective of an initial nursing assessment, however, is not reflective of my full history and physical exam that was personally taken and clarified. Consequentially, this preceding description of symptoms, which may include the patient's categorized chief complaint in the EMR, do not reflect my personal clinical impression, and the ultimate description of history of present illness and patient stated complaints should be deferred to this section of the note. Unless stated otherwise or congruent with this section of the note, additional signs, symptoms, or incongruence should be interpreted as inaccurate with my clinical impression. Related Data Home Medications ?Medication ?Instructions ?Recorded ?Confirmed loratadine 10 mg tablet 10 mg PO DAILY 03/06/24 05/26/24 Previous Rx's ?Medication ?Instructions ?Recorded citalopram 20 mg tablet 40 mg (2 x 20 mg) PO DAILY 08/05/23 Depression #90 tabs albuterol sulfate 2.5 mg/3 mL 2.5 mg (3 mL) inhalation BID PRN 10/07/23 (0.083 %) solution for nebulization Shortness Of Breath #75 mL fluticasone propionate 50 2 spray intranasal DAILY Allergy 10/07/23 mcg/actuation nasal symptoms #16 grams spray,suspension ondansetron HCl 4 mg tablet 4 mg PO Q8H PRN nausea and 12/08/23 vomiting #20 tabs albuterol sulfate 90 mcg/actuation 2 puff inhalation Q6 PRN Shortness 01/13/24 aerosol inhaler Of Breath Or Wheezing #8.5 grams budesonide-formoterol HFA 160 See Rx Instructions .Route 01/13/24 mcg-4.5 mcg/actuation aerosol .COMPLEX #10.2 grams inhaler (Symbicort) cetirizine 10 mg tablet 10 mg PO DAILY #90 tabs 01/13/24 montelukast 10 mg tablet 10 mg PO DAILY #90 tabs 01/13/24 metformin 500 mg tablet 500 mg PO BID #180 tabs 01/28/24 silver sulfadiazine 1 % topical 1 applic topical BID #400 grams 01/31/24 cream cyclobenzaprine 10 mg tablet 10 mg PO TID PRN muscle spasm #30 03/07/24 tabs estradiol 2 mg tablet See Rx Instructions .Route 03/10/24 .COMPLEX #30 tabs promethazine 25 mg tablet 25 mg PO TID PRN nausea and 03/13/24 vomiting #30 tabs alprazolam 1 mg tablet 1 mg PO HS PRN sleep #30 tabs 03/17/24 mirtazapine 15 mg tablet (Remeron) 15 mg PO HS PRN sleep #30 tabs 03/17/24 hydroxyzine HCl 25 mg tablet See Rx Instructions .Route 05/01/24 .COMPLEX #90 tabs ibuprofen 800 mg tablet See Rx Instructions .Route 05/01/24 .COMPLEX #90 tabs omeprazole 20 mg capsule,delayed 20 mg PO DAILY peptic ulcer #90 05/04/24 release caps hydrocodone 5 mg-acetaminophen 325 1 tab PO DAILY PRN pain #5 tabs 05/24/24 mg tablet hydrocodone 10 mg-acetaminophen 1 tab PO DAILY PRN pain #15 tabs 05/26/24 325 mg tablet lidocaine 5 % topical patch 1 patch topical DAILY #30 ea 05/26/24 prednisone 20 mg tablet 40 mg (2 x 20 mg) PO DAILY 5 days 06/02/24 #10 tabs Allergies Allergy/AdvReac Type Severity Reaction Status Date / Time codeine [CODEINE] Allergy Unknown NA-NAUSEA/V Verified 06/02/24 09:07 OMITING cefdinir AdvReac Intermediate Blister Uncoded 05/26/24 10:53 [facility] AdvReac Unknown Blister Uncoded 05/26/24 10:53 [facility] Disclaimer: The information contained in this section may have been updated after the patient was seen, as this information can be updated by other users. Medical History Right shoulder pain Allergic rhinitis Gastroesophageal reflux disease Syncope Tobacco dependence syndrome Dyspnea Social History Smoking Status: Current every day smoker tobacco type: cigarettes packs per day: 3 second hand exposure: No alcohol intake: current alcohol intake frequency: holidays/special occasions only substance use type: marijuana current occupational status: disabled Travel in the last 8 weeks: None household members: significant other housing: house current occupational exposures/hazards: No ROS Obtained: Yes All systems reviewed & no additional complaints except as documented Physical Exam General General appearance: alert Head Head exam: atraumatic and normocephalic Eye Eye exam: Present normal appearance, PERRL and EOMI Neck Neck exam: Present normal inspection, full ROM and trachea midline Respiratory Respiratory exam: Absent respiratory distress, wheezes, stridor, accessory muscle use or prolonged expiratory phase Cardiovascular Cardiovascular exam: Present other (Pulses equal symmetric in upper and lower extremities) Abdominal Exam Abdominal exam: Present soft; Absent distention, tenderness or pulsatile mass Extremities Exam Extremities exam: Present other (Per MDM); Absent edema Neurological Exam Neurological exam: Present alert, oriented X3 and CN II-XII intact; Absent motor sensory deficit Skin Skin exam: Present warm and dry; Absent diaphoresis or erythema Medical Decision Making Medical Records Medical records reviewed: Yes I reviewed the patient's medical records. Gian Inquiry Pt receiving controlled substance: No Gian was queried for this patient: No Vital Signs: 06/02/24 08:56 Temperature 97.9 F Temperature Source Oral Pulse Rate [Left Brachial] 86 Respiratory Rate 18 Blood Pressure [Left Arm] 143/101 H Blood Pressure Mean [Left Arm] 115 Blood Pressure Source [Left Arm] Automatic Cuff Blood Pressure Position [Left Arm] Sitting 02 Sat by Pulse Oximetry 100 Oxygen Delivery Method Room Air Orders (Tests/Meds): ED MEDICATIONS Discontinued Medications Generic Name Dose Route Start Last Admin Trade Name Ovidioq PRN Reason Stop Dose Admin Prednisone 40 mg 06/02/24 09:18 Prednisone 20mg Tab PO 06/02/24 09:19 ONCE ONE Medical Decision Narrative: 38-year-old female chronic right shoulder pain secondary to work incident presenting with request for medication refill. Patient states that she is unable to see her family doctor until , he is the one that refills her opiate prescriptions. Patient describes symptoms of tolerance including decreased pain control with same dose, needing to split her dose in half over the period of the day, increased pain and need to increase dose. Patient states that the pain is severe, right shoulder. No new trauma or anything. Has followed up with orthopedic, states that they will try to plan surgery for concern for torn rotator cuff. Patient requesting opiate refills. History obtained with patient. On physical exam, pavement hyperalgesic. Hypersensitivity to pain with minimal pressure applied to skin concerning for hyperalgesia versus symptom magnification. It was explained that opiate refills and chronic pain management are not within the scope of the emergency department, patient upset, but states that she understands. Patient has never been offered a sling for comfort, sling will be given today for support. Patient has lidocaine patches, ice packs, etc. at home. Patient to be given initial dose of oral prednisone here for inflammatory pain and prednisone to be sent to the pharmacy for 5-day burst. Prolonged discussion for about 10 minutes about opiate dependence was had with patient and need for weaning to prevent long-term complications, she also voiced her understanding of this. Because patient at baseline without signs or symptoms of clinical decompensation, deemed appropriate for discharge. Results were relayed to patient who voiced understanding and were agreeable to outpatient management and follow up. I discussed my clinical impression with patient and answered all questions. At this time, the evidence for any other entities in the differential is insufficient to warrant any further testing or ED observation. This was explained as well. Advisory was given that persistent or worsening symptoms require further evaluation. I confirmed the understanding of this discussion. Veterinary Assistant disclaimer Much of this encounter note is an electronic director of player personnel spoken language to printed text. Electronic director of player personnel of the spoken language may permit errors. Although I have reviewed the note, some errors may still exist. Critical Care Critical Care Time Critical Care Time: No
[2024-06-02] MEDS: predniSONE 20MG TAB 40 MG PO (09:28)
[2024-06-02 09:30] VITALS: BP 144/82; PULSE 88; RESP 16; TEMP 36.7; O2SAT 98
== END 2024-06-02 09:33 | disposition home or self-care (01) ==
PROVIDERS: Emergency Provider Emergency Medicine; PCP Family Medicine
DX: M25.511 Pain in right shoulder (principal); F11.20 Opioid dependence, uncomplicated; F17.210 Nicotine dependence, cigarettes, uncomplicated; W20.8XXA Other cause of strike by thrown, projected or falling object, initial encounter; Y99.0 Civilian activity done for income or pay; G89.29 Other chronic pain
CPT/HCPCS: 99283

== ENCOUNTER 2024-06-21 09:53 | Outpatient (CLI) | payer OTHER, SELFPAY ==
--- NOTE | 2024-06-21 09:53 | MR_ITS ---
FINAL REPORT TECHNIQUE: Multiplanar MR without contrast CLINICAL HISTORY: radicular pain right sided neck pain, injury at work in February COMPARISON: None FINDINGS: Limited images of the posterior fossa are unremarkable. Alignment is normal. Cervical spinal cord shows normal signal and contour. 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 C2-3: Unremarkable C3-4: Unremarkable C4-5: Unremarkable C5-6: Unremarkable C6-7: Unremarkable C7-T1: Unremarkable IMPRESSION: Unremarkable cervical MRI, without evidence of canal stenosis or neural foraminal narrowing. 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 Reviewed, Interpreted and Dictated by Rakel Acosta MD Transcribed by Alicia Chavis Authenticated and [facility]
== END 2024-06-21 23:59 | disposition home or self-care (01) ==
LOC: RAD 09:53
PROVIDERS: PCP Family Medicine; Visit Provider Family Medicine
DX: M25.511 Pain in right shoulder (principal)
CPT/HCPCS: 72141

== ENCOUNTER 2024-08-02 13:45 | Outpatient (CLI) | payer OTHER, SELFPAY ==
--- NOTE | 2024-08-02 13:46 | MR_ITS ---
FINAL REPORT CLINICAL HISTORY: ABNORMAL C-SPINE HEADACHE COMPARISON: None FINDINGS: Multiplanar MR imaging of the brain was performed without and with contrast. There is motion artifact on some of the images decreasing sensitivity of this exam. There is no evidence of intracranial hemorrhage or mass. No abnormal extra-axial fluid collection is seen. The ventricular size is within normal limits. There is no evidence of shift of the midline structures. The posterior fossa and brainstem have an unremarkable appearance. No area of abnormal restricted diffusion is identified. There are slightly low lying cerebellar tonsils without evidence of Chiari malformation. No abnormal contrast enhancement is seen. Normal major vessel vascular flow voids are noted. IMPRESSION: No acute intracranial abnormality identified. Reviewed, Interpreted and Dictated by King Garcia III, MD Transcribed by Ne Palmer Authenticated and [facility]
[2024-08-02] MEDS: SODIUM CHLORIDE 0.9% 10ML SYR (RAD ONLY) 10 ML IV (14:53)
[2024-08-02] MEDS: GADOTERIDOL INJ 20ML SYRINGE 14 ML IV (14:53)
== END 2024-08-02 23:59 | disposition home or self-care (01) ==
LOC: RAD 13:46
PROVIDERS: PCP Family Medicine; Visit Provider Family Medicine
DX: Z86.69 Personal history of other diseases of the nervous system and sense organs (principal)
CPT/HCPCS: 70553; A9576

== ENCOUNTER 2024-09-08 08:01 | Outpatient (CLI) | payer OTHER, SELFPAY ==
--- NOTE | 2024-09-08 08:06 | MR_ITS ---
FINAL REPORT TECHNIQUE: Multiplanar MR following intra-articular contrast injection was obtained of the right shoulder. CLINICAL HISTORY: right shoulder pain. , arthrogram COMPARISON: 05/16/2024 MRI without contrast FINDINGS: Marrow signal: Unremarkable Glenohumeral joint: Injected contrast remains confined to the joint space. There is no evidence of loose body. AC joint: No obvious impingement. No significant hypertrophic changes. Rotator cuff: No evidence of tear Labrum: Normal morphology without tear Biceps tendon: Intra-articular long head biceps tendon intact. IMPRESSION: No evidence of rotator cuff or labral tear. Reviewed, Interpreted and Dictated by Rakel Acosat MD Transcribed by Ne Palmer Authenticated and [facility]
--- NOTE | 2024-09-08 08:13 | IR_ITS ---
FINAL REPORT CLINICAL HISTORY: RT SHOULDER PAIN 4.12 mGy 0:23 min FINDINGS: Arthrogram Right shoulder injection for MRI arthrogram HISTORY: Right shoulder pain. PROCEDURE: After informed consent was obtained, a time-out was performed. Utilizing local anesthesia and sterile technique, with direct fluoroscopic guidance, access to the joint was obtained . A small amount of contrast was injected to confirm needle tip location. Additional gadolinium contrast was injected. IMPRESSION: Status post injection for MRI arthrogram without immediate complication. Please see MRI report. Fluoroscopy time: 23 seconds Radiation exposure in Reference air Kerma: 4.12 mGy Films reviewed , interpreted and dictated by Dr. Garcia Transcribed by Desmond Rodriguez PA-C. Reviewed, Interpreted and Dictated by King Garcia III, MD Transcribed by VALENTIN Irizarry Authenticated and [facility]
[2024-09-08] MEDS: GADOTERIDOL INJ 10ML SYRINGE IV (09:08)
[2024-09-08] MEDS: IOPAMIDOL-300 (61%) 100ML VIAL 100 ML IV (09:15)
== END 2024-09-08 23:59 | disposition home or self-care (01) ==
LOC: RAD 08:02
PROVIDERS: PCP Family Medicine; Visit Provider Orthopaedic Surgery Adult Reconstructive Orthopaedic Surgery
DX: M25.511 Pain in right shoulder (principal)
CPT/HCPCS: 73040; 73222; A9576; Q9967

== ENCOUNTER 2024-11-13 16:05 | Outpatient (CLI) | payer OTHER, SELFPAY ==
[2024-11-13 16:40] LABS: Basophils # 0.1 K/mm3 (0-0.2); Basophils % 0.6 % (0.1-2.0); Eosinophils # 0.1 K/mm3 (0.0-0.4); Eosinophils % 0.9 % (0.1-12.0); Hematocrit 44.9 % (37.0-47.0); Hemoglobin 15.2 g/dL (12.2-16.2); Lymphocytes # 4.8 K/mm3 (0.7-4.5); Lymphocytes % 45.5 % (10-50); Mean Corpuscular HGB Conc 33.9 g/dL (31.8-35.4); Mean Corpuscular Hemoglobin 28.8 pg (27.0-31.2); Mean Corpuscular Volume 85.2 fl (81-99); Monocytes # 0.5 K/mm3 (0.1-1.0); Monocytes % 4.5 % (1.7-9.3); Neutrophils # 5.1 K/mm3 (1.8-7.8); Neutrophils % 48.4 % (37.0-80.0); Platelet Count 427 K/mm3 (142-424); Red Blood Count 5.27 M/mm3 (4.20-5.40); Red Cell Distribution Width 14.6 % (11.5-17.5); White Blood Count 10.6 K/mm3 (4.8-10.8)
[2024-11-13 17:42] LABS: Albumin Level 4.7 g/dl (3.5-5.0); Chloride 107 mmol/L (98-107); Potassium 3.6 mmoL/L (3.5-5.1); Sodium 139 mmol/L (136-145)
[2024-11-13 17:45] LABS: Alanine Aminotransferase 51 U/L (12-78); Albumin/Globulin Ratio 1.6 (1.1-1.8); Alkaline Phosphatase 77 U/L (38-126); Anion Gap 10.6 mEq/L (5-15); Aspartate Amino Transferase 45 U/L (14-36); Bilirubin,Total 0.5 mg/dl (0.2-1.3); Blood Urea Nitrogen 12 mg/dl (7-17); Carbon Dioxide 25 mmol/L (22.0-30.0); Estimated Glomerular Filt Rate 94 ml/min (>60); GFR (African American) 114 ML/MIN (>60); Globulin 2.9 g/dL (1.3-3.2); Total Protein,Serum 7.6 g/dl (6.3-8.2)
[2024-11-13 17:46] LABS: Calcium 9.3 mg/dl (8.4-10.2); Glucose 130 mg/dl (74-100)
[2024-11-13 18:21] LABS: Hemoglobin A1C 5.2 % (4.0-6.0)
[2024-11-13 18:28] LABS: Thyroid Stimulating Hormone 2.24 uIU/mL (0.465-4.68)
[2024-11-14 14:38] LABS: H. pylori Breath Test Negative (Negative)
== END 2024-11-13 23:59 | disposition home or self-care (01) ==
LOC: LAB 16:06
PROVIDERS: PCP Family Medicine; Visit Provider Nurse Practitioner
DX: R10.30 Lower abdominal pain, unspecified (principal); R11.2 Nausea with vomiting, unspecified; R53.83 Other fatigue; R63.1 Polydipsia
CPT/HCPCS: 36415; 80053; 83013; 83036; 84443; 85025; 87086

== ENCOUNTER 2024-11-20 14:00 | Outpatient (RCR) | payer OTHER, SELFPAY | END 2024-11-20 23:59 | disposition home or self-care (01) | LOC: OT 14:00 | PROVIDERS: PCP Family Medicine; Visit Provider Physician Assistant | DX: M25.511 Pain in right shoulder (principal) | CPT/HCPCS: 97014; 97110; 97140; 97166; G0283 ==

== ENCOUNTER 2025-06-26 20:22 | Emergency (ER) | payer OTHER, SELFPAY ==
--- OUTSIDE RECORDS SUMMARY | 2025-06-26 21:20 | XMS_ITS ---
Author Organization [facility] Address [address] [place] [address] Phone Care Team Providers Care Supervisor Steffen House Name Role Phone Sandro MAGALLON, Levon Hayden [phone] Problems Includes: Active, inactive, and resolved Problems All Visits Onset Date Resolved Date Provider Condition S tatus Joint Pain Shoulder Right 06/01/2024 Levon horn MD Active Last Documented On 4 11:05AM ; [facility] Plan of Treatment Instructions to patient Intervention and counseling on cessation of tobacco use Last Documented On 4 1:40PM ; [facility] Intervention and counseling on cessation of tobacco use Last Documented On 4 11:03AM ; [facility] Lose weight Last Documented On 4 11:03AM ; [facility] Intervention and counseling on cessation of tobacco use Last Documented On 4 11:13AM ; [facility] Lose weight Last Documented On 4 11:13AM ; [facility], [facility] Assessments Includes: Assessments for all patient encounters Findings Encounter Date Overweight WC FOLLOW UP/EST with Jose Cruz rivera PA-C 06/02/2024 Last Documented On 4 1:58PM ; [facility], [facility] Overweight WC NEW PATIENT with Levon truong MD 06/01/2024 Last Documented On 4 11:50AM ; [facility] Instructions Includes: Instructions for all patient encounters Instructions to patient Intervention and counseling on cessation of tobacco use Last Documented On 4 1:40PM ; [facility] Intervention and counseling on cessation of tobacco use Last Documented On 4 11:03AM ; [facility] Lose weight Last Documented On 4 11:03AM ; [facility], [facility] Intervention and counseling on cessation of tobacco use Last Documented On 4 11:13AM ; [facility], [facility] Lose weight Last Documented On 4 11:13AM ; [facility], [facility] Medical Equipment - Implanted Devices Includes: Current and historical Devices No Medical Equipment Recorded Medications Includes: Current and historical Medications Current Medications (continue as prescribed) HYDROcodone-Acetaminophen 10-325 MG Oral Tablet 2023 Provider: Diagnosis: Last Documented On 4 11:06AM By Savannah Belcher ; [facility], [facility] Lidocaine 5% External Patch 05/26/2024 Provider: Diagnosis: Last Documented On 4 11:06AM By Savannah Belcher ; [facility], [facility] ALPRAZolam 1 MG Oral Tablet 05/19/2024 Provider: Diagnosis: Last Documented On 4 11:06AM By Savannah Belcher ; [facility], [facility] Estradiol 2 MG Oral Tablet 05/18/2024 Provider: Diagnosis: Last Documented On 4 11:06AM By Savannah Belcher ; [facility], [facility] Mirtazapine 15 MG Oral Tablet 05/18/2024 Provider: Diagnosis: Last Documented On 4 11:06AM By Savannah Belcher ; [facility], [facility] Omeprazole 20 MG Oral Capsule Delayed Release 05/04/20 24 Provider: Diagnosis: Last Documented On 4 11:06AM By Savannah Belcher ; [facility], [facility] Fluticasone Propionate 50 MCG/ACT Nasal Suspension 01/2024 Provider: Diagnosis: Last Documented On 4 11:06AM By Savannah Belcher ; [facility], [facility] Ibuprofen 800 MG Oral Tablet 05/01/2024 Provider: Diagnosis: Last Documented On 4 11:06AM By Savannah Belcher ; [facility], [facility] metFORMIN HCl 500 MG Oral Tablet 05/01/2024 Provider : Diagnosis: Last Documented On 4 11:06AM By Savannah Belcher ; [facility], [facility] Promethazine HCl 25 MG Oral Tablet 05/01/2024 Provid er: Diagnosis: Last Documented On 4 11:06AM By Savannah Belcher ; [facility] Ventolin HFA 108 (90 Base) MCG/ACT Inhalation Ae rosol Solution 05/01/2024 Provider: Diagnosis: Last Documented On 4 11:06AM By Savannah Belcher ; [facility], [facility] Symbicort 160-4.5 MCG/ACT Inhalation Aerosol Provider: Diagnosis: Last Documented On 4 11:06AM By Savannah Belcher ; [facility] Past Medications on file HYDROcodone-Acetaminophen 10-325 MG Oral Tablet 05/08/2024 - 06/01/2024 Provider: Diagnosis: Last Documented On 4 11:11AM By Savannah Belcher ; [facility] hydrOXYzine HCl 25 MG Oral Tablet 05/01/2024 - 024 Provider: Diagnosis: Last Documented On 4 11:11AM By Savannah Belcher ; [facility], [facility] Medications Administered Includes: Administered Medications in patient's chart No Administered Medications Recorded Vital Signs Includes: Vital Signs from 06/26/2024 through 06/26/2025 Vital Name 07/19/2024 01:40P Height (in) 64 Weight (lb) 135 Body Mass Index 23.2 Body Surface Area 1.7 Pain Level 7 Note: Last Documented: On 07/19/2024 1:59PM ; [facility] Results Includes: Results from 06/26/2024 through 06/26/2025 No Results Recorded For Specified Dates History of Present Illness History of Present Illness not supported for this document type No History of Present Illness Recorded Social History Description Last Updated Caffeine use 06/02/2024 Last Documented On 4 1:58PM ; [facility] No recent change in diet 06/02/2024 Last Documented On 4 1:58PM ; [facility] Not exercising regularly 06/02/2024 Last Documented On 4 1:58PM ; [facility] Not using alcohol 06/02/2024 Last Documented On 4 1:58PM ; [facility], [facility] Not using drugs 06/02/2024 Last Documented On 4 1:58PM ; [facility], [facility] Yes, current smoker. 06/02/2024 Last Documented On 4 1:58PM ; [facility], [facility] Smoking Status Unknown Procedures and Surgical History Surgical History Last Updated History of appendectomy 06/02/2024 Last Documented On 4 1:58PM ; [facility], [facility] History of History of Gallbladder 2023 Last Documented On 4 1:58PM ; [facility], [facility] History of hysterectomy 06/02/2024 Last Documented On 4 1:58PM ; [facility], [facility] History of Previous Fractures 06/02/2024 Last Documented On 4 1:58PM ; [facility], [facility] History of total knee arthroplasty 06/02 Last Documented On 4 1:58PM ; [facility], [facility] Medical History Includes: Medical History in patient's chart Description Last Updated History of asthma 06/02/2024 Last Documented On 4 1:58PM ; [facility], [facility] History of depression 06/02/2024 Last Documented On 4 1:58PM ; [facility], [facility] History of Fractures 06/02/2024 Last Documented On 4 1:58PM ; [facility], [facility] History of History of Cancer 06/02/2024 Last Documented On 4 1:58PM ; [facility], [facility] Family History Includes: Family History in patient's chart Description Last Updated Family history of cancer 06/02/2024 Last Documented On 4 1:58PM ; [facility], [facility] Family history of heart disease 06/02/20 24 Last Documented On 4 1:58PM ; [facility], [facility] Review of Systems Review of Systems not supported for this document type No Review of Systems Recorded Mental Status Description Anxiety Functional Status No Functional Status Recorded Physical Exam Physical Exam not supported for this document type No Physical Exam Recorded Allergies Includes: Active, inactive, and resolved Allergies Substance Type Reaction Onset Date Resolved Date Statu s Codeine Sulfate Allergy Hives / Urticaria 06/01/2024 Active Last Documented On 1:40PM ; [facility], [facility] Encounters Includes: Encounters from 06/26/2024 through 06/26/2025 Encounter Provider Location Date Check-In Time Check-Out Time Diagnosis FOLLOW UP/EST Jose Cruz Espinoza PA-C [facility] 07/19/20 24 1:33PM 2:13PM Insurance Includes: Active Insurance Policies Plan Name Member ID Group # Subscriber Relationship Effect anil Dates 1 - [id number] Germania William Self 02/29/2024 - Unknown Clinical Notes Includes: Signed Clinical Notes starting from 09/10/2022 * Progress note Date Encounter Last Documented by 07/19/2024 FOLLOW UP/EST Last documented on 07/19/2024; 3:08 PM, Jose Cruz Espinoza PA-C; [facility], [facility] Active Problems & Conditions - Joint Pain, Localized in the Right Shoulder Chief Complaint The Chief Complaint is: Right shoulder/cervical pain. Referred Here Referred by . History of Present Illness Germania William is a 39 year old female. - Allergy list reviewed - Problem list reviewed - Medication list reviewed - Previous history of new onset pain 02/29/2024 Work Injury - Patient pain level from 1-10: 7 - Yes, previous treatment. - - Review of medications documented Patient is here today for follow up she ended up having a cervical MRI done through her family physician. Her biggest complaint still is this right shoulder pain we will kind of radiate down the arm to just about the elbow we have seen a shoulder MRI for which was essentially normal she is here today to go over the cervical spine MRI. His shoulder still hurts it hurts when she tries to move out or raise up with the right arm. Dr. Jo was not considering any surgeries on her shoulder for her. No balance issues bowel or bladder issues. She says she can not get back to work the injury happened at work on February 29, 2024 when she was reaching out to grab a cart that was falling. She has had an EMG which was negative. 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 Current Medication - ALPRAZolam 1 MG Oral Tablet 30 days, 0 refills - Estradiol 2 MG Oral Tablet 30 days, 0 refills - Fluticasone Propionate 50 MCG/ACT Nasal Suspension 30 days, 0 refills - HYDROcodone-Acetaminophen 10-325 MG Oral Tablet 15 days, 0 refills - Ibuprofen 800 MG Oral Tablet 30 days, 0 refills - Lidocaine 5% External Patch 30 days, 0 refills - metFORMIN HCl 500 MG Oral Tablet 30 days, 0 refills - Mirtazapine 15 MG Oral Tablet 30 days, 0 refills - Omeprazole 20 MG Oral Capsule Delayed Release 30 days, 0 refills - Promethazine HCl 25 MG Oral Tablet 10 days, 0 refills - Symbicort 160-4.5 MCG/ACT Inhalation Aerosol 30 days, 0 refills - Ventolin HFA 108 (90 Base) MCG/ACT Inhalation Aerosol Solution 25 days, 0 refills Past Medical/Surgical History Reported: History of Fractures. Diagnoses: Asthma History of Cancer. Depression Surgical: - Appendectomy - Hysterectomy - History of Gallbladder - Previous Fractures - Total knee arthroplasty Social History Yes, current smoker. Current diet: No recent change in diet. Caffeine use: Caffeine use. Alcohol: Not using alcohol. Drug Use: Not using drugs. Habits: Not exercising regularly. Allergies - Codeine Sulfate Reaction: Hives / Urticaria Family History Cancer Heart disease Review Of Systems Systemic: Not feeling tired and no recent weight loss. Recent weight gain. Head: No headache and no sinus pain. Eyes: No vision problems, no Cataracts, no Glasses/Contacts, and no Glaucoma. Otolaryngeal: No hearing loss and no tinnitus. Cardiovascular: No chest pain or discomfort, no palpitations, no Hypertension, and no High Cholesterol. Pulmonary: Daytime asthma symptoms. No chronic cough. Wheezing. Gastrointestinal: No heartburn and no abdominal pain. No Indigestion, no Peptic Ulcer, no GI Stomach Bleed, no Ulcers, and no Acid Reflux. Endocrine: Hot flashes. No muscle weakness, no Diabetes, no Hypothyroid, and no Hyperthyroid. Hematologic: No easy bleeding, no tendency for easy bruising, and no Anemia. Musculoskeletal: Arthritis. No lower back pain. No soft tissue swelling and no localized joint pain. Neurological: No dizziness, no convulsions, and no numbness. Psychological: Anxiety. No emotional lability. Depression. No insomnia. Not crying for no reason. Skin: No dry skin. No Ulcers, no Scars, and no rash. Allergic and Immunologic: No complaint of seasonal allergic reaction. Physical Findings - Vitals taken 07/19/2024 01:40 pm lc Height 64 in Weight 135 lbs Body Mass Index 23.2 kg/m2 Body Surface Area 1.7 m2 Pain Level 7 Complains of pain along the right upper trap today There is no warmth there is no erythema with the right shoulder Shoulder flexion actively to about 90 for flexion and abduction with pain She has 5/5 biceps triceps deltoids wrist extension and flexion strength no long tract findings Tests MRI of the right shoulder show no acute rotator cuff tear Cervical spine MRI was negative there was a notation of cerebral tonsillar ectopia Assessment Right shoulder pain Previous Tests Imaging: MRI Scan: An MRI was performed 05/16/2024 [facility] MRI RIGHT SHOULDER mricspine 06-22-2024. Available previous imaging studies were reviewed Available previous history reviewed Counseling/Education - Tobacco use - Use of tobacco assessment performed - Intervention and counseling on cessation of tobacco use Plan Patient was seen by myself Jose Cruz Espinoza PA-C. Patient will follow up with us as needed she wants to seek a 2nd opinion I did offer her to see Dr. Alvarez in our [place] office she does not want to go to [place] she would prefer to see Dr. Jasmine who is in his different orthopedic practice we will make that referral for her. I do not believe she needs cervical surgery either. She is going to follow up with a neurologist at some point also that her family physician is having her see. Notes This dictation was done with voice recognition software and may contain errors and omissions. Health Reminders - Assess BMI satisfied 07/19/2024. - Assess Tobacco Use satisfied 07/19/2024. - Smoking & Tobacco Cessation Intervention and Counseling satisfied 07/19/2024.
--- OUTSIDE RECORDS SUMMARY | 2025-06-26 21:20 | XMS_ITS ---
Care Plan - [facility] Created on: June 26, 2025 William Germania Amanda : 1985 Sex: Female Author Organization [facility] Address [address] [place] [address] Phone Care Team Providers Care Historical Guide Name Role Phone Levon Jo MD Unavailable [phone]
--- OUTSIDE RECORDS SUMMARY | 2025-06-26 21:20 | XMS_ITS | Clinical Summary ---
Author Organization [facility] , [facility] Address [address] [place] [address] Phone Care Team Providers Care Planning Intern Name Role Phone Sandro MAGALLON, Levon Rodrigues Unavailable [phone] Reason for Visit and Chief Complaint The Chief Complaint is: right shoulder/cervical pain Problems Includes: Problems addressed during this encounter and other active Problems All Visits Onset Date Resolved Date Provider Condition S tatus Joint Pain Shoulder Right 06/01/2024 Levon horn MD Active Last Documented On 11:05AM ; [facility], [facility] Plan of Treatment Patient was seen by myself Jose Cruz Espinoza PA-C. Patient will follow up with us as needed she wants to seek a 2nd opinion I did offer her to see Dr. Alvarez in our [place] office she does not want to go to [place] she would prefer to see Dr. Jasmine who is in his different orthopedic practice we will make that referral for her. I do not believe she needs cervical surgery either. She is going to follow up with a neurologist at some point also that her family physician is having her see. - Last Documented On 07/19/2024 3:08PM ; [facility], [facility] Instructions to patient Intervention and counseling on cessation of tobacco use Last Documented On 1:40PM ; [facility], [facility] Assessments Includes: Assessments from this encounter Findings Right shoulder pain - Last Documented On 07/19/2024 3:08PM ; [facility], [facility] Instructions Includes: Instructions from this encounter Instructions to patient Intervention and counseling on cessation of tobacco use Last Documented On 1:40PM ; [facility], [facility] Medical Equipment - Implanted Devices Includes: Current Devices No Medical Equipment Recorded Medications Includes: Medications discussed during this encounter and other current Medications Current Medications (continue as prescribed) HYDROcodone-Acetaminophen 10-325 MG Oral Tablet 2023 Provider: Diagnosis: Last Documented On 4 11:06AM By Savannah Belcher ; [facility], [facility] Lidocaine 5% External Patch 05/26/2024 Provider: Diagnosis: Last Documented On 4 11:06AM By Savannah Belcher ; [facility], [facility] ALPRAZolam 1 MG Oral Tablet 05/19/2024 Provider: Diagnosis: Last Documented On 4 11:06AM By Savannah Belcher ; [facility], [facility] Estradiol 2 MG Oral Tablet 05/18/2024 Provider: Diagnosis: Last Documented On 4 11:06AM By Savannah Belcher ; [facility], [facility] Mirtazapine 15 MG Oral Tablet 05/18/2024 Provider: Diagnosis: Last Documented On 4 11:06AM By Savannah Belcher ; [facility], [facility] Omeprazole 20 MG Oral Capsule Delayed Release 05/04/20 24 Provider: Diagnosis: Last Documented On 4 11:06AM By Savannah Belcher ; [facility], [facility] Fluticasone Propionate 50 MCG/ACT Nasal Suspension 01/2024 Provider: Diagnosis: Last Documented On 4 11:06AM By Savannah Belcher ; [facility], [facility] Ibuprofen 800 MG Oral Tablet 05/01/2024 Provider: Diagnosis: Last Documented On 4 11:06AM By Savannah Belcher ; [facility], [facility] metFORMIN HCl 500 MG Oral Tablet 05/01/2024 Provider : Diagnosis: Last Documented On 4 11:06AM By Savannah Belcher ; [facility], [facility] Promethazine HCl 25 MG Oral Tablet 05/01/2024 Provid er: Diagnosis: Last Documented On 4 11:06AM By Savannah Belcher ; [facility], [facility] Ventolin HFA 108 (90 Base) MCG/ACT Inhalation Ae rosol Solution 05/01/2024 Provider: Diagnosis: Last Documented On 4 11:06AM By Savannah Belcher ; [facility], [facility] Symbicort 160-4.5 MCG/ACT Inhalation Aerosol Provider: Diagnosis: Last Documented On 11:06AM By Savannah Belcher ; [facility], [facility] Medications Administered Includes: Administered Medications from this encounter No Administered Medications Recorded Vital Signs Includes: Vital Signs from this encounter Vital Name 07/19/2024 01:40P Height (in) 64 Weight (lb) 135 Body Mass Index 23.2 Body Surface Area 1.7 Pain Level 7 Note: lc Last Documented: On 07/19/2024 1:59PM ; [facility], [facility] Results Includes: Results discussed during this encounter No Results Recorded For Specified Dates History of Present Illness Includes: History of Present Illness from this encounter ALIE William is a 39 year old female. [...] showing note of a cerebral tonsillar ectopia Social History Description Last Updated Caffeine use 06/02/2024 Last Documented On 4 1:40PM ; [facility], [facility] No recent change in diet 06/02/2024 Last Documented On 4 1:40PM ; [facility], [facility] Not exercising regularly 06/02/2024 Last Documented On 4 1:40PM ; [facility], [facility] Not using alcohol 06/02/2024 Last Documented On 4 1:40PM ; [facility], [facility] Not using drugs 06/02/2024 Last Documented On 4 1:40PM ; [facility], [facility] Yes, current smoker. 06/02/2024 Last Documented On 4 1:40PM ; [facility] Smoking Status Unknown Procedures and Surgical History Includes: Procedures from this encounter Procedures Code Diagnosis Performing Provider Service L ocation Service Date an MRI was performed 05/16/2024 [facility] ~MRI RIGHT SHOULDER ~mricspine 06-22-2024 [id number] Last Documented On 4 1:59PM ; [facility], [facility] Surgical History Last Updated History of appendectomy 06/02/2024 Last Documented On 4 1:40PM ; [facility], [facility] History of History of Gallbladder 2023 Last Documented On 1:40PM ; [facility], [facility] History of hysterectomy 06/02/2024 Last Documented On 4 1:40PM ; [facility], [facility] History of Previous Fractures 06/02/2024 Last Documented On 4 1:40PM ; [facility], [facility] History of total knee arthroplasty 06/02 Last Documented On 4 1:40PM ; [facility], [facility] Medical History Includes: Medical History addressed during this encounter Description Last Updated History of asthma 06/02/2024 Last Documented On 4 1:40PM ; [facility], [facility] History of depression 06/02/2024 Last Documented On 4 1:40PM ; [facility], [facility] History of Fractures 06/02/2024 Last Documented On 4 1:40PM ; [facility], [facility] History of History of Cancer 06/02/2024 Last Documented On 4 1:40PM ; [facility], [facility] Family History Includes: Family History addressed during this encounter Description Last Updated Family history of cancer 06/02/2024 Last Documented On 4 1:40PM ; [facility], [facility] Family history of heart disease 09/06/20 24 Last Documented On 4 1:40PM ; [facility] Review of Systems Includes: Review of Systems from this encounter Systemic: Not feeling tired and no recent [...] Immunologic: No complaint of seasonal allergic reaction. Mental Status Includes: Mental Status from this encounter Description Anxiety Functional Status Includes: Functional Status from this encounter No Functional Status Recorded Physical Exam Includes: Physical Exam from this encounter Allergies Includes: Active Allergies Substance Type Reaction Onset Date Resolved Date Statu s Codeine Sulfate Allergy Hives / Urticaria 06/01/2024 Active Last Documented On 4 1:40PM ; [facility] Encounters Encounter Provider Location Date Check-In Time Check-Out Time Diagnosis WC FOLLOW UP/EST Jose Cruz Espinoza PA-C [facility] 07/19/20 24 1:33PM 2:13PM Insurance Includes: Active Insurance Policies Plan Name Member ID Group # Subscriber Relationship Effect anil Dates 1 - [employer] [id number] Germania William Self 02/29/2024 - Unknown Clinical Notes Includes: Clinical Notes from this encounter * Progress note Date Encounter Last Documented by 07/19/2024 WC FOLLOW UP/EST Last documented on 07/19/2024; 3:08 PM, Jose Cruz Espinoza PA-C; [facility] Active Problems & Conditions - Joint Pain, Localized in the Right Shoulder Chief Complaint The Chief Complaint is: Right shoulder/cervical pain. Referred Here Referred by WC. History of Present Illness Germania William is [...] MRI Scan: An MRI was performed 05/16/2024 [facility] MRI RIGHT SHOULDER mricspine 06-22-2024. Available [...] her to see Dr. Alvarez in our [place] office she does not want to go to [place] she would prefer to see Dr. Jasmine [...]
--- OUTSIDE RECORDS SUMMARY | 2025-06-26 21:20 | XMS_ITS | Clinical Summary ---
Author Organization [facility] , [facility] Address [address] [place] [address] Phone Care Team Providers Care Cooker Tender Name Role Phone Sandro MAGALLON, Levon Rodrigues Unavailable [phone] Reason for Visit and Chief Complaint The Chief Complaint is: right shoulder/cervical pain Problems Includes: Problems addressed during this encounter and other active Problems All Visits Onset Date Resolved Date Provider Condition S tatus Joint Pain Shoulder Right 06/01/2024 Levon horn MD Active Last Documented On 11:05AM ; [facility], [facility] Plan of Treatment Patient was seen by myself Jose Cruz Espinoza PA-C. Patient will follow up right now her next visit it is getting appointment I told her I would speak with Dr. Jo about her and find out if he was willing to offer surgery for her. I have told her I can not give her anything for pain. She states it Dr. Jo in his not going to offer her surgery she is going to go see Dr. Jasmine. Note to be off work - Last Documented On 06/13/2024 1:58PM ; [facility], [facility] Instructions to patient Intervention and counseling on cessation of tobacco use Last Documented On 4 11:03AM ; [facility], [facility] Lose weight Last Documented On 4 11:03AM ; [facility], [facility] Assessments Includes: Assessments from this encounter Findings - Overweight - Last Documented On 06/13/2024 1:58PM ; [facility], [facility] Right shoulder pain - Last Documented On 06/13/2024 1:58PM ; [facility], [facility] Instructions Includes: Instructions from this encounter Instructions to patient Intervention and counseling on cessation of tobacco use Last Documented On 4 11:03AM ; [facility], [facility] Lose weight Last Documented On 4 11:03AM ; [facility], [facility] Medical Equipment - Implanted Devices Includes: Current Devices No Medical Equipment Recorded Medications Includes: Medications discussed during this encounter and other current Medications Current Medications (continue as prescribed) HYDROcodone-Acetaminophen 10-325 MG Oral Tablet 2023 Provider: Diagnosis: Last Documented On 4 11:06AM By Savannah Belcher ; [facility], [facility] Lidocaine 5% External Patch 05/26/2024 Provider: Diagnosis: Last Documented On 4 11:06AM By Savannah Belcher ; [facility], [facility] ALPRAZolam 1 MG Oral Tablet 05/19/2024 Provider: Diagnosis: Last Documented On 4 11:06AM By Savannah Belcher ; [facility], [facility] Estradiol 2 MG Oral Tablet 05/18/2024 Provider: Diagnosis: Last Documented On 4 11:06AM By Savannah Belcher ; [facility], [facility] Mirtazapine 15 MG Oral Tablet 05/18/2024 Provider: Diagnosis: Last Documented On 4 11:06AM By Savannah Belcher ; [facility], [facility] Omeprazole 20 MG Oral Capsule Delayed Release 05/04/20 24 Provider: Diagnosis: Last Documented On 4 11:06AM By Savannah Belcher ; [facility], [facility] Fluticasone Propionate 50 MCG/ACT Nasal Suspension 01/2024 Provider: Diagnosis: Last Documented On 4 11:06AM By Savannah Belcher ; [facility], [facility] Ibuprofen 800 MG Oral Tablet 05/01/2024 Provider: Diagnosis: Last Documented On 4 11:06AM By Savannah Belcher ; [facility], [facility] metFORMIN HCl 500 MG Oral Tablet 05/01/2024 Provider : Diagnosis: Last Documented On 4 11:06AM By Savannah Belcher ; [facility], [facility] Promethazine HCl 25 MG Oral Tablet 05/01/2024 Provid er: Diagnosis: Last Documented On 4 11:06AM By Savannah Belcher ; [facility], [facility] Ventolin HFA 108 (90 Base) MCG/ACT Inhalation Ae rosol Solution 05/01/2024 Provider: Diagnosis: Last Documented On 4 11:06AM By Savannah Belcher ; [facility], [facility] Symbicort 160-4.5 MCG/ACT Inhalation Aerosol 4 Provider: Diagnosis: Last Documented On 4 11:06AM By Savannah Belcher ; [facility], [facility] Medications Administered Includes: Administered Medications from this encounter No Administered Medications Recorded Vital Signs Includes: Vital Signs from this encounter Vital Name 06/02/2024 11:21A Height (in) 64 Weight (lb) 165.6 Body Mass Index 28.4 Body Surface Area 1.8 Pain Level 10 Note: lc Last Documented: On 06/02/2024 11:22A M ; [facility], [facility] Results Includes: Results discussed during this encounter No Results Recorded For Specified Dates History of Present Illness Includes: History of Present Illness from this encounter ALIE William is a 38 year old female. - Allergy list reviewed - Problem list reviewed - Medication list reviewed Patient was seen yesterday and had had an injection to the right shoulder yesterday she says she is having more pain with this. She says when she was seen yesterday Dr. Jo told her she had a partial cuff tear. She has not had any fevers with this she says her pain is 10/10 her family physician was given her some pain medicine looks leg but he was out of the office due to Covid. Social History Description Last Updated Caffeine use 06/02/2024 Last Documented On 4 1:58PM ; [facility], [facility] No recent change in diet 06/02/2024 Last Documented On 4 1:58PM ; [facility], [facility] Not exercising regularly 06/02/2024 Last Documented On 4 1:58PM ; [facility], [facility] Not using alcohol 06/02/2024 Last Documented On 4 1:58PM ; [facility], [facility] Not using drugs 06/02/2024 Last Documented On 4 1:58PM ; [facility], [facility] Yes, current smoker. 06/02/2024 Last Documented On 4 1:58PM ; [facility], [facility] Smoking Status Unknown Procedures and Surgical History Includes: Procedures from this encounter Procedures Code Diagnosis Performing Provider Service L ocation Service Date [id number] Last Documented On 4 11:03AM ; [facility], [facility] Surgical History Last Updated History of appendectomy 06/02/2024 Last Documented On 4 1:58PM ; [facility], [facility] History of History of Gallbladder 2023 Last Documented On 4 1:58PM ; [facility], [facility] History of hysterectomy 06/02/2024 Last Documented On 4 1:58PM ; [facility], [facility] History of Previous Fractures 06/02/2024 Last Documented On 4 1:58PM ; [facility], [facility] History of total knee arthroplasty 06/02 Last Documented On 4 1:58PM ; [facility] Medical History Includes: Medical History addressed during this encounter Description Last Updated History of asthma 06/02/2024 Last Documented On 4 1:58PM ; [facility], [facility] History of depression 06/02/2024 Last Documented On 4 1:58PM ; [facility], [facility] History of Fractures 06/02/2024 Last Documented On 4 1:58PM ; [facility] History of History of Cancer 06/02/2024 Last Documented On 4 1:58PM ; [facility], [facility] Family History Includes: Family History addressed during this encounter Description Last Updated Family history of cancer 06/02/2024 Last Documented On 4 1:58PM ; [facility], [facility] Family history of heart disease 06/02/20 24 Last Documented On 4 1:58PM ; [facility], [facility] Review of Systems Includes: Review of Systems [...] Active Last Documented On 4 1:40PM ; [facility], [facility] Encounters Encounter Provider Location Date Check-In Time Check-Out Time Diagnosis FOLLOW UP/EST Jose Cruz Espinoza PA-C [facility] 06/02/20 24 11:01AM 11:51AM Overweight Insurance Includes: Active Insurance Policies Plan Name Member ID Group # Subscriber Relationship Effect anil Dates 1 - TRA[employer] [id number] Germania William Self 02/29/2024 - Unknown Clinical Notes Includes: Clinical Notes from this encounter * Progress note Date Encounter Last Documented by 06/02/2024 FOLLOW UP/EST Last documented on 06/13/2024; 1:58 PM, Jose Cruz Espinoza PA-C; [facility] Active Problems & Conditions - Joint Pain, Localized in the Right Shoulder Chief Complaint The Chief Complaint is: Right shoulder/cervical pain. Referred Here Referred by . History of Present Illness Germania William is a 38 year old female. - Allergy list reviewed - Problem list reviewed - Medication list reviewed Patient was seen yesterday and had had an injection to the right shoulder yesterday she says she is having more pain with this. She says when she was seen yesterday Dr. Jo told her she had a partial cuff tear. She has not had any fevers with this she says her pain is 10/10 her family physician was given her some pain medicine looks leg but he was out of the office due to Covid. Current Medication - ALPRAZolam 1 MG Oral [...] allergic reaction. Physical Findings - Vitals taken 06/02/2024 11:21 am lc Height 64 in Weight 165 lbs 9.6 oz Body Mass Index 28.4 kg/m2 Body Surface Area 1.8 m2 Pain Level 10 She is tender in the left upper trapezius more today There is no warmth there is no erythema with the right shoulder Grossly tender throughout the shoulder itself Pain with range motion of the shoulder Assessment - Overweight Right shoulder pain Previous Tests Imaging: MRI Scan: An MRI was performed 05/16/2024 [facility] MRI RIGHT SHOULDER. Available previous imaging studies were reviewed Available previous history reviewed Counseling/Education - Tobacco use - Use of tobacco assessment performed - Intervention and counseling on cessation of tobacco use - Lose weight Plan Patient was seen by myself Jose Cruz Espinoza PA-C. Patient will follow up right now her next visit it is getting appointment I told her I would speak with Dr. Jo about her and find out if he was willing to offer surgery for her. I have told her I can not give her anything for pain. She states it Dr. Jo in his not going to offer her surgery she is going to go see Dr. Jasmine. Note to be off work Notes This dictation was done with voice recognition software and may contain errors and omissions. Health Reminders - Assess BMI satisfied 06/02/2024. - Assess Tobacco Use satisfied 06/02/2024. - Follow Up Plan BMI Management satisfied 06/02/2024. - Smoking & Tobacco Cessation Intervention and Counseling satisfied 06/02/2024.
--- OUTSIDE RECORDS SUMMARY | 2025-06-26 21:20 | XMS_ITS | Clinical Summary ---
Author Organization [facility] , [facility] Address [address] [place] [address] Phone Care Team Providers Care Medical Auditor Name Role Phone Sandro MAGALLON, Levon Rodrigues Unavailable [phone] Reason for Visit and Chief Complaint The Chief Complaint is: right shoulder/cervical pain Problems Includes: Problems addressed during this encounter and other active Problems Current Visit Onset Date Resolved Date Provider Lidia mcduffie Status Joint Pain Shoulder Right 06/01/2024 Levon horn MD Active Last Documented On 4 11:05AM ; [facility], [facility] Plan of Treatment Instructions to patient Intervention and counseling on cessation of tobacco use Last Documented On 4 11:13AM ; [facility], [facility] Lose weight Last Documented On 4 11:13AM ; [facility], [facility] Assessments Includes: Assessments from this encounter Findings - Overweight - Last Documented On 06/01/2024 11:50AM ; [facility], [facility] Instructions Includes: Instructions from this encounter Instructions to patient Intervention and counseling on cessation of tobacco use Last Documented On 4 11:13AM ; [facility], [facility] Lose weight Last Documented On 4 11:13AM ; [facility], [facility] Medical Equipment - Implanted Devices Includes: Current Devices No Medical Equipment Recorded Medications Includes: Medications discussed during this encounter and other current Medications Discontinued / Stopped on this date on 05/08/2024 HYDROcodone-Acetaminophen 10-325 MG Oral Tablet Provider: Diagnosis: Last Documented On 4 11:11AM By Savannah Belcher ; [facility], [facility] hydrOXYzine HCl 25 MG Oral Tablet Provide r: Diagnosis: Last Documented On 4 11:11AM By Savannah Belcher ; [facility] Current Medications (continue as prescribed) HYDROcodone-Acetaminophen 10-325 MG Oral Tablet 2023 Provider: Diagnosis: Last Documented On 4 11:06AM By Savannah Belcher ; [facility], [facility] Lidocaine 5% External Patch 05/26/2024 Provider: Diagnosis: Last Documented On 4 11:06AM By Savannah Belcher ; [facility], [facility] ALPRAZolam 1 MG Oral Tablet 05/19/2024 Provider: Diagnosis: Last Documented On 4 11:06AM By Savannah Belcher ; [facility], [facility] Estradiol 2 MG Oral Tablet 05/18/2024 Provider: Diagnosis: Last Documented On 4 11:06AM By Savannah Belcher ; [facility], [facility] Mirtazapine 15 MG Oral Tablet 05/18/2024 Provider: Diagnosis: Last Documented On 4 11:06AM By Savannah Belcher ; [facility], [facility] Omeprazole 20 MG Oral Capsule Delayed Release 05/04/20 24 Provider: Diagnosis: Last Documented On 4 11:06AM By Savannah Belcher ; [facility], [facility] Fluticasone Propionate 50 MCG/ACT Nasal Suspension 01/2024 Provider: Diagnosis: Last Documented On 4 11:06AM By Savannah Belcher ; [facility], [facility] Ibuprofen 800 MG Oral Tablet 05/01/2024 Provider: Diagnosis: Last Documented On 4 11:06AM By Savannah Belcher ; [facility], [facility] metFORMIN HCl 500 MG Oral Tablet 05/01/2024 Provider : Diagnosis: Last Documented On 4 11:06AM By Savannah Belcher ; [facility], [facility] Promethazine HCl 25 MG Oral Tablet 05/01/2024 Provid er: Diagnosis: Last Documented On 4 11:06AM By Savannah Belcher ; [facility] Ventolin HFA 108 (90 Base) MCG/ACT Inhalation Ae rosol Solution 05/01/2024 Provider: Diagnosis: Last Documented On 4 11:06AM By Savannah Belcher ; [facility], [facility] Symbicort 160-4.5 MCG/ACT Inhalation Aerosol 4 Provider: Diagnosis: Last Documented On 4 11:06AM By Savannah Belcher ; [facility], [facility] Medications Administered Includes: Administered Medications from this encounter No Administered Medications Recorded Vital Signs Includes: Vital Signs from this encounter Vital Name 06/01/2024 11:11A Height (in) 64 Weight (lb) 165.4 Body Mass Index 28.4 Body Surface Area 1.8 Pain Level 9 Note: lc Last Documented: On 06/01/2024 11:12A M ; [facility], [facility] Results Includes: Results discussed during this encounter No Results Recorded For Specified Dates History of Present Illness Includes: History of Present Illness from this encounter ALIE William is a 38 year old female. - Symptoms giving way, locking nothing makes the pain better movement makes the pain worse. - Allergy list reviewed - Problem list reviewed - Medication list reviewed - Previous history of new onset pain 02/29/2024 Work Injury - Patient pain level from 1-10: 9 - Yes, previous treatment. PCP - History of Physical Therapy [facility] - - Review of medications documented Medications used for this condition: Social History Description Last Updated Caffeine use 06/01/2024 Last Documented On 4 11:35AM ; [facility], [facility] No recent change in diet 06/01/2024 Last Documented On 4 11:35AM ; [facility], [facility] Not exercising regularly 06/01/2024 Last Documented On 4 11:35AM ; [facility], [facility] Not using alcohol 06/01/2024 Last Documented On 4 11:35AM ; [facility], [facility] Not using drugs 06/01/2024 Last Documented On 4 11:35AM ; [facility], [facility] Yes, current smoker. 06/01/2024 Last Documented On 4 11:35AM ; [facility], [facility] Smoking Status Unknown Procedures and Surgical History Includes: Procedures from this encounter Procedures Code Diagnosis Performing Provider Service L ocation Service Date an MRI was performed 05/16/2024 [facility] ~MRI RIGHT SHOULDER [id number] Last Documented On 4 11:13AM ; [facility], [facility] Surgical History Last Updated History of appendectomy 06/01/2024 Last Documented On 4 11:35AM ; [facility] History of History of Gallbladder 2023 Last Documented On 4 11:35AM ; [facility] History of hysterectomy 06/01/2024 Last Documented On 4 11:35AM ; [facility], [facility] History of Previous Fractures 06/01/2024 Last Documented On 4 11:35AM ; [facility] History of total knee arthroplasty 06/01 Last Documented On 4 11:35AM ; [facility], [facility] Medical History Includes: Medical History addressed during this encounter Description Last Updated History of asthma 06/01/2024 Last Documented On 4 11:35AM ; [facility] History of depression 06/01/2024 Last Documented On 4 11:35AM ; [facility] History of Fractures 06/01/2024 Last Documented On 4 11:35AM ; [facility] History of History of Cancer 06/01/2024 Last Documented On 4 11:35AM ; [facility], [facility] Family History Includes: Family History addressed during this encounter Description Last Updated Family history of cancer 06/01/2024 Last Documented On 4 11:35AM ; [facility] Family history of heart disease 06/01/20 Last Documented On 4 11:35AM ; [facility] Review of Systems Includes: Review of Systems [...] Active Last Documented On 4 1:40PM ; [facility], [facility] Encounters Encounter Provider Location Date Check-In Time Check-Out Time Diagnosis WC NEW PATIENT Levon Jo MD [facility] 06/01/20 24 10:43AM 11:49AM Overweight Insurance Includes: Active Insurance Policies Plan Name Member ID Group # Subscriber Relationship Effect anil Dates 1 - [employer] [id number] Germania William Self 02/29/2024 - Unknown Clinical Notes Includes: Clinical Notes from this encounter No Clinical Notes Recorded
[2025-06-26 21:28] VITALS: BP 122/70; PULSE 58; RESP 17; TEMP 37.4; O2SAT 100; BMI 25.7
--- NOTE | 2025-06-26 21:37 | XR_ITS ---
PROCEDURE INFORMATION: Exam: XR Right Knee Exam date and time: 06/26/2025 9:38 PM Age: 40 years old Clinical indication: Right; Medial knee pain, HX meniscus surg TECHNIQUE: Imaging protocol: Radiologic exam of the right knee. Views: 3 views. COMPARISON: MR KNEE RT WO CON 01/05/2023 11:22 AM FINDINGS: Bones/joints: Normal. Soft tissues: Normal. IMPRESSION: No acute findings.
--- NOTE | 2025-06-26 21:55 | ED_ITS ---
Discharge Plan Disposition Patient Disposition: Home, Self-Care Prescriptions Prescriptions: New methocarbamol 500 mg tablet 500 mg PO Q6H PRN (Reason: pain) Qty: 30 0RF No Action buprenorphine-naloxone 8-2 mg tablet, sublingual 1 tab sublingual albuterol sulfate 90 mcg/actuation HFA aerosol inhaler 2 puff INHALATION Q6 PRN (Reason: Shortness Of Breath Or Wheezing) Qty: 8.5 10RF albuterol sulfate 2.5 mg /3 mL (0.083 %) solution for nebulization 2.5 mg IH BID PRN (Reason: Shortness Of Breath) Qty: 75 5RF budesonide-formoterol [Symbicort] 160-4.5 mcg/actuation HFA aerosol inhaler See Rx Instructions .ROUTE .COMPLEX Qty: 10.2 10RF Dose Instruction: INHALE TWO PUFFS BY MOUTH TWICE DAILY --RINSE MOUTH AFTER USE-- Rx Instructions: INHALE TWO PUFFS BY MOUTH TWICE DAILY --RINSE MOUTH AFTER USE-- fluticasone propionate 50 mcg/actuation spray,suspension 2 spray INTRANASAL DAILY Qty: 16 10RF Rx Instructions: each nostril daily loratadine 10 mg tablet 10 mg PO DAILY Qty: 90 1RF Patient Comments: TAKE ONE TABLET BY MOUTH EVERY DAY FOR ALLERGY symptoms mirtazapine [Remeron] 15 mg tablet 15 mg PO HS PRN (Reason: sleep) Qty: 30 3RF montelukast 10 mg tablet 10 mg PO DAILY Qty: 90 3RF omeprazole 20 mg capsule,delayed release(DR/EC) 20 mg PO DAILY Qty: 90 3RF citalopram [Celexa] 20 mg tablet 20 mg PO DAILY Qty: 90 3RF estradiol 2 mg tablet See Rx Instructions .ROUTE .COMPLEX Qty: 30 5RF Dose Instruction: TAKE ONE TABLET BY MOUTH EVERY DAY Rx Instructions: TAKE ONE TABLET BY MOUTH EVERY DAY erythromycin 5 mg/gram (0.5 %) ointment 1 applic ophthalmic (eye) DAILY Qty: 3.5 1RF alprazolam 1 mg tablet 1 mg PO HS PRN (Reason: sleep) Qty: 15 0RF cetirizine 10 mg tablet 10 mg PO DAILY Qty: 90 3RF hydroxyzine HCl 25 mg tablet See Rx Instructions .ROUTE .COMPLEX Qty: 90 0RF Dose Instruction: TAKE TWO TABLETS BY MOUTH EVERY 6 HOURS NEEDED FOR ANXIETY Rx Instructions: TAKE TWO TABLETS BY MOUTH EVERY 6 HOURS NEEDED FOR ANXIETY lidocaine 5 % adhesive patch,medicated 1 patch topical DAILY Qty: 30 12RF Rx Instructions: leave on most painful area for up to 12 hrs promethazine 25 mg tablet 25 mg PO TID Qty: 90 0RF Referrals Follow up/Referrals: Joao Jo DO [Staff Physician, Orthopedics] - See instructions Jitendra Hartley MD [Primary Care Provider, Family Practice] - See instructions Activity Restrictions/Add. Instructions Additional Instructions/Restrictions: Please follow-up with Dr. Jo. Please take Tylenol and ibuprofen and muscle relaxer as needed for pain. Please wear knee brace as needed for pain. Clinical Impressions Clinical Impression: Acute knee pain Qualifiers: Laterality: right Qualified Code(s): M25.561 - Pain in right knee Print Language Print Language: Grenadian Discharge ED Provider: Derrick Hsieh General Adult HPI General Chief complaint: Extremity Injury, Lower Stated complaint: right knee pain Time Seen by Provider: 06/26/25 21:00 Mode of Arrival: Ambulatory Source of Information: Patient Description of Symptoms (Recalled from ER Triage Doc. by RN): Pt went to get up out of her swing one week ago and states she felt like a rubberband popped in her right knee. Pt had a patellar tendon and meniscus repair back in 2020. She called her Ortho Dr and they are not able to see her until Jul 02. Pt states the pain and swelling has gotten worse and she cannot take it anymore. History of Present Illness HPI narrative: 40-year-old female with history of prior right patellar dislocation status post surgery in 2020 presents for severe right knee pain. She was on a swing about a week ago when she felt a pop. She has not had any discrete dislocation of the patella but she is having worsening pain and swelling over the medial right knee in the area where she had her prior surgery. She reports the pain has been gradually worsening. No fever or infectious symptoms, no history of IV drug use. No other trauma. Related Data Home Medications ?Medication ?Instructions ?Recorded ?Confirmed buprenorphine 8 mg-naloxone 2 mg 1 tab sublingual 10/2806/01/25 sublingual tablet Previous Rx's ?Medication ?Instructions ?Recorded cetirizine 10 mg tablet 10 mg PO DAILY #90 tabs 07/29 10/20 albuterol sulfate 2.5 mg/3 mL 2.5 mg (3 mL) inhalation BID PRN 04/06/25 (0.083 %) solution for nebulization Shortness Of Breat h #75 mL albuterol sulfate 90 mcg/actuation 2 puff inhalation Q 6 PRN Shortness 04/06/25 aerosol inhaler Of Breath Or Wheezing #8.5 g alysha budesonide-formoterol HFA 160 See Rx Instructions .Rou te 04/06/25 mcg-4.5 mcg/actuation aerosol .COMPLEX #10.2 grams inhaler (Symbicort) fluticasone propionate 50 2 spray intranasal DAILY All ergy 04/06/25 mcg/actuation nasal symptoms #16 grams spray,suspension loratadine 10 mg tablet 10 mg PO DAILY #90 tabs 03/27 10/21 mirtazapine 15 mg tablet (Remeron) 15 mg PO HS PRN sle ep #30 tabs 04/06/25 montelukast 10 mg tablet 10 mg PO DAILY #90 tabs 03/27 10/21 omeprazole 20 mg capsule,delayed 20 mg PO DAILY peptic ulcer #90 04/06/25 release caps citalopram 20 mg tablet (Celexa) 20 mg PO DAILY #90 ta bs 04/30/25 estradiol 2 mg tablet See Rx Instructions .Route 0 04/30/25 .COMPLEX #30 tabs hydroxyzine HCl 25 mg tablet See Rx Instructions .Rout e 05/02/25 .COMPLEX #90 tabs lidocaine 5 % topical patch 1 patch topical DAILY #30 ea 06/11/25 promethazine 25 mg tablet 25 mg PO TID #90 tabs alprazolam 1 mg tablet 1 mg PO HS PRN sleep #15 tab s 06/20/25 erythromycin 5 mg/gram (0.5 %) eye 1 applic ophthalmic (eye) DAILY 06/20/25 ointment #3.5 grams methocarbamol 500 mg tablet 500 mg PO Q6H PRN pain #30 tabs 06/26/25 Allergies Allergy/AdvReac Type Severity Reaction Status Date / Time buspirone Allergy Mild Agitated Verified 06/01/25 08:27 cefdinir Allergy Mild Blister Verified 06/01/25 08:27 zolpidem (From Ambien) Allergy Mild Dizziness Verified 06/01/25 08:27 codeine (CODEINE) Allergy Unknown NA-NAUSEA/V Verified 06/01/25 08:27 OMITING RONDEC COUGH MED AdvReac Unknown Blister Uncoded 06/01/25 08:27 [facility] Disclaimer: The information contained in this section may have been updated after the patient was seen, as this information can be updated by other users. Medical History Right shoulder pain Allergic rhinitis Gastroesophageal reflux disease Syncope Tobacco dependence syndrome Dyspnea Social History Smoking Status: Current every day smoker tobacco type: cigarettes packs per day: 3 second hand exposure: No alcohol intake: current alcohol intake frequency: holidays/special occasions only substance use type: marijuana current occupational status: disabled Travel in the last 8 weeks?: None household members: significant other housing: house current occupational exposures/hazards: No Have you lived/traveled outside [place] in past 30 days?: No Contact w/someone who lives/traveled outside [place] past 30 days?: No Exposure to someone with infectious disease in past 14 days?: No Do you have a fever (greater than 100.4 F or 38 C)?: No Have you tested positive for COVID-19?: No Exposed to someone with COVID-19 in past 14 days?: No Do you have a sore throat?: No Do you have a cough?: No Do you have any weakness?: No Do you have any diarrhea?: No Are you experiencing any unusual bleeding?: No Do you have any muscle aches/pain?: No Do you have any abdominal pain?: No Are you experiencing loss of taste or smell?: No Other Medical History Have you received the Flu Vaccine for this season: No Have you received the Pneumonia Vaccine: No ROS Obtained: Yes All systems reviewed & no additional complaints except as documented Physical Exam General General appearance: alert and in no apparent distress Head Head exam: atraumatic and normocephalic Eye Eye exam: Present normal appearance, PERRL and EOMI ENT ENT exam: Present normal oropharynx and normal external ear exam Neck Neck exam: Present normal inspection and full ROM Chest Chest inspection: Present normal inspection and symmetric chest wall rise; Absent tenderness Respiratory Respiratory exam: Present normal lung sounds bilaterally; Absent respiratory distress Cardiovascular Cardiovascular exam: Present regular rate and normal rhythm Abdominal Exam Abdominal exam: Present soft; Absent distention, tenderness or guarding Extremities Exam Extremities exam: Present tenderness (Significant tenderness to the right medial knee, pain with movement of the patella.), joint swelling (Mild right knee swelling anteriorly) and other (Patient has normal straight leg raise, normal lower extremity strength and sensation. Normal pulses.) Back Exam Back exam: Present normal inspection; Absent tenderness Neurological Exam Neurological exam: Present alert and oriented X3; Absent motor sensory deficit Psychiatric Psychiatric exam: Present normal affect and normal mood Skin Skin exam: Present warm, dry and normal color Lymphatic Lymphatic Findings: no adenopathy Medical Decision Making Medical Records Medical records reviewed: Yes I reviewed the patient's medical records. Screening: Per USPSTF and CDC recommendations, given the prevalence of disease in our region, it is our hospital?s policy to screen for HIV and viral Hepatitis for all patients aged 18 and over and those with ongoing risk factors. Gian Inquiry Pt receiving controlled substance: No Gian was queried for this patient: No Vital Signs: 06/26/25 21:28 06/26/25 22:10 Temperature 99.3 F 98.9 F Temperature Source Oral Tympanic Pulse Rate 68 Pulse Rate [Left] 58 L Respiratory Rate 17 17 Blood Pressure 123/74 Blood Pressure [Right Arm] 122/70 Blood Pressure Mean [Right Arm] 87 Blood Pressure Source Automatic Cuff Blood Pressure Source [Right Arm] Automatic Cuff Blood Pressure Position Sitting Blood Pressure Position [Right Arm] Sitting 02 Sat by Pulse Oximetry 100 Oxygen Delivery Method Room Air Room Air Lab Data Lab results reviewed: Yes I reviewed the patient's lab results. Orders (Tests/Meds): ED MEDICATIONS Discontinued Medications Generic Name Dose Route Start Last Admin Trade Name Freq PRN Reason Stop Dose Admin Methocarbamol 1,000 mg 06/26/25 22:06 Methocarbamol 500mg Tablet PO 06/26/25 22:07 ONCE ONE Ondansetron HCl 4 mg 06/26/25 21:57 06/26/25 22:04 Ondansetron 4mg Odt SL 06/26/25 21:58 4 mg ONCE ONE Administration Oxycodone HCl 5 mg 06/26/25 21:57 06/26/25 22:04 Oxycodone 5mg Immediate Release Tablet PO 07/26/25 21:56 5 mg Q4HP PRN Administration Severe Pain (7-10) ORDERS Category Date Time Status Knee XR right 3 views [XR knee RT 3V] Stat Exams 06/26/25 21:37 Completed Medical Decision Narrative: 40-year-old female with history of prior patellar dislocation status post surgery several years ago presents for worsening right medial knee pain after she felt a pop about a week ago.. History was obtained via interactive discussion with patient, chart review. On arrival, patient is [afebrile, hemodynamically stable, satting appropriately, alert, oriented x4, GCS 15], moving all extremities spontaneously. Full physical exam performed and significant for findings as documented above, no obvious knee instability, significant tenderness to the right medial knee with mild associated swelling, normal distal neurovascular exam Differential includes but is not limited to fracture, dislocation, neurovascular/ligamentous injury.. Patient was given oxycodone and Robaxin for symptomatic management and correction of underlying abnormalities. Workup initiated including radiographs of the right knee. On re-evaluation, patient [remains afebrile, HD stable.] Imaging independently interpreted by me and significant for no evidence of joint effusion or bony injury. See radiology read for full review of final results. Given patient history, exam and workup, patient's presentation most likely represents ligamentous knee injury. She was placed in a knee brace and given crutches and discharged with instructions to follow-up with Dr. Jo. Procedures Risk/Benefits of Procedure(s) Were Explained: Yes Critical Care Critical Care Time Critical Care Time: No
[2025-06-26] MEDS: OXYCODONE 5MG IMMEDIATE RELEASE TABLET 5 MG PO (22:04)
[2025-06-26] MEDS: ONDANSETRON 4MG ODT 4 MG SL (22:04)
[2025-06-26 22:10] VITALS: BP 123/74; PULSE 68; RESP 17; TEMP 37.2; O2SAT 100
== END 2025-06-26 22:11 | disposition home or self-care (01) ==
PROVIDERS: Emergency Provider Emergency Medicine; PCP Family Medicine
DX: M25.561 Pain in right knee (principal)
CPT/HCPCS: 73562; 99283; Q0162